=== PATIENT | male | born 1960 | race African-American/Black ===

== ENCOUNTER 2020-07-18 11:11 | Outpatient (CLI) | payer MEDICARE, MEDICAID, SELFPAY ==
--- NOTE | ~2020-07-18 | US_ITS ---
US abdomen limited INDICATION: Cirrhosis PROCEDURE: Realtime right upper abdominal ultrasound. COMPARISON: CT dated 04/03/2019 FINDINGS: The pancreas is normal without focal mass or pancreatic ductal dilation. Liver echotexture is somewhat heterogeneous. There is nodular surface to the liver, compatible with cirrhosis. No disc rete mass identified. There is normal directional flow in the portal vein. Spleen is enlarged measur ing 13.5 cm. There are gallstones. Common bile duct measures 3 mm. No sonographic Katz's sign. IMPRESSION: 1: Cirrhosis of the liver. 2: Splenomegaly. 3: Cholelithiasis. Reviewed, dictated and finalized at location A. OR PILOT
== END 2020-07-18 11:12 | disposition home or self-care (01) ==
LOC: ANHIMG 11:19
PROVIDERS: PCP Family Medicine Adolescent Medicine; Visit Provider Internal Medicine Gastroenterology
DX: K70.30 Alcoholic cirrhosis of liver without ascites (principal); R16.1 Splenomegaly, not elsewhere classified; K80.20 Calculus of gallbladder without cholecystitis without obstruction
CPT/HCPCS: 76705

== ENCOUNTER 2021-03-24 11:54 | Outpatient (CLI) | payer MEDICARE, MEDICAID, SELFPAY ==
--- NOTE | ~2021-03-24 | US_ITS ---
EXAMINATION: US right upper quadrant EXAM DATE: 03/24/2021 12:41 INDICATION: Cirrhosis of liver with ascites. TECHNIQUE: Multiple grayscale and Doppler images of the abdomen right upper quadrant were obtained (b y a technologist who performed the scan) and subsequently reviewed. Comparison is made to prior exami nation from 07/18/2020 FINDINGS: The pancreatic head and body are normal in appearance. The pancreatic tail is not visualized. Some liver surface undulations without discrete nodularity. There are no focal liver lesions identified. There is no evidence of intrahepatic biliary duct dilation. Portal venous flow was seen in the hep atopedal, normal direction and has normal Doppler waveform. No right-sided hydronephrosis. Common bile duct measures 2-3 mm, which is normal. The gallbladder wall is normal in thickness, with expected amount of distention. No sonographic evidence of pericholecystic fluid. Small poorly calci fied gallstones suspected. Technologist performing exam reports patient did not demonstrate sonograp hic Katz's sign. Please note that this sign is less reliable in patients who have received pain me dication. IMPRESSION: Cholelithiasis. Reviewed, dictated and finalized at location A. IMPRESSION: Cholelithiasis.
== END 2021-03-24 11:55 | disposition home or self-care (01) ==
PROVIDERS: PCP Family Medicine Adolescent Medicine; Visit Provider Internal Medicine Gastroenterology
DX: K74.60 Unspecified cirrhosis of liver (principal); R18.8 Other ascites; K80.20 Calculus of gallbladder without cholecystitis without obstruction
CPT/HCPCS: 76705

== ENCOUNTER 2021-07-29 19:33 | Inpatient (IN) | payer MEDICARE, MEDICAID, SELFPAY ==
--- NOTE | ~2021-07-29 | XR_ITS ---
EXAMINATION: XR chest 1V EXAM DATE: 07/30/2021 02:10 INDICATION: cough,left sided cp,head cold,nasal congestion,hx cirrhosis. TECHNIQUE: Portable AP frontal chest x-ray was obtained. Comparison is made to prior examination from 04/03/2019. FINDINGS: There is no focal air space disease. There are no pleural effusions. The cardiothymic bran houette is normal. There is no pneumothorax. There are no osseous or soft tissue abnormalities in t his skeletally immature patient. Lungs have normal volume. IMPRESSION: No acute cardiopulmonary findings. Reviewed, dictated and finalized at location A. HEAD ROLLER
--- NOTE | ~2021-07-29 | CT_ITS ---
EXAMINATION: CT abdomen pelvis wo con DATE: 07/30/2021 02:57 INDICATION: Decreased appetite. Cirrhosis. TECHNIQUE: Computed tomography (CT) of the abdomen and pelvis was performed without intravenous contr ast. Automated exposure control and iterative reconstruction technique were employed. The dose-length product was 326.36 mGy-cm. COMPARISON: CT abdomen and pelvis 04/03/2019 FINDINGS: The visualized portions of the lung bases are clear without pneumonia or pleural effusion. The heart size is normal. No pericardial effusion. The liver demonstrates a nodular surface contour, consistent with cirrhosis. The spleen is normal. There are gallstones in the gallbladder, which is no rmal in size. The pancreas and adrenal glands are normal. There is a 3 mm stone in right kidney. Ther e is a 1 mm stone in left kidney. There is a 2 mm stone in distal left ureter. There is a supraumbili mitchel hernia containing fat. There is a left inguinal hernia containing fat. There is an anastomosis in the rectosigmoid. The appendix is normal. There are no dilated loops of bowel. There are no patholog ically enlarged lymph nodes. There is no free intraperitoneal fluid. There is advanced right hip oste oarthritis. There is severe left hip osteoarthritis. There is mild lumbar spondylosis. IMPRESSION: 1. 2 mm stone in distal left ureter. No hydronephrosis. 2. Small bilateral nonobstructing kidney stones. 3. Supraumbilical ventral hernia containing fat. Left inguinal hernia containing fat. 4. Cirrhosis of the liver. 5. Cholelithiasis. Reviewed, dictated and finalized at location B. OGRAPHY/MAPPING TECHNICIAN IMPRESSION: 1. 2 mm stone in distal left ureter. No hydronephrosis. 2. Small bilateral nonobstructing kidney stones. 3. Supraumbilical ventral hernia containing fat. Left inguinal hernia containin g fat. 4. Cirrhosis of the liver. 5. Cholelithiasis.
--- NOTE | ~2021-07-29 | US_ITS ---
EXAMINATION: US scrotum doppler DATE: 08/04/2021 15:37 INDICATION: Scrotal swelling TECHNIQUE: Testicular sonogram utilizing grayscale and Doppler COMPARISON: CT dated 07/30/2021 FINDINGS: The right testis measures 2.3 x 3.3 x 2.4 cm. The left testis measures 3.7 x 2.9 x 2.1 cm. Symmetric normal grayscale appearance to both testes. There is normal vascular flow to both testes. The right e pididymis is normal with normal vascular flow. 7 mm left epididymal head cyst. The left epididymis is otherwise normal with normal vascular flow. There is no varicocele. Large right hydrocele. IMPRESSION: 1. Large right hydrocele which appears new since CT dated 07/30/2021. Otherwise unremarkable scrotal ultrasound. Reviewed, dictated and finalized at location B. LANE CAPTAIN IMPRESSION: 1. Large right hydrocele which appears new since CT dated 07/30/2021. Otherwis e unremarkable scrotal ultrasound.
--- NOTE | ~2021-07-29 | XR_ITS ---
EXAMINATION: XR abdomen/kub 1V EXAM DATE: 07/30/2021 06:15 INDICATION: Kidney stone. Left distal ureteral 1 mm stone. TECHNIQUE: Frontal projection(s) of the abdomen for interpretation. FINDINGS: Difficult to confidently identify the punctate left distal ureteral calcification seen on CT. There is rectosigmoid anastomosis material. Nonobstructive bowel gas pattern. 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 IMPRESSION: Can't confidently identify nephrolithiasis or left ureteral stone. Reviewed, dictated and finalized at location A. ESMITH HELPER
[2021-07-29 19:36] VITALS: BP 94/54; PULSE 57; RESP 18; TEMP 36.6; O2SAT 95
[2021-07-29 22:58] VITALS: BP 110/60; PULSE 75; RESP 18; O2SAT 100
[2021-07-30] VITALS (13 sets, daily range): BP systolic 119–157; BP diastolic 48–79; PULSE 55–75; RESP 14–18; TEMP 36.3–36.9; O2SAT 99–100; BMI 23.2
--- NOTE | 2021-07-30 01:45 | ED.GENADULT ---
HPI - General Adult General Chief complaint: Upper Respiratory Infection Stated complaint: weight loss, not taking care of himself Time Seen by Provider: 07/30/21 01:39 Source: RN notes reviewed History of Present Illness HPI narrative: Patient presents emergency department from home for upper respiratory infection. Patient states over the past 5 days he has had rhinorrhea with a cough this been nonproductive he also states that he has been having frequent sneezing. Family present with his sister she states the patient has been having increasing weakness and has had a weight loss of approximately 40 pounds over the past month patient states he has been feeling more weak in general he denies any fevers or chills chest pain shortness of breath abdominal pain nausea vomiting or any other symptoms Related Data Home Medications Medication Instructions Recorded Confirmed famotidine 07/30/21 fluticasone propionate INTRANASAL 07/30/21 furosemide 07/30/21 07/30/21 pantoprazole PO 07/30/21 spironolactone 07/30/21 trazodone 07/30/21 07/30/21 Allergies Allergy/AdvReac Type Severity Reaction Status Date / Time iodine Allergy Unknown Unknown Verified 07/30/21 03:24 Contrast Media Allergy Mild Hives / Uncoded 07/30/21 03:24 Red Face Review of Systems Review of Systems: Gen.: Denies fevers or chills Eyes: Denies eye pain or visual change ENT: Reports rhinorrhea Respiratory: Denies shortness of breath ports cough CV: Denies chest pain or palpitations GI: Denies abdominal pain nausea, emesis or diarrhea Musculoskeletal: Denies back pain or muscle pain Neuro: Reports weakness Skin: Denies rash Except as documented, all other systems reviewed and negative [facility] Past Medical History Medical History (Updated 07/30/21 @ 06:19 by Rony Geiger DO) Schizophrenia Family History Family History (Updated 11/11/18 @ 09:45 by DOCTOR UNKNOWN) Sibling Family history of malignant neoplasm Father Family history of lung cancer Mother Family history of congestive heart failure Other Hypertension Social History Social History Smoking status: Current every day smoker Exam Narrative: APPEARANCE: No acute distress, nontoxic, resting in bed EYES: EOMI HEENT: Normocephalic, atraumatic, OMM RESPIRATORY: No respiratory distress Clear to auscultation bilaterally with no rhonchi wheezing or rales. CARDIOVASCULAR: Regular rate and rhythm without murmurs rubs or gallops. ABDOMINAL: Soft, nontender, nondistended, no rebound or guarding MUSCULOSKELETAl: Moves all extremities. No clubbing, cyanosis or edema. NEURO: Awake and alert. Following commands, speech normal, no focal deficits SKIN:: Warm, dry. No rashes lesions or abrasions PSYCHIATRIC: Normal affect/mood, Course Course Emergency Course: Patient was initially seen in triage room secondary to [facility] being at peak census. Called and discussed with Dr. Guerra for urology presentation work-up agrees with consult to Dr. Akhtar with current antibiotics Discussed with Dr. Jalloh presentation work-up agrees with consult at this time Discussed with Dr. Wiseman presentation work-up agrees with admission Called and updated updated sister Discussed with patient and family results of workup and diagnosis. Discussed need for admission. Patient and family understand and agree to current treatment plan Vital Signs Vital signs: Vital Signs Temperature 97.8 F 07/29/21 19:36 Pulse Rate 57 L 07/29/21 19:36 Respiratory Rate 18 07/29/21 19:36 Blood Pressure 94/54 L 07/29/21 19:36 Pulse Oximetry 95 07/29/21 19:36 Temperature 97.8 F 07/29/21 19:36 Pulse Rate 63 07/30/21 06:00 Respiratory Rate 17 07/30/21 06:00 Blood Pressure 130/57 L 07/30/21 06:00 Pulse Oximetry 99 07/30/21 06:00 Medical Decision Making Vital Signs Vital Signs: Vital Signs Temperature 97.
[2021-07-30 02:02] LABS: Basophils Absolute Auto 0.1 K/mm3 (0.0-0.1); Eosinophils Absolute Auto 0.1 K/mm3 (0-0.3); Eosinophils Percent Auto 1.1 % (0-4.4); Hematocrit 34.4 % (42.0-52.0); Hemoglobin 10.4 g/dL (14.0-18.0); Immature Granulocyte Absolute 0.03 K/mm3 (0.00-0.031); Immature Granulocyte Percent A 0.4 % (0-0.5); Immature Platelet Fraction Pct 6.1 % (0.9-11.2); Lymphocytes Absolute Auto 2.09 K/mm3 (0.9-3.2); Lymphocytes Percent Auto 26.1 % (18.3-44.2); Mean Corpuscular HGB Conc 30.2 g/dl (32-36); Mean Corpuscular Hemoglobin 21.2 pg (26-34); Mean Corpuscular Volume 70.1 fl (80-100); Monocytes Absolute Auto 0.8 K/mm3 (0.1-0.6); Monocytes Percent Auto 9.6 % (2.6-8.5); Neutrophils Absolute Auto 4.9 K/mm3 (1.3-6.7); Neutrophils Percent Auto 61.8 % (45.5-73.1); Platelet Count Result 290 k/mm3 (150-375); Red Blood Count 4.91 M/mm3 (4.6-6.20); Red Cell Distribution Width 21.9 % (11.5-14.5)
[2021-07-30 02:11] LABS: INR 1.1; Prothrombin Time 14.5 Seconds (11.1-14.7)
[2021-07-30 02:12] LABS: Partial Thromboplastin Time 23.2 SECONDS (22.3-36.8)
[2021-07-30 02:13] LABS: Alanine Aminotransferase 12 U/L (4-50); Albumin Level 4.9 g/dL (3.5-5.1); Alkaline Phosphatase 99 U/L (38-126); Anion Gap 17 mmol/L (8-16); Aspartate Amino Transferase 29 U/L (17-59); Bilirubin,Total 1.1 mg/dL (0.2-1.3); Blood Urea Nitrogen 106 mg/dL (9-20); Carbon Dioxide 15 mmol/L (22-30); Chloride 102 mmol/L (98-107); Creatine Kinase 33 U/L (55-170); Estimated CRCL calculation 13 ml/min; Estimated Glomerular Filt Rate 12; Glucose 123 mg/dL (65-110); Lipase 694 U/L (23-300); Potassium 3.9 mmol/L (3.4-5.0); Sodium 134 mmol/L (137-145)
[2021-07-30 03:44] LABS: Add Urine Microscopic? YES; Appearance Urine Cloudy (Clear); Bacteria Urine 2+ /hpf; Bilirubin Urine Negative (Negative); Blood Urine 3+ (Negative); Color Urine Yellow (Yellow); Glucose Urine UA Negative (Negative); Ketones Urine Negative (Negative); Leukocyte Esterase Ur 3+ LEU/UL (Negative); Mucus Urine Rare /lpf; Nitrate Urine Negative (Negative); Protein Urine 2+ mg/dL (Negative); RBC Urine >75 /hpf (0-2); Specific Grav Ur 1.015 (1.001-1.035); Squamous Epithelial Cell Urine Rare /hpf (Few); Urobilinogen Urine Negative mg/dL (<2.0); WBC Clumps Urine Present /HPF; WBC Urine >75 /hpf
[2021-07-30] MEDS: SODIUM CHLORIDE 0.9% IV 1,000 ML 999 ML IV CONT ×2 (04:02→05:52)
--- NOTE | 2021-07-30 04:42 | PC.NURSE ---
spoke to Soledad in lab @[id number]. Adding on Ethanol blood test to blood in the lab.
[2021-07-30 04:58] LABS: Ethanol < 10 mg/dL (<10)
[2021-07-30 05:06] LABS: EDCOVIDSCREEN Negative (Negative)
[2021-07-30 05:40] LABS: Lactic Acid Reflex 0.9 mmol/L (0.7-2.1)
--- NOTE | 2021-07-30 07:06 | WPDURCON ---
Assessment and Plan Assessment and plan (1) Acute renal failure: Code(s): N17.9 - Acute kidney failure, unspecified Status: Acute (2) Acute UTI: Code(s): N39.0 - Urinary tract infection, site not specified Status: Acute (3) Left ureteral stone: Code(s): N20.1 - Calculus of ureter Status: Acute Assessment and Plan: Nonobstructing 1 mm left distal ureteral calculus is probably incidental -I doubt it is contributing to his acute kidney injury or overall clinical condition. I will not plan ureteroscopy with stone extraction in less his renal function fails to improve with supportive care. Urology Consult Note HPI Date Seen: 07/30/21 Requesting Physician: Miroslava Wiseman DO Primary Care Provider: Paolo Sargent MD Consult Narrative Narrative: Loy Cartwright is a 60 year old male, known to me from several years ago when he had a colovesical fistula. He now presents to the ER with generalized weakness and respiratory symptoms. During the course of evaluation was also found to have acute renal failure with a serum creatinine of 5.8. CT scan of the abdomen and pelvis revealed an incidental, nonobstructing 1 mm left distal ureteral calculus. Patient denies abdominal or flank pain, irritable voiding or hematuria. Review of Systems Cardiovascular: Cardiovascular: Denies chest pain, Denies lightheadedness, Denies palpitations and Denies dyspnea Respiratory: Respiratory: Denies dyspnea Gastrointestinal: Gastrointestinal: Denies diarrhea, Denies nausea and Denies vomiting Genitourinary: Genitourinary: Denies hematuria and Denies dysuria Endocrine: Endocrine: Denies palpitations [facility] Past Medical History Medical History Schizophrenia Family History Family History Sibling Family history of malignant neoplasm Father Family history of lung cancer Mother Family history of congestive heart failure Other Hypertension Social History Social History Smoking status: Current every day smoker Meds Home Medications and Allergies Home Medications Medication Instructions Recorded Confirmed Type famotidine 07/30/21 History fluticasone propionate INTRANASAL 07/30/21 History furosemide 07/30/21 07/30/21 History pantoprazole PO 07/30/21 History spironolactone 07/30/21 History trazodone 07/30/21 07/30/21 History Allergies Allergy/AdvReac Type Severity Reaction Status Date / Time iodine Allergy Unknown Unknown Verified 07/30/21 03:24 Contrast Media Allergy Mild Hives / Uncoded 07/30/21 03:24 Red Face Vital Signs Vital Signs - 24 hr 07/29/21 19:36 07/29/21 22:58 07/30/21 01:36 Temperature 97.8 F Pulse Rate 57 L 75 62 Respiratory Rate 18 18 18 Blood Pressure 94/54 L 110/60 119/70 Pulse Oximetry 95 100 100 07/30/21 03:16 07/30/21 03:31 07/30/21 03:46 Temperature Pulse Rate 62 55 L 64 Respiratory Rate 14 18 15 Blood Pressure 134/70 157/79 H 128/68 Pulse Oximetry 100 100 100 07/30/21 04:02 07/30/21 04:31 07/30/21 05:01 Temperature Pulse Rate 64 61 68 Respiratory Rate 17 17 16 Blood Pressure 129/64 128/66 130/63 Pulse Oximetry 100 99 100 07/30/21 05:30 07/30/21 06:00 07/30/21 06:31 Temperature Pulse Rate 70 63 69 Respiratory Rate 14 17 16 Blood Pressure 129/69 130/57 L 122/61 Pulse Oximetry 100 99 99 Exam Const: General: no acute distress Resp: Effort & Inspection: normal respiratory effort GI: Inspection: non-distended GI Palp: No abdominal tenderness and No Guarding due to palpation present (GI) Auscultation: normal bowel sounds Results Labs CBC & Chem 7: 07/30/21 01:56 07/30/21 01:56 Labs: Short CBC 07/30/21 Range/Units 01:56 WBC 8.0 (4.5-10.0) K/mm3 Hgb 10.4 L (14.0-18.0) g/dL
--- NOTE | 2021-07-30 07:10 | ADMGEN ---
This patient, Loy Cartwright, was admitted to [facility] Surg Room 317-02. Patient/family oriented to hospital policies and general routines including ID bracelet, bed and alarms, visiting hours, pain management, procedures, bathroom and other care routines, personal items, smoking policy, room service/diet, and visiting hours. Information on how to activate the Rapid Response Team has been discussed. Patient/Family are encouraged to report perceived risks to care and to ask questions if they do not understand what they are told or what they should do.
--- NOTE | 2021-07-30 10:22 | PM.CNNEP ---
Assessment and Plan Assessment and plan (1) Acute renal failure: Code(s): N17.9 - Acute kidney failure, unspecified Status: Acute Assessment and Plan: Patient has a baseline creatinine of less than 1.0. He has acute kidney injury. He has diarrhea plus poor intake for 2 weeks. I suspect to has dehydration and renal failure on that basis. He has a UTI which could contribute as well. He does have cirrhosis but I do not think he has hepatorenal syndrome in the setting. Rhabdomyolysis was ruled out by a normal CPK in the ER. The patient had a CT scan which will doubt obstruction. Interstitial nephritis and glomerulonephritis are unlikely in this clinical situation. Will check urine electrolytes. Will give IV fluids. (2) Acute UTI: Code(s): N39.0 - Urinary tract infection, site not specified Status: Acute Assessment and Plan: The patient has pyuria. He has had this before. Cultures are pending. He is on antibiotics. (3) Metabolic acidosis: Code(s): E87.2 - Acidosis Status: Acute Assessment and Plan: The patient has metabolic acidosis. His bicarbonate level is 15. His baseline is around 23. His anion gap is 17 and his baseline anion gap is 10. So he has a difference between his delta bicarbonate and his delta anion gap. Therefore this is metabolic acidosis partially anion gap and partially non anion gap. The former is most likely due to the renal failure and uremic toxins. His lactic acid level was okay. The latter is probably due to the diarrhea. Will give IV fluids with bicarbonate. I normally would not plan with bicarbonate alone however since he is dehydrated, if he is given IV fluids without bicarb his serum bicarbonate level will drop. (4) Diarrhea: Code(s): R19.7 - Diarrhea, unspecified Status: Acute Assessment and Plan: Check stool cultures (5) Kidney stone on left side: Code(s): N20.0 - Calculus of kidney Status: Acute Assessment and Plan: Patient has multiple kidney stones on CT scan. They are not seen on KUB. He probably needs further workup for these but we can do this as an outpatient if he follows up. (6) Cirrhosis of liver: Code(s): K74.60 - Unspecified cirrhosis of liver Status: Acute Assessment and Plan: This may be due to drinking. He sees a liver doctor at [place]. History of Present Illness Reason for Consult Consult date: 07/30/21 Chief Complaint Chief complaint: Acute Renal Failure,UTIl,Left Kidney Stone History of Present Illness Narrative: Loy is a very pleasant 60-year-old gentleman who has diverticulosis, history of diverticulitis, colovesical fistula in the past, bladder tumor status post her a few years ago, tobacco use abuse, arthritis, alcoholism, elevated liver enzymes. The patient came in the hospital because he has been sick for 2 weeks. He says he has diarrhea. No blood. He says every time he eats or drinks anything he has an episode of diarrhea. He has some nausea occasionally. He does have an alcohol history and takes a few sips severe and ?even that causes his diarrhea. He has some indigestion as well which was treated with famotidine as an outpatient and seems to be little bit better but still is present. He has a cough over the last 5 days. He came to the ER complaining of the above. He is currently very thirsty. He continues to have diarrhea. No vomiting. No swelling shortness of breath fevers or chills. Review of Systems Constitutional: Constitutional: Reports no additional constitutional complaints Eyes: Eyes: Reports no additional eye complaints ENT: Reports system reviewed and no additional complaints, except as documented Cardiovascular: Cardiovascular: Reports no additional cardiovascular complaints Respiratory: Respiratory: Reports no additional respiratory complaints Gastrointestinal: Gastrointestinal: Reports no additi
[2021-07-30] MEDS: SODIUM CHLORIDE 0.9% IV 1,000 ML 125 ML IV CONT (11:18)
--- NOTE | 2021-07-30 13:35 | PM.IMHP ---
H&P: HPI History of Present Illness Date/Time: 07/30/21 13:35 Chief Complaint: Generalized weakness Narrative: Is a 60-year-old male presents to the hospital with feeling weak is been progressively getting worse over the past month. He has been having diarrhea whenever he eats and hence has not been eating as much. Nausea vomiting reported denies any abdominal pain feeling generally weak denies any fever or chills. He was noted to have acute renal failure and getting admitted for further evaluation and treatment. He has been NPO diet as well Review of Systems Review of Systems: - CONSTITUTIONAL: Denies weight loss, fever and chills. - HEENT: Denies changes in vision and hearing - RESPIRATORY: Denies SOB and cough. - CV: Denies palpitations and CP. - GI: Denies abdominal pain, nausea, vomiting and reports diarrhea. - : Denies dysuria and urinary frequency. - MSK: Denies myalgia and joint pain. - SKIN: Denies rash and pruritus. - NEUROLOGICAL: Denies headache and syncope. Reports generalized weakness - PSYCHIATRIC: Denies recent changes in mood. Denies anxiety and depression. All systems reviewed & are unremarkable except as noted in HPI and below Constitutional: Constitutional: Reports fatigue and Reports weakness Neurologic: Reports weakness Endocrine: Endocrine: Reports fatigue PMFSH Past Medical History Medical History (Updated 07/30/21 @ 10:31 by Erik Jalloh MD) Cirrhosis of liver Diarrhea Metabolic acidosis Schizophrenia Family History Family History Sibling Family history of malignant neoplasm Father Family history of lung cancer Mother Family history of congestive heart failure Other Hypertension Social History Social History Smoking packs per day: 0.5 Smoking cigarettes per day: 10.0 Years smoked: 41 Smoking pack-years: 20.50 Smoking status: Current every day smoker Tobacco type: cigarettes Alcohol intake: current Drinks per week: 7 Substance use: current Substance use type: marijuana Last use: 07/28/21 Spiritual care concerns: No Meds Home Medications and Allergies Home Medications Medication Instructions Recorded Confirmed Type famotidine 40 mg PO DAILY 07/30/21 07/30/21 History fluticasone propionate 50 mcg INTRANASAL DAILY 07/30/21 07/30/21 History furosemide 20 mg PO DAILY 07/30/21 07/30/21 History nadolol 20 mg PO DAILY 07/30/21 07/30/21 History pantoprazole 40 mg PO BID 07/30/21 07/30/21 History spironolactone 50 mg PO DAILY 07/30/21 07/30/21 History trazodone 100 mg PO HS 07/30/21 07/30/21 History Allergies Allergy/AdvReac Type Severity Reaction Status Date / Time iodine Allergy Unknown Unknown Verified 07/30/21 03:24 Contrast Media Allergy Mild Hives / Uncoded 07/30/21 03:24 Red Face Vital Signs Vital Signs - 24 hr 07/29/21 19:36 07/29/21 22:58 07/30/21 01:36 Temperature 97.8 F Pulse Rate 57 L 75 62 Respiratory Rate 18 18 18 Blood Pressure 94/54 L 110/60 119/70 Pulse Oximetry 95 100 100 07/30/21 03:16 07/30/21 03:31 07/30/21 03:46 Temperature Pulse Rate 62 55 L 64 Respiratory Rate 14 18 15 Blood Pressure 134/70 157/79 H 128/68 Pulse Oximetry 100 100 100 07/30/21 04:02 07/30/21 04:31 07/30/21 05:01 Temperature Pulse Rate 64 61 68 Respiratory Rate 17 17 16 Blood Pressure 129/64 128/66 130/63 Pulse Oximetry 100 99 100 07/30/21 05:30 07/30/21 06:00 07/30/21 06:31 Temperature Pulse Rate 70 63 69 Respiratory Rate 14 17 16 Blood Pressure 129/69 130/57 L 122/61 Pulse Oximetry 100 99 99 07/30/21 07:43 Temperature 97.4 F L Pulse Rate 60 Respiratory Rate 18 Blood Pressure 122/51 L Pulse Oximetry 100 Exam Narrative: GENERAL: The patient is well developed, not in acute distress HEENT: Nonicteric sclerae, PERRLA, EOMI. Oropharynx clear. Moist mucous membranes. C
[2021-07-30 13:44] LABS: Creatinine Urine 78.7 mg/dL; Total Protein Urine Random 58 mg/dL; Ur Ttl Prot Creatinine Ratio 0.74 mg/mg (0-0.20)
[2021-07-30 13:54] LABS: Sodium Urine Random 40 meq/L
[2021-07-30 16:04] LABS: Iron 50 ug/dL (49-181)
[2021-07-30 16:13] LABS: Percent Iron Saturation 15 % (20-50)
[2021-07-30 16:37] LABS: Folic Acid 8.1 ng/mL (2.76->20)
[2021-07-30] MEDS: PANTOPRAZOLE 40 MG TABLET PO (17:23)
[2021-07-30] MEDS: SODIUM BICARBONATE 8.4% 100 MEQ in WATER, STERILE FOR INJECTION 1,000 ML IV CONT (17:29)
[2021-07-30] MEDS: traZODone HCL 50 MG TABLET 100 MG PO (20:43)
[2021-07-31] MEDS: SODIUM BICARBONATE 8.4% 100 MEQ in WATER, STERILE FOR INJECTION 1,000 ML IV CONT (04:35)
[2021-07-31 05:26] VITALS: BP 117/49; PULSE 56; RESP 18; TEMP 37.1; O2SAT 100
--- NOTE | 2021-07-31 07:28 | WPDUROPN2 ---
Progress Note: A&P Assessment and Plan (1) Left ureteral stone: Code(s): N20.1 - Calculus of ureter Status: Acute Assessment and Plan: Tiny, non-obstructing 1-2mm left UVJ stone likely not clinically significant and not contributing KEYONNA. Await morning labs - no plans for intervention if improving with hydration/supportive care. Subjective Subjective Date/Time Seen: 07/31/21 07:28 Comfortable, no abdominal/flank pain Review of Systems Cardiovascular: Cardiovascular: Denies chest pain, Denies lightheadedness, Denies palpitations and Denies dyspnea Respiratory: Respiratory: Denies dyspnea Gastrointestinal: Gastrointestinal: Denies diarrhea, Denies nausea and Denies vomiting Genitourinary: Genitourinary: Denies hematuria and Denies dysuria Endocrine: Endocrine: Denies palpitations Exam Const: General: no acute distress Resp: Effort & Inspection: normal respiratory effort GI: Inspection: non-distended GI Palp: No abdominal tenderness and No Guarding due to palpation present (GI) Auscultation: normal bowel sounds Objective Data Vital Signs Vital Signs: Vital Signs - 24 hr 07/30/21 07:43 07/30/21 14:00 07/30/21 22:00 Temperature 97.4 F L 97.7 F 98.5 F Pulse Rate 60 57 L 75 Respiratory Rate 18 16 16 Blood Pressure 122/51 L 119/54 L 119/48 L Pulse Oximetry 100 100 100 07/31/21 05:26 Temperature 98.7 F Pulse Rate 56 L Respiratory Rate 18 Blood Pressure 117/49 L Pulse Oximetry 100 Intake/Output Intake/Output: Intake & Output 07/28/21 07/29/21 07/30/21 07/31/21 23:59 23:59 23:59 23:59 Intake Total 3040 1900 Output Total 2700 1200 Balance 340 700 Meds/Results Medications: Active Medications Generic Name Dose Route Start Last Admin Trade Name Freq PRN Reason Stop Dose Admin Famotidine 40 mg 07/31/21 09:00 Famotidine 20 Mg Tablet PO DAILY JANIE Fluticasone Propionate 2 spray 07/31/21 09:00 Fluticasone Propionate 0.05% Na Spr 16 Gm Btl (*Bkc) NASAL DAILY JANIE Ceftriaxone Sodium/Dextrose 1 gm in 50 mls @ 100 mls/hr 07/31/21 04:00 07/31/21 05:09 Rocephin 1 Gm/D5w 50 Ml IVPB Infused Q24H JANIE Infusion Sodium Bicarbonate 100 meq/ 1,100 mls @ 100 mls/hr 07/30/21 11:00 07/31/21 04:35 Sterile Water IV CONT 100 mls/hr .Q11H JANIE Administration Nadolol 20 mg 07/31/21 09:00 Nadolol 20 Mg Tablet PO DAILY JANIE Pantoprazole Sodium 40 mg 07/30/21 17:00 07/30/21 17:23 Pantoprazole 40 Mg Tablet PO 40 mg BID JANIE Administration Trazodone HCl 100 mg 07/30/21 21:00 07/30/21 20:43 Trazodone Hcl 50 Mg Tablet PO 100 mg HS JANIE Administration Radiology Results: ITS Impressions Abdomen X-Ray 07/30/21 06:49 IMPRESSION: Can't confidently identify nephrolithiasis or left ureteral stone. Chest X-Ray 07/30/21 08:01 IMPRESSION: No acute cardiopulmonary findings. Abdomen/Pelvis CT 07/30/21 08:14 IMPRESSION: 1. 2 mm stone in distal left ureter. No hydronephrosis. 2. Small bilateral nonobstructing kidney stones. 3. Supraumbilical ventral hernia containing fat. Left inguinal hernia containing fat. 4. Cirrhosis of the liver. 5. Cholelithiasis. Labs Labs: Laboratory Results - last 24 hr 07/30/21 07/30/21 07/30/21 12:36 15:11 15:11 Iron 50 TIBC 344 % Saturation 15 L Vitamin B12 899.0 Folate 8.1 U Random Total Protein 58 Ur Random Sodium 40 Urine Creatinine 78.7 Protein/Creat Ratio 2 0.74 H
[2021-07-31 08:00] VITALS: PULSE 60; RESP 18; O2SAT 100
[2021-07-31 08:05] LABS: Basophils Percent Auto 0.5 % (0.2-1.2); Eosinophils Percent Auto 0.7 % (0-4.4); Hematocrit 25.2 % (42.0-52.0); Hemoglobin 7.8 g/dL (14.0-18.0); Immature Granulocyte Absolute 0.03 K/mm3 (0.00-0.031); Immature Granulocyte Percent A 0.5 % (0-0.5); Immature Platelet Fraction Pct 5.7 % (0.9-11.2); Lymphocytes Absolute Auto 1.48 K/mm3 (0.9-3.2); Lymphocytes Percent Auto 26.3 % (18.3-44.2); Mean Corpuscular Hemoglobin 21.5 pg (26-34); Mean Corpuscular Volume 69.6 fl (80-100); Mean Platelet Volume 11.1 fl (7.4-10.4); Monocytes Absolute Auto 0.7 K/mm3 (0.1-0.6); Neutrophils Absolute Auto 3.3 K/mm3 (1.3-6.7); Platelet Count Result 187 k/mm3 (150-375); Red Blood Count 3.62 M/mm3 (4.6-6.20); Red Cell Distribution Width 21.1 % (11.5-14.5); White Blood Count 5.6 K/mm3 (4.5-10.0)
[2021-07-31 08:08] LABS: Albumin Level 3.3 g/dL (3.5-5.1); Anion Gap 6 mmol/L (8-16); Blood Urea Nitrogen 50 mg/dL (9-20); CRP 1.6 mg/dL (<1.0); Calcium 8.8 mg/dL (8.4-10.2); Carbon Dioxide 21 mmol/L (22-30); Chloride 108 mmol/L (98-107); Estimated CRCL calculation 53 ml/min; Estimated Glomerular Filt Rate > 60; Glucose 100 mg/dL (65-110); Lipase 1084 U/L (23-300); Magnesium 2.2 mg/dL (1.6-2.3); Phosphorus 2.4 mg/dL (2.5-4.5); Potassium 2.8 mmol/L (3.4-5.0); Sodium 135 mmol/L (137-145)
[2021-07-31] MEDS: POTASSIUM CHLORIDE 20 MEQ TABLET 40 MEQ PO (08:39)
[2021-07-31 08:42] VITALS: PULSE 60
[2021-07-31] MEDS: nadoloL 20 MG TABLET PO (08:42)
[2021-07-31] MEDS: FLUTICASONE PROPIONATE 0.05% NA SPR 16 GM BTL (*BKC) 2 SPRAY NASAL (08:43)
[2021-07-31] MEDS: FAMOTIDINE 20 MG TABLET 40 MG PO (08:43)
[2021-07-31] MEDS: PANTOPRAZOLE 40 MG TABLET PO ×2 (08:43→16:52)
[2021-07-31] MEDS: POTASSIUM CHLORIDE INJ 40 MEQ in SODIUM CHLORIDE 0.9% IV 500 ML 130 MEQ IVPB (09:19)
--- NOTE | 2021-07-31 10:00 | PM.PNNEP ---
Progress Note: A&P Assessment and Plan (1) Acute renal failure: Code(s): N17.9 - Acute kidney failure, unspecified Status: Acute Assessment and Plan: Patient has a baseline creatinine of less than 1.0. He has acute kidney injury. CT scan ruled out obstruction. Urine electrolytes were non pre renal but he was on diuretics on admission. CPK normal Creatinine has improved dramatically with hydration. He is eating again. We can cut back on the IV fluids a little bit. (2) Acute UTI: Code(s): N39.0 - Urinary tract infection, site not specified Status: Acute Assessment and Plan: The patient has pyuria. Culture shows Serratia marcescens On antibiotics (3) Metabolic acidosis: Code(s): E87.2 - Acidosis Status: Acute Assessment and Plan: The patient has metabolic acidosis. Bicarbonate level is much better. Will continue IV fluids for now. But lower the rate (4) Diarrhea: Code(s): R19.7 - Diarrhea, unspecified Status: Acute Assessment and Plan: Two stools yesterday. (5) Kidney stone on left side: Code(s): N20.0 - Calculus of kidney Status: Acute Assessment and Plan: Patient has multiple kidney stones on CT scan. They are not seen on KUB. He probably needs further workup for these but we can do this as an outpatient if he follows up. (6) Cirrhosis of liver: Code(s): K74.60 - Unspecified cirrhosis of liver Status: Acute Assessment and Plan: This may be due to drinking. He sees a liver doctor at [place]. Subjective Date/time seen: 07/31/21 10:00 Interval history: Patient feels a little bit better. No chest pain or shortness of breath Review of Systems Cardiovascular: Cardiovascular: Reports no additional cardiovascular complaints Respiratory: Respiratory: Reports no additional respiratory complaints Gastrointestinal: Gastrointestinal: Reports no additional gastrointestinal complaints Genitourinary: Genitourinary: Reports no additional male genitourinary complaints Exam Narrative: WDWN in NAD skin no rash head ncat lungs clear cor reg no rub abd BS+ nontender and soft ext no edema. Objective Data Vital Signs Vital Signs: Vital Signs - 24 hr 07/30/21 14:00 07/30/21 22:00 07/31/21 05:26 Temperature 36.5 C 36.9 C 37.1 C Pulse Rate 57 L 75 56 L Respiratory Rate 16 16 18 Blood Pressure 119/54 L 119/48 L 117/49 L Pulse Oximetry 100 100 100 07/31/21 08:42 Temperature Pulse Rate 60 Respiratory Rate Blood Pressure Pulse Oximetry Intake/Output Intake/Output: Intake & Output 07/28/21 07/29/21 07/30/21 07/31/21 23:59 23:59 23:59 23:59 Intake Total 3040 2140 Output Total 2700 1200 Balance 340 940 Meds/Results Medications: Active Medications Generic Name Dose Route Start Last Admin Trade Name Freq PRN Reason Stop Dose Admin Famotidine 40 mg 07/31/21 09:00 07/31/21 08:43 Famotidine 20 Mg Tablet PO 40 mg DAILY JANIE Administration Fluticasone Propionate 2 spray 07/31/21 09:00 07/31/21 08:43 Fluticasone Propionate 0.05% Na Spr 16 Gm Btl (*Bkc) NASAL 2 spray DAILY JANIE Administration Ceftriaxone Sodium/Dextrose 1 gm in 50 mls @ 100 mls/hr 07/31/21 04:00 07/31/21 05:09 Rocephin 1 Gm/D5w 50 Ml IVPB Infused Q24H JANIE Infusion Sodium Bicarbonate 100 meq/ 1,100 mls @ 100 mls/hr 07/30/21 11:00 07/31/21 04:35 Sterile Water IV CONT 100 mls/hr .Q11H JANIE Administration Potassium Chloride 40 meq/ 520 mls @ 130 mls/hr 07/31/21 08:10 07/31/21 09:19 Sodium Chloride IVPB 07/31/21 12:09 130 mls/hr ONCE ONE Administration Nadolol 20 mg 07/31/21 09:00 07/31/21 08:42 Nadolol 20 Mg Tablet PO 20 mg DAILY JANIE Administration Pantoprazole Sodium 40 mg 07/30/21 17:00 07/31/21 08:43 Pantoprazole 40 Mg Tablet PO 40 mg BID JANIE Administration Trazodone HCl 100 mg 07/30/21 21:00 07/30/21 20
--- NOTE | 2021-07-31 12:26 | PM.IMPN ---
Progress Note: A&P Assessment and Plan (1) Metabolic acidosis: Code(s): E87.2 - Acidosis Status: Acute (2) Cirrhosis of liver: Code(s): K74.60 - Unspecified cirrhosis of liver Status: Acute (3) Diarrhea: Code(s): R19.7 - Diarrhea, unspecified Status: Acute (4) Left ureteral stone: Code(s): N20.1 - Calculus of ureter Status: Acute (5) Acute renal failure: Code(s): N17.9 - Acute kidney failure, unspecified Status: Acute (6) Acute UTI: Code(s): N39.0 - Urinary tract infection, site not specified Status: Acute (7) Kidney stone on left side: Code(s): N20.0 - Calculus of kidney Status: Acute (8) Schizophrenia: Code(s): F20.9 - Schizophrenia, unspecified Status: Acute (9) Hypokalemia: Code(s): E87.6 - Hypokalemia Status: Acute Additional Plan # Acute renal failure baseline creatinine 1 no history of chronic a kidney disease in the past. Likely prerenal/ATN underlying UTI as well. On IV fluid resuscitation. Renal following. CK is normal lipase is elevated at 694. Admission creatinine of 5.8 with IV hydration down to 1.6 today dramatic improvement. Likely due to dehydration with ongoing diarrhea # UTI on ceftriaxone follow urine culture urine culture with Serratia marcescens. Await identification # metabolic acidosis due to renal failure on bicarb drip improving on bicarb drip continue same # diarrhea since a month will order stool studies await stool studies. # Mild anemia active signs of bleeding continue to monitor H&H is dropped quite a bit today no obvious signs of bleeding. He is on PPI. Maybe hemodilution. 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 He is eating okay but still having diarrhea. No fever chills. No nausea vomiting. Reports abdomen is sore Review of Systems Review of Systems: All systems reviewed & are unremarkable except as noted in HPI and below Exam Narrative: GENERAL: The patient is well developed, not in acute distress HEENT: Nonicteric sclerae, PERRLA, EOMI. Oropharynx clear. Moist mucous membranes. Conjunctivae appear well perfused. CHEST: Chest wall is nontender. HEART: Regular rate and rhythm without murmur, rubs, or gallops LUNGS: Clear to auscultation bilaterally. no respiratory distress ABDOMEN: Soft, positive bowel sounds, non-tender, no organomegaly. SKIN: No rash, no excessive bruising, petechiae, or purpura. NEUROLOGIC: Cranial nerves II-XII intact, alert and oriented x 3, no gross motor deficits EXTREMITIES: no edema, cyanosis or clubbing Objective Data Vital Signs Vital Signs: Vital Signs - 24 hr 07/30/21 14:00 07/30/21 22:00 07/31/21 05:26 Temperature 97.7 F 98.5 F 98.7 F Pulse Rate 57 L 75 56 L Respiratory Rate 16 16 18 Blood Pressure 119/54 L 119/48 L 117/49 L Pulse Oximetry 100 100 100 07/31/21 08:00 07/31/21 08:42 Temperature Pulse Rate 60 60 Respiratory Rate 18 Blood Pressure Pulse Oximetry 100 Intake/Output Intake/Output: Intake & Output 07/28/21 07/29/21 07/30/21 07/31/21 23:59 23:59 23:59 23:59 Intake Total 3040 2140 Output Total 2700 1200 Balance 340 940 Meds/Results Medications: Active Medications Generic Name Dose Route Start Last Admin Trade Name Tayeq PRN Reason Stop Dose Admin Famotidine 40 mg 07/31/21 09:00 07/31/21 08:43 Famotidine 20 Mg Tablet PO 40 mg DAILY JANIE Administration Fluticasone Propionate 2 spray 07/31/21 09:00 07/31/21 08:43 Fluticasone Propionate 0.05% Na Spr
[2021-07-31 14:00] VITALS: BP 119/62; PULSE 70; RESP 14; TEMP 36.9; O2SAT 100
[2021-07-31] MEDS: POTASSIUM PHOS/SODIUM PHOS 250 MG TABLET PO (16:51)
[2021-07-31] MEDS: SODIUM BICARBONATE 8.4% 75 MEQ in WATER, STERILE FOR INJECTION 1,000 ML 100 MEQ IV CONT ×2 (16:52→22:06)
[2021-07-31 17:41] LABS: IFOB Positive Control Positive; Immunochemical Fecal Occult Bl Positive (N)
--- NOTE | 2021-07-31 18:04 | PC.NURSE ---
MD Grimaldo called to report positive occult stool result, awaiting call back.
--- NOTE | 2021-07-31 18:55 | PC.NURSE ---
Spoke with Zaina pt sister, stated MD Zepeda is pt liver doctor [facility], MD Mando Siegel is the doctor that did pt fistula repair, and pt urologist is Hermilo at [facility]. Sister would like to speak with MD Akhtar. Zaina's phone number is [phone].
[2021-07-31 18:57] LABS: Anion Gap 10 mmol/L (8-16); Blood Urea Nitrogen 33 mg/dL (9-20); Calcium 8.7 mg/dL (8.4-10.2); Carbon Dioxide 20 mmol/L (22-30); Chloride 107 mmol/L (98-107); Estimated CRCL calculation 73 ml/min; Estimated Glomerular Filt Rate > 60; Glucose 140 mg/dL (65-110); Potassium 3.5 mmol/L (3.4-5.0); Sodium 137 mmol/L (137-145)
[2021-07-31 21:19] VITALS: BP 129/55; PULSE 63; RESP 14; TEMP 37.1; O2SAT 100
[2021-07-31] MEDS: traZODone HCL 50 MG TABLET 100 MG PO (22:07)
[2021-08-01 06:00] VITALS: BP 114/52; PULSE 62; RESP 14; TEMP 36.3; O2SAT 100
[2021-08-01 06:38] LABS: Basophils Percent Auto 0.8 % (0.2-1.2); Eosinophils Absolute Auto 0.1 K/mm3 (0-0.3); Eosinophils Percent Auto 1.2 % (0-4.4); Hematocrit 25.1 % (42.0-52.0); Hemoglobin 7.4 g/dL (14.0-18.0); Immature Granulocyte Absolute 0.03 K/mm3 (0.00-0.031); Immature Granulocyte Percent A 0.6 % (0-0.5); Immature Platelet Fraction Pct 5.9 % (0.9-11.2); Lymphocytes Absolute Auto 1.54 K/mm3 (0.9-3.2); Lymphocytes Percent Auto 30.2 % (18.3-44.2); Mean Corpuscular HGB Conc 29.5 g/dl (32-36); Mean Corpuscular Hemoglobin 20.8 pg (26-34); Mean Corpuscular Volume 70.5 fl (80-100); Monocytes Absolute Auto 0.6 K/mm3 (0.1-0.6); Monocytes Percent Auto 12.4 % (2.6-8.5); Neutrophils Absolute Auto 2.8 K/mm3 (1.3-6.7); Neutrophils Percent Auto 54.8 % (45.5-73.1); Platelet Count Result 159 k/mm3 (150-375); Red Blood Count 3.56 M/mm3 (4.6-6.20); Red Cell Distribution Width 21.2 % (11.5-14.5); White Blood Count 5.1 K/mm3 (4.5-10.0)
[2021-08-01 07:00] LABS: Alanine Aminotransferase 22 U/L (4-50); Alkaline Phosphatase 72 U/L (38-126); Anion Gap 4 mmol/L (8-16); Aspartate Amino Transferase 43 U/L (17-59); Bilirubin,Total 0.5 mg/dL (0.2-1.3); Blood Urea Nitrogen 18 mg/dL (9-20); Calcium 8.4 mg/dL (8.4-10.2); Carbon Dioxide 25 mmol/L (22-30); Chloride 106 mmol/L (98-107); Estimated CRCL calculation 80 ml/min; Estimated Glomerular Filt Rate > 60; Glucose 108 mg/dL (65-110); Lipase 763 U/L (23-300); Magnesium 1.7 mg/dL (1.6-2.3); Phosphorus 1.4 mg/dL (2.5-4.5); Potassium 2.9 mmol/L (3.4-5.0); Sodium 135 mmol/L (137-145)
[2021-08-01 07:33] LABS: Platelet Estimate Adequate (Adequate)
[2021-08-01 07:34] LABS: Anisocytosis 1+ (NORMAL); Hypochromasia 1+ (NORMAL)
[2021-08-01 08:00] VITALS: PULSE 66; RESP 14; O2SAT 100
[2021-08-01] MEDS: PANTOPRAZOLE 40 MG TABLET PO ×2 (09:22→17:12)
[2021-08-01] MEDS: FAMOTIDINE 20 MG TABLET 40 MG PO (09:22)
[2021-08-01 09:23] VITALS: PULSE 66
[2021-08-01] MEDS: FLUTICASONE PROPIONATE 0.05% NA SPR 16 GM BTL (*BKC) 2 SPRAY NASAL (09:23)
[2021-08-01] MEDS: KCL 20 MEQ/SW 100 ML 100 ML 50 MEQ IVPB (09:23)
[2021-08-01] MEDS: nadoloL 20 MG TABLET PO (09:23)
[2021-08-01] MEDS: POTASSIUM/PHOSPHORUS/SODIUM 1.5 GM PACKET 1 PACKET PO ×2 (09:25→17:12)
[2021-08-01] MEDS: MAGNESIUM SULF 2 GM/WATER 50ML 2 GM/50 ML BAG IVPB (09:25)
[2021-08-01] MEDS: POTASSIUM CHLORIDE 20 MEQ TABLET 40 MEQ PO (09:27)
--- NOTE | 2021-08-01 09:46 | PC.NURSE ---
called pharmacy to get new flonas for pt, pt requesting new cap r/t cap being thrown away.
--- NOTE | 2021-08-01 10:02 | PM.PNNEP ---
Progress Note: A&P Assessment and Plan (1) Acute renal failure: Code(s): N17.9 - Acute kidney failure, unspecified Status: Acute Assessment and Plan: Patient has a baseline creatinine of less than 1.0. He has acute kidney injury. CT scan ruled out obstruction. Urine electrolytes were non pre renal but he was on diuretics on admission. CPK normal Creatinine has improved and is now normal. We discussed that he needs to come to to get medical attention way sooner than 2 weeks into the course of his illness. Nephrology will sign off. (2) Acute UTI: Code(s): N39.0 - Urinary tract infection, site not specified Status: Acute Assessment and Plan: Serratia marcescens On ceftriaxone. The organism is sensitive to this. (3) Metabolic acidosis: Code(s): E87.2 - Acidosis Status: Acute Assessment and Plan: The patient has metabolic acidosis. Bicarbonate level is now normal. He is eating. Will stop IV fluids. (4) Diarrhea: Code(s): R19.7 - Diarrhea, unspecified Status: Acute Assessment and Plan: Two stools yesterday. (5) Kidney stone on left side: Code(s): N20.0 - Calculus of kidney Status: Acute Assessment and Plan: Patient has multiple kidney stones on CT scan. They are not seen on KUB. He probably needs further workup for these but we can do this as an outpatient if he follows up. (6) Cirrhosis of liver: Code(s): K74.60 - Unspecified cirrhosis of liver Status: Acute Assessment and Plan: This may be due to drinking. He sees a liver doctor at [place]. Subjective Date/time seen: 08/01/21 10:02 Interval history: Patient feels better. Eating okay and. No more nausea or vomiting. Exam Narrative: WDWN in NAD skin no rash or subQ nodules head ncat lungs clear bilaterally cor reg no rub or gallop abd BS+ nontender and soft ext no edema. Objective Data Vital Signs Vital Signs: Vital Signs - 24 hr 07/31/21 14:00 07/31/21 21:19 08/01/21 06:00 Temperature 36.9 C 37.1 C 36.3 C L Pulse Rate 70 63 62 Respiratory Rate 14 14 14 Blood Pressure 119/62 129/55 L 114/52 L Pulse Oximetry 100 100 100 08/01/21 09:23 Temperature Pulse Rate 66 Respiratory Rate Blood Pressure Pulse Oximetry Intake/Output Intake/Output: Intake & Output 07/29/21 07/30/21 07/31/21 08/01/21 23:59 23:59 23:59 23:59 Intake Total 3040 4925 50 Output Total 2700 2625 Balance 340 2300 50 Meds/Results Medications: Active Medications Generic Name Dose Route Start Last Admin Trade Name Stefanie PRN Reason Stop Dose Admin Famotidine 40 mg 07/31/21 09:00 08/01/21 09:22 Famotidine 20 Mg Tablet PO 40 mg DAILY JANIE Administration Fluticasone Propionate 2 spray 07/31/21 09:00 08/01/21 09:23 Fluticasone Propionate 0.05% Na Spr 16 Gm Btl (*Bkc) NASAL 2 spray DAILY JANIE Administration Ceftriaxone Sodium/Dextrose 1 gm in 50 mls @ 100 mls/hr 07/31/21 04:00 08/01/21 05:30 Rocephin 1 Gm/D5w 50 Ml IVPB Infused Q24H JANIE Infusion Nadolol 20 mg 07/31/21 09:00 08/01/21 09:23 Nadolol 20 Mg Tablet PO 20 mg DAILY JANIE Administration Pantoprazole Sodium 40 mg 07/30/21 17:00 08/01/21 09:22 Pantoprazole 40 Mg Tablet PO 40 mg BID JANIE Administration Potassium Phos/Sodium Phos 1 packet 08/01/21 09:00 08/01/21 09:25 Potassium/Phosphorus/Sodium 1.5 Gm Packet PO 08/02/21 17:01 1 packet BID JANIE Administration Trazodone HCl 100 mg 07/30/21 21:00 07/31/21 22:07 Trazodone Hcl 50 Mg Tablet PO 100 mg HS JANIE Administration Radiology Results: ITS Impressions Abdomen X-Ray 07/30/21 06:49 IMPRESSION: Can't confidently identify nephrolithiasis or left ureteral stone. Chest X-Ray 07/30/21 08:01 IMPRESSION: No acute cardiopulmonary findings. Abdomen/Pelvis CT 07/30/21 08:14 IMPRESSION: 1. 2 mm stone in distal left ureter. No
--- NOTE | 2021-08-01 13:02 | PC.NURSE ---
Informed Md Alvarado pt roommate tested + for covid on rapid test. Awaiting orders.
[2021-08-01 14:00] VITALS: BP 127/57; PULSE 72; RESP 18; TEMP 36.8; O2SAT 99
[2021-08-01 16:17] LABS: Hematocrit 26.2 % (42.0-52.0); Hemoglobin 7.6 g/dL (14.0-18.0)
--- NOTE | 2021-08-01 16:30 | PM.IMPN ---
Progress Note: A&P Assessment and Plan (1) GI bleed: Code(s): K92.2 - Gastrointestinal hemorrhage, unspecified Status: Acute (2) Anemia: Code(s): D64.9 - Anemia, unspecified Status: Acute (3) Metabolic acidosis: Code(s): E87.2 - Acidosis Status: Acute (4) Hypokalemia: Code(s): E87.6 - Hypokalemia Status: Acute (5) Cirrhosis of liver: Code(s): K74.60 - Unspecified cirrhosis of liver Status: Acute (6) Diarrhea: Code(s): R19.7 - Diarrhea, unspecified Status: Acute (7) Left ureteral stone: Code(s): N20.1 - Calculus of ureter Status: Acute (8) Acute renal failure: Code(s): N17.9 - Acute kidney failure, unspecified Status: Acute (9) Acute UTI: Code(s): N39.0 - Urinary tract infection, site not specified Status: Acute (10) Kidney stone on left side: Code(s): N20.0 - Calculus of kidney Status: Acute (11) Schizophrenia: Code(s): F20.9 - Schizophrenia, unspecified Status: Acute Additional Plan Stool guaiac positive. He has microcytic anemia with probably iron deficiency. Metablic acidosis resolved. Potassium low but beter after replacement. Gave Mag as well. Replace phos today. Still having diarrhea yesterday but could be related to refeeding syndrome. Stool cultures returning negative. Left ureteral stone is very small. Discussed with urology who felt Braga could be removed. Currently on Rocephin for the Serratia UTI. GI consult for the guaic positive stolls and dropping HH. Will check serial HH. Continue Pepcid and Protonix. Stop IVF with bicarb. Follow lipase Subjective Date/time seen: 08/01/21 16:30 Interval history: 60yo male with schizophrenia, cirrhosis here for for weakness. Assuming care. Chart reviewed. Feels tired. Eating okay. No abd pain. No CP or SOB. No cough He is up walking in the room. Exam Narrative: AF 98.2 127/57 72 18 99% ra Gen - NARD Chest - few bibasilar rhonchi, nml RR CV - RRR S1/S2, occas extra beats Abd - Soft, NT/ND, Positive BS -Braga secured and draining clear yellow urine Ext - No pedal edema Psych - Nml mood and affect Skin - Warm and dry Objective Data Vital Signs Vital Signs: Vital Signs - 24 hr 07/31/21 21:19 08/01/21 06:00 08/01/21 08:00 Temperature 98.7 F 97.4 F L Pulse Rate 63 62 66 Respiratory Rate 14 14 14 Blood Pressure 129/55 L 114/52 L Pulse Oximetry 100 100 100 08/01/21 09:23 08/01/21 14:00 Temperature 98.2 F Pulse Rate 66 72 Respiratory Rate 18 Blood Pressure 127/57 L Pulse Oximetry 99 Intake/Output Intake/Output: Intake & Output 07/29/21 07/30/21 07/31/21 08/01/21 23:59 23:59 23:59 23:59 Intake Total 3040 4925 530 Output Total 2700 2625 Balance 340 2300 530 Meds/Results Medications: Active Medications Generic Name Dose Route Start Last Admin Trade Name Stefanie PRN Reason Stop Dose Admin Famotidine 40 mg 07/31/21 09:00 08/01/21 09:22 Famotidine 20 Mg Tablet PO 40 mg DAILY JANIE Administration Fluticasone Propionate 2 spray 07/31/21 09:00 08/01/21 09:23 Fluticasone Propionate 0.05% Na Spr 16 Gm Btl (*Bkc) NASAL 2 spray DAILY JANIE Administration Ceftriaxone Sodium/Dextrose 1 gm in 50 mls @ 100 mls/hr 07/31/21 04:00 08/01/21 05:30 Rocephin 1 Gm/D5w 50 Ml IVPB Infused Q24H JANIE Infusion Nadolol 20 mg 07/31/21 09:00 08/01/21 09:23 Nadolol 20 Mg Tablet PO 20 mg DAILY JANIE Administration Pantoprazole Sodium 40 mg 07/30/21 17:00 08/01/21 09:22 Pantoprazole 40 Mg Tablet PO 40 mg BID JANIE Administration Potassium Phos/Sodium Phos 1 packet 08/01/21 09:00 08/01/21 09:25 Potassium/Phosphorus/Sodium 1.5 Gm Packet PO 08/02/21 17:01 1 packet BID JANIE Administration Trazodone HCl 100 mg 07/30/21 21:00 07/31/21 22:07 Trazodone Hcl 50 Mg Tablet PO 100 mg HS JANIE Administration Radiology Results: ITS Impressions
[2021-08-01 16:43] LABS: Albumin Level 2.9 g/dL (3.5-5.1); Anion Gap 7 mmol/L (8-16); Blood Urea Nitrogen 14 mg/dL (9-20); Calcium 8.4 mg/dL (8.4-10.2); Carbon Dioxide 22 mmol/L (22-30); Chloride 105 mmol/L (98-107); Estimated CRCL calculation 73 ml/min; Estimated Glomerular Filt Rate > 60; Glucose 137 mg/dL (65-110); Potassium 3.9 mmol/L (3.4-5.0); Sodium 134 mmol/L (137-145)
[2021-08-01 19:47] LABS: Hematocrit 29.8 % (42.0-52.0); Hemoglobin 8.6 g/dL (14.0-18.0)
[2021-08-01 22:00] VITALS: BP 134/58; PULSE 65; RESP 16; TEMP 36.6; O2SAT 100
[2021-08-01] MEDS: traZODone HCL 50 MG TABLET 100 MG PO (22:00)
[2021-08-02 06:00] VITALS: BP 134/54; PULSE 62; RESP 20; TEMP 36.5; O2SAT 100
[2021-08-02 07:34] LABS: Basophils Percent Auto 0.6 % (0.2-1.2); Eosinophils Absolute Auto 0.1 K/mm3 (0-0.3); Eosinophils Percent Auto 1.5 % (0-4.4); Hematocrit 26.4 % (42.0-52.0); Hemoglobin 7.7 g/dL (14.0-18.0); Immature Granulocyte Absolute 0.02 K/mm3 (0.00-0.031); Immature Granulocyte Percent A 0.4 % (0-0.5); Immature Platelet Fraction Pct 7.4 % (0.9-11.2); Lymphocytes Absolute Auto 1.46 K/mm3 (0.9-3.2); Lymphocytes Percent Auto 26.9 % (18.3-44.2); Mean Corpuscular HGB Conc 29.2 g/dl (32-36); Mean Corpuscular Hemoglobin 20.8 pg (26-34); Mean Corpuscular Volume 71.4 fl (80-100); Mean Platelet Volume 10.7 fl (7.4-10.4); Monocytes Absolute Auto 0.6 K/mm3 (0.1-0.6); Monocytes Percent Auto 10.3 % (2.6-8.5); Neutrophils Absolute Auto 3.3 K/mm3 (1.3-6.7); Neutrophils Percent Auto 60.3 % (45.5-73.1); Platelet Count Result 162 k/mm3 (150-375); Red Cell Distribution Width 21.6 % (11.5-14.5); White Blood Count 5.4 K/mm3 (4.5-10.0)
[2021-08-02 07:52] LABS: Alanine Aminotransferase 42 U/L (4-50); Albumin Level 3.1 g/dL (3.5-5.1); Alkaline Phosphatase 91 U/L (38-126); Anion Gap 5 mmol/L (8-16); Aspartate Amino Transferase 73 U/L (17-59); Bilirubin,Total 0.4 mg/dL (0.2-1.3); Blood Urea Nitrogen 8 mg/dL (9-20); Calcium 8.7 mg/dL (8.4-10.2); Carbon Dioxide 23 mmol/L (22-30); Chloride 106 mmol/L (98-107); Estimated CRCL calculation 101 ml/min; Estimated Glomerular Filt Rate > 60; Glucose 139 mg/dL (65-110); Lipase 631 U/L (23-300); Magnesium 1.8 mg/dL (1.6-2.3); Phosphorus 1.1 mg/dL (2.5-4.5); Potassium 3.4 mmol/L (3.4-5.0); Sodium 134 mmol/L (137-145)
[2021-08-02 08:10] LABS: Hypochromasia 2+ (NORMAL); Macrocytosis 1+ (NORMAL); Ovalocytes 1+ (NORMAL); Platelet Estimate Adequate (Adequate)
[2021-08-02] MEDS: FAMOTIDINE 20 MG TABLET 40 MG PO (08:11)
[2021-08-02] MEDS: PANTOPRAZOLE 40 MG TABLET PO ×2 (08:11→17:02)
[2021-08-02] MEDS: POTASSIUM/PHOSPHORUS/SODIUM 1.5 GM PACKET 1 PACKET PO ×2 (08:11→17:02)
[2021-08-02 08:12] VITALS: PULSE 66
[2021-08-02] MEDS: nadoloL 20 MG TABLET PO (08:12)
[2021-08-02] MEDS: FLUTICASONE PROPIONATE 0.05% NA SPR 16 GM BTL (*BKC) 2 SPRAY NASAL (08:12)
--- NOTE | 2021-08-02 10:39 | WPDGICN ---
Assessment and Plan Assessment and plan (1) Anemia: Code(s): D64.9 - Anemia, unspecified Status: Acute Assessment and Plan: Patient with microcytic anemia and apparent iron deficiency anemia. Etiology unclear no active bleeding described but stool hemoccults reported be positive. Patient denies having any testing on his stools. Would recommend colonoscopy an EGD be performed next week to assess for etiology of anemia. Continue monitor hemoglobin in the antrum. (2) Occult blood in stools: Code(s): R19.5 - Other fecal abnormalities Status: Acute Assessment and Plan: Occult blood in the stools identified. Will plan to evaluate which GI endoscopy early next week. (3) Acute UTI: Code(s): N39.0 - Urinary tract infection, site not specified Status: Acute (4) Schizophrenia: Code(s): F20.9 - Schizophrenia, unspecified Status: Acute (5) Cirrhosis of liver: Code(s): K74.60 - Unspecified cirrhosis of liver Status: Acute Assessment and Plan: Cirrhosis of the liver described on imaging. Patient is unaware of this diagnosis. Will obtain some lab studies to search for potential etiologies. GI Consult Note Consult date/time: 08/02/21 10:39 HPI: Loy Cartwright is a 60 year old male I am asked to see because of anemia and occult blood in stool. Patient has a history of schizophrenia. Presented to the emergency room because of weakness. Patient was found to have a urinary tract infection and microcytic anemia. Patient denies any obvious blood in his stools. Denies any hematemesis, nor abdominal pain. Imaging suggests that he may have underlying cirrhosis of the liver. He has been worked up in the past for ureteral calculus. He has a history of surgical therapy for diverticulitis complicated by colovesical fistula. Review of Systems Review of Systems: All systems reviewed & are unremarkable except as noted in HPI and below PMFSH Past Medical History Medical History (Updated 08/02/21 @ 10:41 by Chuy Blancas MD) Cirrhosis of liver Diarrhea Metabolic acidosis Schizophrenia Family History Family History Sibling Family history of malignant neoplasm Father Family history of lung cancer Mother Family history of congestive heart failure Other Hypertension Social History Social History Smoking packs per day: 0.5 Smoking cigarettes per day: 10.0 Years smoked: 41 Smoking pack-years: 20.50 Smoking status: Current every day smoker Tobacco type: cigarettes Alcohol intake: current Drinks per week: 7 Substance use: current Substance use type: marijuana Last use: 07/28/21 Spiritual care concerns: No Meds Home Medications and Allergies Home Medications Medication Instructions Recorded Confirmed Type famotidine 40 mg PO DAILY 07/30/21 07/30/21 History fluticasone propionate 50 mcg INTRANASAL DAILY 07/30/21 07/30/21 History furosemide 20 mg PO DAILY 07/30/21 07/30/21 History nadolol 20 mg PO DAILY 07/30/21 07/30/21 History pantoprazole 40 mg PO BID 07/30/21 07/30/21 History spironolactone 50 mg PO DAILY 07/30/21 07/30/21 History trazodone 100 mg PO HS 07/30/21 07/30/21 History Allergies Allergy/AdvReac Type Severity Reaction Status Date / Time iodine Allergy Unknown Unknown Verified 07/30/21 03:24 Contrast Media Allergy Mild Hives / Uncoded 07/30/21 03:24 Red Face Vital Signs Vital Signs - 24 hr 08/01/21 14:00 08/01/21 22:00 08/02/21 06:00 Temperature 98.2 F 97.9 F 97.7 F Pulse Rate 72 65 62 Respiratory Rate 18 16 20 Blood Pressure 127/57 L 134/58 L 134/54 L Pulse Oximetry 99 100 100 08/02/21 08:12 Temperature Pulse Rate 66 Respiratory Rate Blood Pressure Pulse Oximetry Exam Narrative: Physical exam reveals patient be alert. Vital signs are stab
[2021-08-02 14:00] VITALS: BP 133/51; PULSE 78; RESP 16; TEMP 36.8; O2SAT 100
--- NOTE | 2021-08-02 15:27 | PM.IMPN ---
Progress Note: A&P Assessment and Plan (1) Metabolic acidosis: Code(s): E87.2 - Acidosis Status: Acute (2) Cirrhosis of liver: Code(s): K74.60 - Unspecified cirrhosis of liver Status: Acute (3) Diarrhea: Code(s): R19.7 - Diarrhea, unspecified Status: Acute (4) Left ureteral stone: Code(s): N20.1 - Calculus of ureter Status: Acute (5) Acute renal failure: Code(s): N17.9 - Acute kidney failure, unspecified Status: Acute (6) Acute UTI: Code(s): N39.0 - Urinary tract infection, site not specified Status: Acute (7) Kidney stone on left side: Code(s): N20.0 - Calculus of kidney Status: Acute (8) Schizophrenia: Code(s): F20.9 - Schizophrenia, unspecified Status: Acute (9) Hypokalemia: Code(s): E87.6 - Hypokalemia Status: Acute Additional Plan # Acute renal failure baseline creatinine 1 no history of chronic a kidney disease in the past. Likely prerenal/ATN underlying UTI as well. On IV fluid resuscitation. Renal following. CK is normal lipase is elevated at 694. Admission creatinine of 5.8 with IV hydration down to 1.6 dramatic improvement. Likely due to dehydration with ongoing diarrhea. Renal function is back to normal # UTI on ceftriaxone follow urine culture urine culture with Serratia marcescens. continue ceftriaxone # metabolic acidosis due to renal failure on bicarb drip improving on bicarb drip IV fluid has been stopped now metabolic acidosis is resolved # diarrhea since a month will order stool studies await stool studies. stool study has been negative. GI has been on board and may benefit from colonoscopy evaluation # Mild anemia active signs of bleeding continue to monitor H&H is dropped quite a bit today no obvious signs of bleeding. He is on PPI. Maybe hemodilution. FOBT did come back positive GI has been consulted PPI has been placed is planned for EGD and colonoscopy next week. 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 Assuming care. Chart reviewed. Feels tired. Eating okay. No abd pain. No CP or SOB. No cough He is up walking in the room. 08/02/2021 H&H dropped with FOBT positive GI saw plan for EGD colonoscopy next week.Reports his right scrotum is swollen but not painful since the catheter has been removed. Review of Systems Review of Systems: All systems reviewed & are unremarkable except as noted in HPI and below Exam Narrative: Gen - NARD Chest - few bibasilar rhonchi, nml RR CV - RRR S1/S2, occas extra beats Abd - Soft, NT/ND, Positive BS -Braga secured and draining clear yellow urine Ext - No pedal edema Psych - Nml mood and affect Skin - Warm and dry Genital right scrotum swollen edematous nontender Objective Data Vital Signs Vital Signs: Vital Signs - 24 hr 08/01/21 22:00 08/02/21 06:00 08/02/21 08:12 Temperature 97.9 F 97.7 F Pulse Rate 65 62 66 Respiratory Rate 16 20 Blood Pressure 134/58 L 134/54 L Pulse Oximetry 100 100 08/02/21 14:00 Temperature 98.3 F Pulse Rate 78 Respiratory Rate 16 Blood Pressure 133/51 L Pulse Oximetry 100 Intake/Output Intake/Output: Intake & Output 07/30/21 07/31/21 08/01/21 08/02/21 23:59 23:59 23:59 23:59 Intake Total 3040 4925 1640 1370 Output Total 2700 2625 2000 300 Balance 340 2300 -360 1070 Meds/Results
[2021-08-02 20:00] VITALS: PULSE 68; RESP 16; O2SAT 100
[2021-08-02] MEDS: traZODone HCL 50 MG TABLET 100 MG PO (20:17)
[2021-08-02 21:48] VITALS: BP 122/54; PULSE 68; RESP 16; TEMP 36.6; O2SAT 100
[2021-08-03 05:39] VITALS: BP 150/65; PULSE 88; RESP 16; TEMP 36.3; O2SAT 94
[2021-08-03 08:00] VITALS: PULSE 88; RESP 16; O2SAT 94
[2021-08-03 08:02] LABS: Basophils Percent Auto 0.4 % (0.2-1.2); Eosinophils Absolute Auto 0.1 K/mm3 (0-0.3); Eosinophils Percent Auto 1.7 % (0-4.4); Hematocrit 25.9 % (42.0-52.0); Hemoglobin 7.6 g/dL (14.0-18.0); Immature Granulocyte Absolute 0.02 K/mm3 (0.00-0.031); Immature Granulocyte Percent A 0.4 % (0-0.5); Immature Platelet Fraction Pct 7.1 % (0.9-11.2); Lymphocytes Absolute Auto 1.34 K/mm3 (0.9-3.2); Lymphocytes Percent Auto 25.3 % (18.3-44.2); Mean Corpuscular HGB Conc 29.3 g/dl (32-36); Mean Corpuscular Hemoglobin 21.2 pg (26-34); Mean Corpuscular Volume 72.1 fl (80-100); Mean Platelet Volume 11.9 fl (7.4-10.4); Monocytes Absolute Auto 0.6 K/mm3 (0.1-0.6); Monocytes Percent Auto 12.1 % (2.6-8.5); Neutrophils Absolute Auto 3.2 K/mm3 (1.3-6.7); Neutrophils Percent Auto 60.1 % (45.5-73.1); Platelet Count Result 158 k/mm3 (150-375); Red Blood Count 3.59 M/mm3 (4.6-6.20); Red Cell Distribution Width 21.8 % (11.5-14.5); White Blood Count 5.3 K/mm3 (4.5-10.0)
[2021-08-03 08:03] LABS: Alanine Aminotransferase 41 U/L (4-50); Albumin Level 3.1 g/dL (3.5-5.1); Alkaline Phosphatase 96 U/L (38-126); Anion Gap 6 mmol/L (8-16); Aspartate Amino Transferase 52 U/L (17-59); Bilirubin,Total 0.4 mg/dL (0.2-1.3); Blood Urea Nitrogen 5 mg/dL (9-20); Calcium 8.2 mg/dL (8.4-10.2); Carbon Dioxide 22 mmol/L (22-30); Chloride 106 mmol/L (98-107); Estimated CRCL calculation 116 ml/min; Estimated Glomerular Filt Rate > 60; Glucose 99 mg/dL (65-110); Potassium 3.3 mmol/L (3.4-5.0); Sodium 134 mmol/L (137-145)
[2021-08-03 08:28] VITALS: PULSE 88
[2021-08-03] MEDS: nadoloL 20 MG TABLET PO (08:28)
[2021-08-03] MEDS: FAMOTIDINE 20 MG TABLET 40 MG PO (08:28)
[2021-08-03] MEDS: PANTOPRAZOLE 40 MG TABLET PO ×2 (08:28→16:40)
[2021-08-03] MEDS: FLUTICASONE PROPIONATE 0.05% NA SPR 16 GM BTL (*BKC) 2 SPRAY NASAL (08:28)
--- NOTE | 2021-08-03 09:38 | WPDGIPROGNO ---
Progress Note: A&P Assessment and Plan (1) Occult blood in stools: Code(s): R19.5 - Other fecal abnormalities Status: Acute (2) Anemia: Code(s): D64.9 - Anemia, unspecified Status: Acute Assessment and Plan: Patient with microcytic anemia. Occult blood in stool identified. Suspicious for chronic GI blood loss. Significant change in hemoglobin compared to recent hospital stays. Plan to proceed with colonoscopy an EGD Wednesday morning after preparation today. (3) Cirrhosis of liver: Code(s): K74.60 - Unspecified cirrhosis of liver Status: Acute Assessment and Plan: Cirrhosis of the liver suggested by imaging. Patient does have a have Street of a alcohol intake this likely etiology for this. (4) Schizophrenia: Code(s): F20.9 - Schizophrenia, unspecified Status: Acute Subjective Date/time seen: 08/03/21 09:38 patient alert and ambulating in the room today. Admitted with weakness appears stronger. Found to have profound microcytic anemia. No signs of bleeding described. Review of Systems Review of Systems: All systems reviewed & are unremarkable except as noted in HPI and below Exam Narrative: On exam put vital signs are stable. HEENT exam reveals no icterus. Lungs are clear. Heart without murmur. Abdomen soft nontender with no organomegaly. Objective Data Vital Signs Vital Signs: Vital Signs - 24 hr 08/02/21 14:00 08/02/21 20:00 08/02/21 21:48 Temperature 98.3 F 97.8 F Pulse Rate 78 68 68 Respiratory Rate 16 16 16 Blood Pressure 133/51 L 122/54 L Pulse Oximetry 100 100 100 08/03/21 05:39 08/03/21 08:28 Temperature 97.4 F L Pulse Rate 88 88 Respiratory Rate 16 Blood Pressure 150/65 H Pulse Oximetry 94 Intake/Output Intake/Output: Intake & Output 07/31/21 08/01/21 08/02/21 08/03/21 23:59 23:59 23:59 23:59 Intake Total 4925 1640 2610 1500 Output Total 2625 2000 300 Balance 2300 -360 2310 1500 Meds/Results Medications: Active Medications Generic Name Dose Route Start Last Admin Trade Name Freq PRN Reason Stop Dose Admin Famotidine 40 mg 07/31/21 09:00 08/03/21 08:28 Famotidine 20 Mg Tablet PO 40 mg DAILY JANIE Administration Fluticasone Propionate 2 spray 07/31/21 09:00 08/03/21 08:28 Fluticasone Propionate 0.05% Na Spr 16 Gm Btl (*Bkc) NASAL 2 spray DAILY JANIE Administration Ceftriaxone Sodium/Dextrose 1 gm in 50 mls @ 100 mls/hr 07/31/21 04:00 08/03/21 05:14 Rocephin 1 Gm/D5w 50 Ml IVPB 100 mls/hr Q24H JANIE Administration Nadolol 20 mg 07/31/21 09:00 08/03/21 08:28 Nadolol 20 Mg Tablet PO 20 mg DAILY JANIE Administration Pantoprazole Sodium 40 mg 07/30/21 17:00 08/03/21 08:28 Pantoprazole 40 Mg Tablet PO 40 mg BID JANIE Administration Trazodone HCl 100 mg 07/30/21 21:00 08/02/21 20:17 Trazodone Hcl 50 Mg Tablet PO 100 mg HS JANIE Administration Radiology Results: ITS Impressions Abdomen X-Ray 07/30/21 06:49 IMPRESSION: Can't confidently identify nephrolithiasis or left ureteral stone. Chest X-Ray 07/30/21 08:01 IMPRESSION: No acute cardiopulmonary findings. Abdomen/Pelvis CT 07/30/21 08:14 IMPRESSION: 1. 2 mm stone in distal left ureter. No hydronephrosis. 2. Small bilateral nonobstructing kidney stones. 3. Supraumbilical ventral hernia containing fat. Left inguinal hernia containing fat. 4. Cirrhosis of the liver. 5. Cholelithiasis. Labs Labs: Laboratory Results - last 24 hr 08/03/21 07:18 Sodium 134 L Potassium 3.3 L Chloride 106 Carbon Dioxide 22 Anion Gap 6 L BUN 5 L Creatinine 0.60 L Estim Creat Clear Calc 116 Estimated GFR > 60 Glucose 99 Calcium 8.2 L Total Bilirubin 0.4 AST 52 ALT 41 Alkaline Phosphatase 96 Total Protein 6.0 L Albumin 3.1 L Amg Follow-up Billing Inpatient Follow-up [id number] [facility]
--- NOTE | 2021-08-03 10:04 | PC.NURSE ---
Called Md Momin reported Na 134 and K 3.3, pt planning to be prepped for colonscopy Wednesday08/04/21. Inquiring about electrolyte replacement seen pt will be receiving bowel prep and electrolyte may continue to drop. Awaiting call back.
--- NOTE | 2021-08-03 10:09 | PC.NURSE ---
N.o 40 meq PO once ordered.
[2021-08-03] MEDS: PEG (High)/E-LYTE SOLN 4,000 ML BTL 4000 ML PO (11:00)
[2021-08-03] MEDS: POTASSIUM CHLORIDE 20 MEQ TABLET 40 MEQ PO (11:00)
[2021-08-03 11:21] LABS: Platelet Estimate Adequate (Adequate)
[2021-08-03 11:22] LABS: Anisocytosis 1+ (NORMAL); Hypochromasia 1+ (NORMAL); Microcytosis 1+ (NORMAL)
[2021-08-03 13:06] LABS: IFOB Positive Control Positive; Immunochemical Fecal Occult Bl Positive (N)
[2021-08-03 14:00] VITALS: BP 151/75; PULSE 70; RESP 20; TEMP 36.6; O2SAT 100
--- NOTE | 2021-08-03 14:18 | PC.NURSE ---
Zaina Alcala pt sister stated pt gets confused with narotic pain medication and to avoid using if necessary.
--- NOTE | 2021-08-03 15:06 | PC.NURSE ---
consent obtain for colonoscopy and EGD for today, via telephone x2 nurse witness from Zaina Alcala, pt sister.
--- NOTE | 2021-08-03 17:42 | PM.IMPN ---
Progress Note: A&P Assessment and Plan (1) Metabolic acidosis: Code(s): E87.2 - Acidosis Status: Acute (2) Cirrhosis of liver: Code(s): K74.60 - Unspecified cirrhosis of liver Status: Acute (3) Diarrhea: Code(s): R19.7 - Diarrhea, unspecified Status: Acute (4) Left ureteral stone: Code(s): N20.1 - Calculus of ureter Status: Acute (5) Acute renal failure: Code(s): N17.9 - Acute kidney failure, unspecified Status: Acute (6) Acute UTI: Code(s): N39.0 - Urinary tract infection, site not specified Status: Acute (7) Kidney stone on left side: Code(s): N20.0 - Calculus of kidney Status: Acute (8) Schizophrenia: Code(s): F20.9 - Schizophrenia, unspecified Status: Acute (9) Hypokalemia: Code(s): E87.6 - Hypokalemia Status: Acute Additional Plan # Acute renal failure baseline creatinine 1 no history of chronic a kidney disease in the past. Likely prerenal/ATN underlying UTI as well. On IV fluid resuscitation. Renal following. CK is normal lipase is elevated at 694. Admission creatinine of 5.8 with IV hydration down to 1.6 dramatic improvement. Likely due to dehydration with ongoing diarrhea. Renal function is back to normal # UTI on ceftriaxone follow urine culture urine culture with Serratia marcescens. continue ceftriaxone # metabolic acidosis due to renal failure on bicarb drip improving on bicarb drip IV fluid has been stopped now metabolic acidosis is resolved # diarrhea since a month will order stool studies await stool studies. stool study has been negative. GI has been on board and may benefit from colonoscopy evaluation EGD and colonoscopy tomorrow # Mild anemia active signs of bleeding continue to monitor H&H is dropped quite a bit today no obvious signs of bleeding. He is on PPI. Maybe hemodilution. FOBT did come back positive GI has been consulted PPI has been placed is planned for EGD and colonoscopy next week. H&H min stable does not require transfusion Plan for EGD colonoscopy tomorrow # left kidney stone/distal left ureter stone urology following # cirrhosis of liver alcohol-related follows liver specialist at [facility] # history of diverticulosis # history of diverticulitis with colovesical fistula in the past # bladder tumor status post resection # tobacco use # alcoholism # diffuse osteoarthritis # schizophrenia # DVT prophylaxis #Right scrotal swelling nontender will watch for now as he refuses any other testing at this time # code status: Full code Subjective Date/time seen: 08/03/21 17:42 Interval history: 60yo male with schizophrenia, cirrhosis here for for weakness. Assuming care. Chart reviewed. Feels tired. Eating okay. No abd pain. No CP or SOB. No cough He is up walking in the room. 08/02/2021 H&H dropped with FOBT positive GI saw plan for EGD colonoscopy next week.Reports his right scrotum is swollen but not painful since the catheter has been removed. 08/03/2021 H&H remains stable. He is going through a bowel prep for planned EGD and colonoscopy tomorrow. Right scrotum is still swollen. Denies any pain in the area. No fever chills vitals has been stable. Review of Systems Review of Systems: All systems reviewed & are unremarkable except as noted in HPI and below Exam Narrative: Gen - NARD Chest - few bibasilar rhonchi, nml RR CV - RRR S1/S2, occas extra beats Abd - Soft, NT/ND, Positive BS -Braga secured and draining clear yellow urine Ext - No pedal edema Psych - Nml mood and affect Skin - Warm and dry Genital right scrotum swollen edematous nontender Objective Data Vital Signs Vital Signs: Vital Signs - 24 hr 08/02/21 20:00 08/02/21 21:48 08/03/21 05:39 Temperature 97.8 F 97.4 F L Pulse Rate 68 68 88 Respiratory Rate 16 16 16 Blood Pressure 122/54 L 150/65 H Pulse Oximetry 100 100 94 08/03/21 08:00 08/03/21 08:28 08/03/21 14:00 Temperature
[2021-08-03 20:00] VITALS: RESP 20; O2SAT 100
[2021-08-03] MEDS: traZODone HCL 50 MG TABLET 100 MG PO (21:03)
[2021-08-03 22:00] VITALS: BP 144/67; PULSE 83; RESP 18; TEMP 37.9; O2SAT 100
[2021-08-04] VITALS (11 sets, daily range): BP systolic 86–149; BP diastolic 43–70; PULSE 67–93; RESP 14–34; TEMP 36.2–38.2; O2SAT 98–100
[2021-08-04 08:01] LABS: Basophils Percent Auto 0.4 % (0.2-1.2); Eosinophils Absolute Auto 0.1 K/mm3 (0-0.3); Eosinophils Percent Auto 1.4 % (0-4.4); Hematocrit 24.1 % (42.0-52.0); Hemoglobin 7.2 g/dL (14.0-18.0); Immature Granulocyte Absolute 0.02 K/mm3 (0.00-0.031); Immature Granulocyte Percent A 0.4 % (0-0.5); Immature Platelet Fraction Pct 7.8 % (0.9-11.2); Lymphocytes Absolute Auto 1.37 K/mm3 (0.9-3.2); Lymphocytes Percent Auto 26.9 % (18.3-44.2); Mean Corpuscular HGB Conc 29.9 g/dl (32-36); Mean Corpuscular Hemoglobin 21.9 pg (26-34); Mean Corpuscular Volume 73.3 fl (80-100); Mean Platelet Volume 11.5 fl (7.4-10.4); Monocytes Absolute Auto 0.6 K/mm3 (0.1-0.6); Monocytes Percent Auto 11.6 % (2.6-8.5); Neutrophils Percent Auto 59.3 % (45.5-73.1); Platelet Count Result 177 k/mm3 (150-375); Red Blood Count 3.29 M/mm3 (4.6-6.20); Red Cell Distribution Width 22.4 % (11.5-14.5); White Blood Count 5.1 K/mm3 (4.5-10.0)
[2021-08-04 08:11] LABS: Anion Gap 5 mmol/L (8-16); Blood Urea Nitrogen 4 mg/dL (9-20); Calcium 8.6 mg/dL (8.4-10.2); Carbon Dioxide 21 mmol/L (22-30); Chloride 107 mmol/L (98-107); Estimated CRCL calculation 101 ml/min; Estimated Glomerular Filt Rate > 60; Glucose 98 mg/dL (65-110); Potassium 3.7 mmol/L (3.4-5.0); Sodium 133 mmol/L (137-145)
[2021-08-04 08:34] LABS: Ovalocytes 1+ (NORMAL); Platelet Estimate Adequate (Adequate)
[2021-08-04 08:35] LABS: Anisocytosis 2+ (NORMAL); Target Cells 1+ (NORMAL)
--- NOTE | 2021-08-04 09:24 | PC.NURSE ---
Report given to gi lab, procedure scheduled for 11am.
--- NOTE | 2021-08-04 10:15 | PCPTNOTE ---
The patient treatment was not able to be completed this A.M. due to patient going to GI Lab. Will plan to continue treatment per plan of care.
--- NOTE | 2021-08-04 10:44 | WPDANESEPPF ---
Anes - Initial Pre Proc Eval Procedure: Operation Date: 08/04/21 12:30 Proposed Procedures p Esophagogastroduodenoscopy & Colonoscopy - Chuy Blancas MD Date/Time: 08/04/21 10:44 Surgeon: Miroslava Wiseman DO Pre Op Diagnosis: Acute Renal Failure,UTIl,Left Kidney Stone Patient Data Age: 60 Gender: M Height: 1.78 m Weight: 73.5 kg Last Vital Signs Temp 38.2 C H 08/04/21 05:37 Pulse 93 08/04/21 07:17 Resp 16 08/04/21 07:17 BP 127/60 08/04/21 05:37 Pulse Ox 98 08/04/21 07:17 Allergies Allergy/AdvReac Type Severity Reaction Status Date / Time iodine Allergy Unknown Unknown Verified 08/04/21 10:46 Contrast Media Allergy Mild Hives / Uncoded 07/30/21 03:24 Red Face Home Medications Medication Instructions Recorded Confirmed Type famotidine 40 mg PO DAILY 07/30/21 07/30/21 History fluticasone propionate 50 mcg INTRANASAL DAILY 07/30/21 07/30/21 History furosemide 20 mg PO DAILY 07/30/21 07/30/21 History nadolol 20 mg PO DAILY 07/30/21 07/30/21 History pantoprazole 40 mg PO BID 07/30/21 07/30/21 History spironolactone 50 mg PO DAILY 07/30/21 07/30/21 History trazodone 100 mg PO HS 07/30/21 07/30/21 History Laboratory Tests 08/03/21 08/03/21 08/04/21 07:07 07:18 07:47 WBC 5.3 K/mm3 K/mm3 5.1 K/mm3 K/mm3 (4.5-10.0) (4.5-10.0) RBC 3.59 M/mm3 L M/mm3 3.29 M/mm3 L M/mm3 (4.6-6.20) (4.6-6.20) Hgb 7.6 g/dL L g/dL 7.2 g/dL L g/dL (14.0-18.0) (14.0-18.0) Hct 25.9 % L % 24.1 % L % (42.0-52.0) (42.0-52.0) MCV 72.1 fl L fl 73.3 fl L fl (80-100) (80-100) MCH 21.2 pg L pg 21.9 pg L pg (26-34) (26-34) MCHC 29.3 g/dl L g/dl 29.9 g/dl L g/dl (32-36) (32-36) RDW 21.8 % H % 22.4 % H % (11.5-14.5) (11.5-14.5) Plt Count 158 k/mm3 k/mm3 177 k/mm3 k/mm3 (150-375) (150-375) MPV 11.9 fl H fl 11.5 fl H fl (7.4-10.4) (7.4-10.4) Immature Gran % (Auto) 0.4 % % 0.4 % % (0-0.5) (0-0.5) Neut % (Auto) 60.1 % % 59.3 % % (45.5-73.1) (45.5-73.1) Lymph % (Auto) 25.3 % % 26.9 % % (18.3-44.2) (18.3-44.2) [place] % (Auto) 12.1 % H % 11.6 % H % (2.6-8.5) (2.6-8.5) Eos % (Auto) 1.7 % % 1.4 % % (0-4.4) (0-4.4) Baso % (Auto) 0.4 % % 0.4 % % (0.2-1.2) (0.2-1.2) Lymph # (Auto) 1.34 K/mm3 K/mm3 1.37 K/mm3 K/mm3 (0.9-3.2) (0.9-3.2) Sp[place] # (Auto) 0.6 K/mm3 K/mm3 0.6 K/mm3 K/mm3 (0.1-0.6) (0.1-0.6) Eos # (Auto) 0.1 K/mm3 K/mm3 0.1 K/mm3 K/mm3 (0-0.3) (0-0.3) Baso # (Auto) 0.0 K/mm3 K/mm3 0.0 K/mm3 K/mm3 (0.0-0.1) (0.0-0.1) Abs Immat Gran (auto) 0.02 K/mm3 K/mm3 0.02 K/mm3 K/mm3 (0.00-0.031) (0.00-0.031) Absolute Neuts (auto) 3.2 K/mm3 K/mm3 3.0 K/mm3 K/mm3 (1.3-6.7) (1.3-6.7) Absolute Nucleated RBC 0.0 K/mm3 K/mm3 0.0 K/mm3 K/mm3 (0.0-0.012) (0.0-0.012) Nucleated RBC % 0.0 % % 0.0 % % (0.0-0.2) (0.0-0.2) Platelet Estimate Adequate Adequate (Adequate) (Adequate) % Immature Plt Fraction 7.1 % % 7.8 % % (0.9-11.2) (0.9-11.2) Hypochromasia 1+ (NORMAL) Anisocytosis 1+ 2+ (NORMAL) (NORMAL) Microcytosis 1+ (NORMAL) Target Cells 1+ (NORMAL) Ovalocytes 1+ (NORMAL) Sodium Potassium Chloride Carbon Dioxide Anion Gap BUN Creatinine Estim Creat Clear Calc Estimated GFR Glucose Calcium Stl Occult Blood (IFOB) Positive H (N) 08/04/21 07:47 WBC RBC Hgb Hct MCV MCH MCHC RDW Plt Count MPV Immature Gran % (Auto) Neut % (Auto) Lymph % (Auto) [place] % (Auto) Eos % (Auto) Baso % (Auto) Lymph # (Auto) [place]ding # (Auto) Eos # (
[2021-08-04] MEDS: LACTATED RINGERS 1,000 ML 150 ML IV CONT ×2 (10:53→17:06)
--- NOTE | 2021-08-04 11:36 | SUR.OPER ---
EGD ENDED 1126, COLONOSCOPY STARTED 1135
--- NOTE | 2021-08-04 11:47 | SUR.PHASEII ---
Bren CLEARY RN called report to ten Gary RN
--- NOTE | 2021-08-04 11:48 | PC.NURSE ---
Endoscopy called pt has pyloric ulcer and unable to perform colonoscopy due to poor prep. Colonoscopy rescheduled for tomorrow.
--- NOTE | 2021-08-04 12:18 | PC.NURSE ---
Pharmacy requesting clarification for magnesium citrate scheduled time. Time clarified with MD Blancas, scheduled for 5am 08/05/21.
[2021-08-04] MEDS: PANTOPRAZOLE 40 MG TABLET PO ×2 (12:47→17:06)
[2021-08-04] MEDS: FLUTICASONE PROPIONATE 0.05% NA SPR 16 GM BTL (*BKC) 2 SPRAY NASAL (12:47)
[2021-08-04] MEDS: FAMOTIDINE 20 MG TABLET 40 MG PO (12:47)
--- NOTE | 2021-08-04 13:21 | PCNFU ---
Nutrition Follow-Up Complete: Inadequate oral intake related to acute renal failure as evidenced by NPO diet order and decreased appetite for 2 weeks. Goal: Patient to meet estimated nutritional needs Patient is progressing towards goal. No new goal at this time. Pt current nutrition is clear liquid diet order. Last recorded weight is 73.5 kg. Recommend re-weighing pt. prior to discharge. Bowel Motility: + BM 08/04/2021 Labs Reviewed: Hgb 7.2, Hct 24.1, Na 133, BUN 4 Meds Noted: Pepcid, Protonix, Desyrel, Corgard Skin: No skin breakdown at this time. WNL. Additional Notes: Diet advanced from NPO to clear liquids due to colonoscopy this morning 08/04/2021. Prior to procedure pt. was eating 100% of meals ordered. Monitor pt. labs, medications, weight and oral intake every 5 days.
[2021-08-04] MEDS: PEG (High)/E-LYTE SOLN 4,000 ML BTL 4000 ML PO (14:07)
--- NOTE | 2021-08-04 14:07 | PC.NURSE ---
Bowel prep started this shift, pt refusing to drink. MD Ziegler informed. MD Blancas informed.
--- NOTE | 2021-08-04 14:19 | PCPTNOTE ---
Patient refused PT this afternoon. Patient states he just returned from testing and will have mores testing tomorrow. Patient states I just want to relax. Educated patient in the importance of participating in therapy to improve strength, endurance, and mobility. Patient continued to decline. PT will continue to follow per plan of care.
--- NOTE | 2021-08-04 15:25 | PM.IMPN ---
Progress Note: A&P Assessment and Plan (1) Metabolic acidosis: Code(s): E87.2 - Acidosis Status: Acute (2) Cirrhosis of liver: Code(s): K74.60 - Unspecified cirrhosis of liver Status: Acute (3) Diarrhea: Code(s): R19.7 - Diarrhea, unspecified Status: Acute (4) Left ureteral stone: Code(s): N20.1 - Calculus of ureter Status: Acute (5) Acute renal failure: Code(s): N17.9 - Acute kidney failure, unspecified Status: Acute (6) Acute UTI: Code(s): N39.0 - Urinary tract infection, site not specified Status: Acute (7) Kidney stone on left side: Code(s): N20.0 - Calculus of kidney Status: Acute (8) Schizophrenia: Code(s): F20.9 - Schizophrenia, unspecified Status: Acute (9) Hypokalemia: Code(s): E87.6 - Hypokalemia Status: Acute Additional Plan # Acute renal failure baseline creatinine 1 no history of chronic a kidney disease in the past. Likely prerenal/ATN underlying UTI as well. On IV fluid resuscitation. Renal following. CK is normal lipase is elevated at 694. Admission creatinine of 5.8 with IV hydration down to 1.6 dramatic improvement. Likely due to dehydration with ongoing diarrhea. Renal function is back to normal # UTI on ceftriaxone follow urine culture urine culture with Serratia marcescens. continue ceftriaxone # metabolic acidosis due to renal failure on bicarb drip improving on bicarb drip IV fluid has been stopped now metabolic acidosis is resolved # diarrhea since a month will order stool studies await stool studies. stool study has been negative. GI has been on board and may benefit from colonoscopy evaluation # Mild anemia active signs of bleeding continue to monitor H&H is dropped quite a bit today no obvious signs of bleeding. He is on PPI. Maybe hemodilution. FOBT did come back positive GI has been consulted PPI has been placed is planned for EGD and colonoscopy next week. H&H min stable does not require transfusion EGD and colonoscopy report as noted below EGD with pyloric ulcer Colonoscopy poor prep Colonoscopy planned again tomorrow # left kidney stone/distal left ureter stone urology following # cirrhosis of liver alcohol-related follows liver specialist at [place] # history of diverticulosis # history of diverticulitis with colovesical fistula in the past # bladder tumor status post resection # tobacco use # alcoholism # diffuse osteoarthritis # schizophrenia # DVT prophylaxis #Right scrotal swelling nontender since Braga removal likely trauma Will check ultrasound scrotum # code status: Full code Subjective Date/time seen: 08/04/21 15:25 Interval history: 60yo male with schizophrenia, cirrhosis here for for weakness. Assuming care. Chart reviewed. Feels tired. Eating okay. No abd pain. No CP or SOB. No cough He is up walking in the room. 08/02/2021 H&H dropped with FOBT positive GI saw plan for EGD colonoscopy next week.Reports his right scrotum is swollen but not painful since the catheter has been removed. 08/03/2021 H&H remains stable. He is going through a bowel prep for planned EGD and colonoscopy tomorrow. Right scrotum is still swollen. Denies any pain in the area. No fever chills vitals has been stable. 08/04/2019 to went for an EGD and a colonoscopy today EGD could not be done due to poor prep. He is going for colonoscopy again tomorrow. H&H remains fairly stable active signs of bleeding. Review of Systems Review of Systems: All systems reviewed & are unremarkable except as noted in HPI and below Exam Narrative: Gen - NARD Chest - few bibasilar rhonchi, nml RR CV - RRR S1/S2, occas extra beats Abd - Soft, NT/ND, Positive BS -Braga secured and draining clear yellow urine Ext - No pedal edema Psych - Nml mood and affect Skin - Warm and dry Genital right scrotum swollen edematous nontender Objective Data Vital Signs Vi
[2021-08-04] MEDS: traZODone HCL 50 MG TABLET 100 MG PO (21:47)
[2021-08-05] VITALS (8 sets, daily range): BP systolic 102–158; BP diastolic 47–64; PULSE 64–87; RESP 18–20; TEMP 36.4–37.4; O2SAT 90–100
[2021-08-05] MEDS: LACTATED RINGERS 1,000 ML 150 ML IV CONT (00:56)
--- NOTE | 2021-08-05 01:10 | PC.NURSE ---
Patient awake and alert requesting ice chips. Colonoscopy procedure and NPO diet order explained. Patient request ice chips and popsicle. Teaching provided again. No known time of procedure also explain to patient. No complaints at this time and states that stools are clear. Patient independent to commode. Will continue to monitor.
[2021-08-05 07:03] LABS: Anion Gap 5 mmol/L (8-16); Blood Urea Nitrogen 3 mg/dL (9-20); Calcium 8.4 mg/dL (8.4-10.2); Carbon Dioxide 22 mmol/L (22-30); Chloride 108 mmol/L (98-107); Estimated CRCL calculation 89 ml/min; Estimated Glomerular Filt Rate > 60; Glucose 86 mg/dL (65-110); Sodium 135 mmol/L (137-145)
[2021-08-05 07:31] LABS: Basophils Percent Auto 0.4 % (0.2-1.2); Eosinophils Absolute Auto 0.1 K/mm3 (0-0.3); Eosinophils Percent Auto 1.5 % (0-4.4); Hematocrit 22.9 % (42.0-52.0); Immature Granulocyte Absolute 0.01 K/mm3 (0.00-0.031); Immature Granulocyte Percent A 0.2 % (0-0.5); Immature Platelet Fraction Pct 6.6 % (0.9-11.2); Lymphocytes Absolute Auto 1.37 K/mm3 (0.9-3.2); Mean Corpuscular HGB Conc 29.3 g/dl (32-36); Mean Corpuscular Hemoglobin 21.3 pg (26-34); Mean Corpuscular Volume 72.9 fl (80-100); Mean Platelet Volume 11.2 fl (7.4-10.4); Monocytes Absolute Auto 0.7 K/mm3 (0.1-0.6); Monocytes Percent Auto 14.4 % (2.6-8.5); Neutrophils Absolute Auto 2.6 K/mm3 (1.3-6.7); Neutrophils Percent Auto 54.5 % (45.5-73.1); Platelet Count Result 164 k/mm3 (150-375); Red Blood Count 3.14 M/mm3 (4.6-6.20); Red Cell Distribution Width 22.9 % (11.5-14.5); White Blood Count 4.7 K/mm3 (4.5-10.0)
[2021-08-05 07:58] LABS: Hemoglobin 6.7 g/dL (14.0-18.0)
[2021-08-05] MEDS: PANTOPRAZOLE 40 MG TABLET PO ×2 (09:17→17:32)
[2021-08-05] MEDS: FLUTICASONE PROPIONATE 0.05% NA SPR 16 GM BTL (*BKC) 2 SPRAY NASAL (09:17)
[2021-08-05] MEDS: nadoloL 20 MG TABLET PO (09:17)
[2021-08-05] MEDS: FAMOTIDINE 20 MG TABLET 40 MG PO (09:17)
[2021-08-05] MEDS: SODIUM CHLORIDE 0.9% IV 250 ML 30 ML IV CONT (12:07)
--- NOTE | 2021-08-05 12:51 | WPDGIPROGNO ---
Progress Note: A&P Assessment and Plan (1) Anemia: Code(s): D64.9 - Anemia, unspecified Status: Acute Assessment and Plan: Patient with microcytic anemia. Appears to have iron deficiency. No active bleeding identified but occult blood evident in stools. EGD was unremarkable. Colonoscopy not able to be performed as patient refuses preparation would recommend iron replacement. Patient does have a prior colonoscopy that was unremarkable. Continue to monitor hemoglobin as an outpatient. Consider hematology evaluation if anemia persists. (2) Occult blood in stools: Code(s): R19.5 - Other fecal abnormalities Status: Acute (3) Cirrhosis of liver: Code(s): K74.60 - Unspecified cirrhosis of liver Status: Acute Assessment and Plan: Cirrhosis of the liver suggested on CT scanning. No obvious clinical manifestations at this point. Supportive care advised. (4) Schizophrenia: Code(s): F20.9 - Schizophrenia, unspecified Status: Acute Subjective Date/time seen: 08/05/21 12:51 Patient denies any obvious blood in his stools. Refuses to take additional prep for colonoscopy. No active bleeding identified. Review of Systems Review of Systems: All systems reviewed & are unremarkable except as noted in HPI and below Exam Narrative: On physical exam patient is alert. Vital signs are stable. Abdomen is soft bowel sounds are present nontender with no organomegaly. Extremities are without clubbing cyanosis or edema. Objective Data Vital Signs Vital Signs: Vital Signs - 24 hr 08/04/21 14:00 08/04/21 19:46 08/04/21 22:00 Temperature 98.0 F 98.1 F Pulse Rate 92 92 70 Respiratory Rate 14 14 16 Blood Pressure 138/70 149/61 H Pulse Oximetry 100 100 100 08/05/21 06:00 08/05/21 09:17 08/05/21 12:26 Temperature 99.3 F 98.7 F Pulse Rate 87 87 64 Respiratory Rate 18 20 Blood Pressure 102/64 121/51 L Pulse Oximetry 100 100 08/05/21 12:42 Temperature 98.7 F Pulse Rate 66 Respiratory Rate 18 Blood Pressure 141/59 H Pulse Oximetry 100 Intake/Output Intake/Output: Intake & Output 08/02/21 08/03/21 08/04/21 08/05/21 23:59 23:59 23:59 23:59 Intake Total 2610 3370 2120 1050 Output Total 829 233 6297 Balance 2310 3370 1520 -1550 Meds/Results Medications: Active Medications Generic Name Dose Route Start Last Admin Trade Name Stefanie PRN Reason Stop Dose Admin Famotidine 40 mg 07/31/21 09:00 08/05/21 09:17 Famotidine 20 Mg Tablet PO 40 mg DAILY JANIE Administration Fluticasone Propionate 2 spray 07/31/21 09:00 08/05/21 09:17 Fluticasone Propionate 0.05% Na Spr 16 Gm Btl (*Bkc) NASAL 2 spray DAILY JANIE Administration Ceftriaxone Sodium/Dextrose 1 gm in 50 mls @ 100 mls/hr 07/31/21 04:00 08/05/21 04:30 Rocephin 1 Gm/D5w 50 Ml IVPB Infused Q24H JANIE Infusion Sodium Chloride 250 mls @ 30 mls/hr 08/05/21 08:57 08/05/21 12:07 Normal Saline Iv IV CONT 08/05/21 17:16 30 mls/hr .Q8H20M STA Administration Nadolol 20 mg 07/31/21 09:00 08/05/21 09:17 Nadolol 20 Mg Tablet PO 20 mg DAILY JANIE Administration Pantoprazole Sodium 40 mg 07/30/21 17:00 08/05/21 09:17 Pantoprazole 40 Mg Tablet PO 40 mg BID JNAIE Administration Trazodone HCl 100 mg 07/30/21 21:00 08/04/21 21:47 Trazodone Hcl 50 Mg Tablet PO 100 mg HS JANIE Administration Radiology Results: ITS Impressions Abdomen X-Ray 07/30/21 06:49 IMPRESSION: Can't confidently identify nephrolithiasis or left ureteral stone. Chest X-Ray 07/30/21 08:01 IMPRESSION: No acute cardiopulmonary findings. Abdomen/Pelvis CT 07/30/21 08:14 IMPRESSION: 1. 2 mm stone in distal left ureter. No hydronephrosis. 2. Small bilateral nonobstructing kidney stones. 3. Supraumbilical ventral hernia containing fat. Left inguinal hernia containing fat. 4. Cirrhosis of the liver. 5. Cholelithiasis. Scrotum Ultrasound
--- NOTE | 2021-08-05 16:20 | P.PNIM_ITS ---
Progress Note: A&P Assessment and Plan (1) Occult blood in stools: Code(s): R19.5 - Other fecal abnormalities Status: Acute Assessment and Plan: Stool occult blood test is positive. No obvious signs of bleeding * EGD performed on 08/04/21 with pyloric ulcer without evidence of bleeding or stigmata of bleeding. Continue Protonix 40 mg daily. Avoid aspirin and NSAIDs. This was not felt to be the source of GI bleeding * Colonoscopy not able to performed due to poor prep. Rescheduled for today, however patient did not tolerate prep last night. * Continue to trend H&H * Appreciate gastroenterology consultation (2) Anemia: Code(s): D64.9 - Anemia, unspecified Status: Acute Assessment and Plan: Hemoglobin declined to 6.7 today. * Transfuse 1 unit pRBC * Repeat H&H 1 hour following completion of transfusion * Source of anemia felt to be related to iron deficiency. Iron panel reviewed * Will need to initiate iron supplementation following transfusion * Monitor H&H closely and transfuse as needed to maintain stable hemoglobin (3) Cirrhosis of liver: Code(s): K74.60 - Unspecified cirrhosis of liver Status: Acute Assessment and Plan: Chronic issue. * He has appointment to establish with reeler operator 08/11/2021 * Possibly related to history of heavy alcohol use. Patient has decreased alcohol intake (4) Acute renal failure: Code(s): N17.9 - Acute kidney failure, unspecified Status: Acute Assessment and Plan: Resolved. * GFR >60 today (5) Diarrhea: Code(s): R19.7 - Diarrhea, unspecified Status: Acute Assessment and Plan: Patient with complaints of ongoing diarrhea x1 month * No further episodes of diarrhea since colonoscopy prep overnight on 08/03 * Stool cultures negative (6) Acute UTI: Code(s): N39.0 - Urinary tract infection, site not specified Status: Acute Assessment and Plan: Urine culture with >100k serratia organism * Continue Ceftriaxone #6 based on susceptibilities (7) Left ureteral stone: Code(s): N20.1 - Calculus of ureter Status: Acute Assessment and Plan: 1-2 mm left UVJ stone evident on imaging * Seen in consultation by Urology * Not felt to be contributing to KEYONNA, not clinically significant * No plans for further intervention (8) Schizophrenia: Code(s): F20.9 - Schizophrenia, unspecified Status: Acute Assessment and Plan: No acute issues * Does not appear to be in any antipsychotic agents. He should follow-up with Psychiatry as an outpatient (9) Hydrocele: Code(s): N43.3 - Hydrocele, unspecified Status: Acute Assessment and Plan: Complained of scrotal edema. * Ultrasound of scrotum shows large right hydrocele, not evident on prior CT from 07/30/2021. * Urology following, appreciate recommendations (10) Cholelithiasis: Code(s): K80.20 - Calculus of gallbladder without cholecystitis without obstruction Status: Acute Assessment and Plan: CT abdomen/pelvis with incidental finding of cholelithiasis. * No signs/symptoms of acute cholecystitis * Lipase is slightly elevated, however pancreas normal on CT * Consider outpatient follow-up with General surgery if he were to develop symptoms Subjective Date/time seen: 08/05/21 16:20 Interval history: Date of service: 08/05/2021 Loy Cartwright is a 60-year-old male with
--- NOTE | 2021-08-05 16:20 | PM.IMPN ---
Progress Note: A&P Assessment and Plan (1) Occult blood in stools: Code(s): R19.5 - Other fecal abnormalities Status: Acute Assessment and Plan: Stool occult blood test is positive. No obvious signs of bleeding EGD performed on 08/04/21 with pyloric ulcer without evidence of bleeding or stigmata of bleeding. Continue Protonix 40 mg daily. Avoid aspirin and NSAIDs. This was not felt to be the source of GI bleeding Colonoscopy not able to performed due to poor prep. Rescheduled for today, however patient did not tolerate prep last night. Continue to trend H&H Appreciate gastroenterology consultation (2) Anemia: Code(s): D64.9 - Anemia, unspecified Status: Acute Assessment and Plan: Hemoglobin declined to 6.7 today. Transfuse 1 unit pRBC Repeat H&H 1 hour following completion of transfusion Source of anemia felt to be related to iron deficiency. Iron panel reviewed Will need to initiate iron supplementation following transfusion Monitor H&H closely and transfuse as needed to maintain stable hemoglobin (3) Cirrhosis of liver: Code(s): K74.60 - Unspecified cirrhosis of liver Status: Acute Assessment and Plan: Chronic issue. He has appointment to establish with line builder 08/11/2021 Possibly related to history of heavy alcohol use. Patient has decreased alcohol intake (4) Acute renal failure: Code(s): N17.9 - Acute kidney failure, unspecified Status: Acute Assessment and Plan: Resolved. GFR >60 today (5) Diarrhea: Code(s): R19.7 - Diarrhea, unspecified Status: Acute Assessment and Plan: Patient with complaints of ongoing diarrhea x1 month No further episodes of diarrhea since colonoscopy prep overnight on 08/03 Stool cultures negative (6) Acute UTI: Code(s): N39.0 - Urinary tract infection, site not specified Status: Acute Assessment and Plan: Urine culture with >100k serratia organism Continue Ceftriaxone #6 based on susceptibilities (7) Left ureteral stone: Code(s): N20.1 - Calculus of ureter Status: Acute Assessment and Plan: 1-2 mm left UVJ stone evident on imaging Seen in consultation by Urology Not felt to be contributing to KEYONNA, not clinically significant No plans for further intervention (8) Schizophrenia: Code(s): F20.9 - Schizophrenia, unspecified Status: Acute Assessment and Plan: No acute issues Does not appear to be in any antipsychotic agents. He should follow-up with Psychiatry as an outpatient (9) Hydrocele: Code(s): N43.3 - Hydrocele, unspecified Status: Acute Assessment and Plan: Complained of scrotal edema. Ultrasound of scrotum shows large right hydrocele, not evident on prior CT from 07/30/2021. Urology following, appreciate recommendations (10) Cholelithiasis: Code(s): K80.20 - Calculus of gallbladder without cholecystitis without obstruction Status: Acute Assessment and Plan: CT abdomen/pelvis with incidental finding of cholelithiasis. No signs/symptoms of acute cholecystitis Lipase is slightly elevated, however pancreas normal on CT Consider outpatient follow-up with General surgery if he were to develop symptoms Subjective Date/time seen: 08/05/21 16:20 Interval history: Date of service: 08/05/2021 Loy Cartwright is a 60-year-old male with a history of CHF, cirrhosis of the liver, and schizophrenia who is seen in follow-up for suspected GI bleed. He is feeling a lot better today. He denies any episodes of bleeding. Denies melena, hematochezia, hematuria, hemoptysis, hematemesis. His last bowel movement was when he did his colonoscopy prep. He states his stools were light in color and to not have any bleeding. He was not able to tolerate the colonoscopy prep last night, stating it made him feel very nauseous. He has not had any furthe
[2021-08-05 20:03] LABS: Hematocrit 28.2 % (42.0-52.0); Hemoglobin 8.3 g/dL (14.0-18.0)
[2021-08-05] MEDS: traZODone HCL 50 MG TABLET 100 MG PO (20:46)
[2021-08-06 05:43] VITALS: BP 131/55; PULSE 73; RESP 18; TEMP 36.6; O2SAT 100
[2021-08-06 07:43] LABS: Basophils Percent Auto 0.4 % (0.2-1.2); Eosinophils Absolute Auto 0.1 K/mm3 (0-0.3); Eosinophils Percent Auto 1.4 % (0-4.4); Hematocrit 26.9 % (42.0-52.0); Immature Granulocyte Absolute 0.03 K/mm3 (0.00-0.031); Immature Granulocyte Percent A 0.5 % (0-0.5); Lymphocytes Absolute Auto 1.42 K/mm3 (0.9-3.2); Mean Corpuscular HGB Conc 29.7 g/dl (32-36); Mean Corpuscular Hemoglobin 22.1 pg (26-34); Mean Corpuscular Volume 74.3 fl (80-100); Mean Platelet Volume 10.9 fl (7.4-10.4); Monocytes Absolute Auto 0.7 K/mm3 (0.1-0.6); Monocytes Percent Auto 12.3 % (2.6-8.5); Neutrophils Absolute Auto 3.4 K/mm3 (1.3-6.7); Neutrophils Percent Auto 60.4 % (45.5-73.1); Platelet Count Result 190 k/mm3 (150-375); Red Blood Count 3.62 M/mm3 (4.6-6.20); Red Cell Distribution Width 22.8 % (11.5-14.5); White Blood Count 5.7 K/mm3 (4.5-10.0)
[2021-08-06 07:58] LABS: Anion Gap 7 mmol/L (8-16); Blood Urea Nitrogen 3 mg/dL (9-20); Calcium 8.3 mg/dL (8.4-10.2); Carbon Dioxide 20 mmol/L (22-30); Chloride 108 mmol/L (98-107); Estimated CRCL calculation 89 ml/min; Estimated Glomerular Filt Rate > 60; Glucose 101 mg/dL (65-110); Potassium 3.6 mmol/L (3.4-5.0); Sodium 135 mmol/L (137-145)
[2021-08-06 08:31] LABS: Hypochromasia 2+ (NORMAL); Platelet Estimate Adequate (Adequate)
[2021-08-06 08:32] LABS: Anisocytosis 3+ (NORMAL)
[2021-08-06 08:33] LABS: Microcytosis 1+ (NORMAL)
[2021-08-06 08:34] LABS: Atypical Lymphocytes Present
[2021-08-06] MEDS: PANTOPRAZOLE 40 MG TABLET PO ×2 (10:00→16:28)
[2021-08-06] MEDS: FAMOTIDINE 20 MG TABLET 40 MG PO (10:00)
[2021-08-06] MEDS: FLUTICASONE PROPIONATE 0.05% NA SPR 16 GM BTL (*BKC) 2 SPRAY NASAL (10:00)
[2021-08-06 10:01] VITALS: PULSE 76
[2021-08-06] MEDS: nadoloL 20 MG TABLET PO (10:01)
[2021-08-06 12:03] LABS: Hematocrit 30.5 % (42.0-52.0); Hemoglobin 9.2 g/dL (14.0-18.0)
[2021-08-06 14:00] VITALS: BP 146/64; PULSE 70; RESP 18; TEMP 36.8; O2SAT 100
--- NOTE | 2021-08-06 15:04 | P.DS_ITS ---
DS: Admitting Diagnosis Discharge Date 08/06/2021 Admitting Diagnosis Anemia DS: Discharge Diagnosis Discharge Diagnosis (1) Occult blood in stools: Code(s): R19.5 - Other fecal abnormalities Status: Acute Assessment and Plan: Stool occult blood test positive. No obvious bleeding * EGD performed on 08/04/21 with pyloric ulcer without evidence of bleeding or stigmata of bleeding. Continue Protonix 40 mg daily. Avoid aspirin and NSAIDs. This was not felt to be the source of GI bleeding * Colonoscopy not able to performed due to poor prep. He had a prior unremarkable colonoscopy. * Started on iron supplementation * Seen in consultation by Gastroenterology (2) Anemia: Code(s): D64.9 - Anemia, unspecified Status: Acute Assessment and Plan: [place] to be secondary to iron deficiency. * Was transfused 1 unit PRBC * Hemoglobin and hematocrit stabilized following transfusion * Source of anemia felt to be related to iron deficiency. Iron panel reviewed * Started on oral iron supplementation b.i.d. * Repeat H&H in 1 week to ensure remaining stable (3) Cirrhosis of liver: Code(s): K74.60 - Unspecified cirrhosis of liver Status: Acute Assessment and Plan: Chronic issue. * He has appointment to establish with chiller hand 08/11/2021 * Possibly related to history of heavy alcohol use. Patient has decreased alcohol intake. Discussed avoidance of alcohol. Thiamine and folic acid daily (4) Acute renal failure: Code(s): N17.9 - Acute kidney failure, unspecified Status: Acute Assessment and Plan: Resolved. (5) Diarrhea: Code(s): R19.7 - Diarrhea, unspecified Status: Acute Assessment and Plan: Resolved. Patient with complaints of ongoing diarrhea x1 month * No further episodes of diarrhea since colonoscopy prep overnight on 08/03 * Stool cultures negative (6) Acute UTI: Code(s): N39.0 - Urinary tract infection, site not specified Status: Acute Assessment and Plan: Urine culture with >100k serratia organism * Completed 7 days of IV ceftriaxone (7) Left ureteral stone: Code(s): N20.1 - Calculus of ureter Status: Acute Assessment and Plan: 1-2 mm left UVJ stone evident on imaging * Seen in consultation by Urology * Not felt to be contributing to KEYNONA, not clinically significant * No plans for further intervention at this time * Follow-up with urology as an outpatient as needed (8) Schizophrenia: Code(s): F20.9 - Schizophrenia, unspecified Status: Acute Assessment and Plan: No acute issues * Does not appear to be on any antipsychotic agents. * He should follow-up with Psychiatry as an outpatient (9) Hydrocele: Code(s): N43.3 - Hydrocele, unspecified Status: Acute Assessment and Plan: Complained of scrotal edema. * Ultrasound of scrotum shows large right hydrocele, not evident on prior CT from 07/30/2021. * Discussed case with urology. Recommended outpatient follow-up (10) Cholelithiasis: Code(s): K80.20 - Calculus of gallbladder without cholecystitis without obstruction Status: Acute Assessment and Plan: CT abdomen/pelvis with incidental finding of cholelithiasis. * No signs/symptoms of acute cholecystitis * Lipase is slightly elevated, however pancreas normal on CT. Discussed with GI , not felt to be clinically significant * Consider outpatient fo
--- NOTE | 2021-08-06 15:04 | PM.DS ---
DS: Admitting Diagnosis Discharge Date 08/06/2021 Admitting Diagnosis Anemia DS: Discharge Diagnosis Discharge Diagnosis (1) Occult blood in stools: Code(s): R19.5 - Other fecal abnormalities Status: Acute Assessment and Plan: Stool occult blood test positive. No obvious bleeding EGD performed on 08/04/21 with pyloric ulcer without evidence of bleeding or stigmata of bleeding. Continue Protonix 40 mg daily. Avoid aspirin and NSAIDs. This was not felt to be the source of GI bleeding Colonoscopy not able to performed due to poor prep. He had a prior unremarkable colonoscopy. Started on iron supplementation Seen in consultation by Gastroenterology (2) Anemia: Code(s): D64.9 - Anemia, unspecified Status: Acute Assessment and Plan: [place] to be secondary to iron deficiency. Was transfused 1 unit PRBC Hemoglobin and hematocrit stabilized following transfusion Source of anemia felt to be related to iron deficiency. Iron panel reviewed Started on oral iron supplementation b.i.d. Repeat H&H in 1 week to ensure remaining stable (3) Cirrhosis of liver: Code(s): K74.60 - Unspecified cirrhosis of liver Status: Acute Assessment and Plan: Chronic issue. He has appointment to establish with referral coordinator 08/11/2021 Possibly related to history of heavy alcohol use. Patient has decreased alcohol intake. Discussed avoidance of alcohol. Thiamine and folic acid daily (4) Acute renal failure: Code(s): N17.9 - Acute kidney failure, unspecified Status: Acute Assessment and Plan: Resolved. (5) Diarrhea: Code(s): R19.7 - Diarrhea, unspecified Status: Acute Assessment and Plan: Resolved. Patient with complaints of ongoing diarrhea x1 month No further episodes of diarrhea since colonoscopy prep overnight on 08/03 Stool cultures negative (6) Acute UTI: Code(s): N39.0 - Urinary tract infection, site not specified Status: Acute Assessment and Plan: Urine culture with >100k serratia organism Completed 7 days of IV ceftriaxone (7) Left ureteral stone: Code(s): N20.1 - Calculus of ureter Status: Acute Assessment and Plan: 1-2 mm left UVJ stone evident on imaging Seen in consultation by Urology Not felt to be contributing to KEYONNA, not clinically significant No plans for further intervention at this time Follow-up with urology as an outpatient as needed (8) Schizophrenia: Code(s): F20.9 - Schizophrenia, unspecified Status: Acute Assessment and Plan: No acute issues Does not appear to be on any antipsychotic agents. He should follow-up with Psychiatry as an outpatient (9) Hydrocele: Code(s): N43.3 - Hydrocele, unspecified Status: Acute Assessment and Plan: Complained of scrotal edema. Ultrasound of scrotum shows large right hydrocele, not evident on prior CT from 07/30/2021. Discussed case with urology. Recommended outpatient follow-up (10) Cholelithiasis: Code(s): K80.20 - Calculus of gallbladder without cholecystitis without obstruction Status: Acute Assessment and Plan: CT abdomen/pelvis with incidental finding of cholelithiasis. No signs/symptoms of acute cholecystitis Lipase is slightly elevated, however pancreas normal on CT. Discussed with GI, not felt to be clinically significant Consider outpatient follow-up with General surgery if he were to develop symptoms DS: Summary Hospital Course Hospital Course: Date of admission: 07/30/2021 Date of discharge: 08/06/2021 Loy Cartwright is a 60-year-old male with a history of CHF, cirrhosis of the liver, and schizophrenia who presented to the emergency department on 07/30/2021 with complaints of weakness and cough. On presentation to the ED, his blood pressure was slightly decreased at 90 4/54 with additional vital signs stable, he was af
[2021-08-06] MEDS: FERROUS SULFATE 324 MG TABLET PO (16:28)
== END 2021-08-06 17:30 | disposition home health service (06) | DRG 378 ==
LOC: ANHED 07-30 06:19 → ANH3MEDSUR 07-30 06:24
PROVIDERS: Internal Medicine; Internal Medicine Gastroenterology; Internal Medicine Nephrology; Admitting Provider Internal Medicine; Emergency Provider Emergency Medicine; PCP Family Medicine Adolescent Medicine; Visit Provider Physician Assistant
PROC: 0DJ08ZZ Inspection of Upper Intestinal Tract, Via Natural or Artificial Opening Endoscopic (ICD-10-PCS; CPT 43235; principal; 2021-08-04 12:30)
DX: K92.1 Melena (principal); N17.9 Acute kidney failure, unspecified; N39.0 Urinary tract infection, site not specified; E87.2 Acidosis; N20.2 Calculus of kidney with calculus of ureter; D50.9 Iron deficiency anemia, unspecified; Z53.8 Procedure and treatment not carried out for other reasons; K25.9 Gastric ulcer, unspecified as acute or chronic, without hemorrhage or perforation; N43.3 Hydrocele, unspecified; K80.20 Calculus of gallbladder without cholecystitis without obstruction; F20.9 Schizophrenia, unspecified; I50.9 Heart failure, unspecified; K74.60 Unspecified cirrhosis of liver; R19.7 Diarrhea, unspecified; F10.20 Alcohol dependence, uncomplicated; F17.210 Nicotine dependence, cigarettes, uncomplicated; K57.90 Diverticulosis of intestine, part unspecified, without perforation or abscess without bleeding; M19.90 Unspecified osteoarthritis, unspecified site; R53.1 Weakness; Z20.822 Contact with and (suspected) exposure to COVID-19
CPT/HCPCS: 36415; 36430; 51702; 71045; 74018; 74176; 76870; 80048; 80053; 80069; 80307; 81001; 82274; 82550; 82570; 82607; 82728; 82746; 83540; 83550; 83605; 83690; 83735; 84100; 84156; 84300; 84443; 85014; 85018; 85025; 85055; 85610; 85730; 86140; 86850; 86900; 86901; 86920; 87015; 87040; 87045; 87077; 87081; 87086; 87088; 87177; 87186; 87209; 87269; 87272; 87324; 87426; 87427; 89055; 93976; 96361; 96365; 97110; 97116; 97161; 97165; 97530; 99291; A9270; C9803; J0131; J0696; J2704; J3475; J3480; J7030; J7040; J7050; J7120; P9016

== ENCOUNTER 2022-01-01 11:45 | Inpatient (IN) | payer MEDICARE, MEDICAID, SELFPAY ==
[2022-01-01] VITALS (15 sets, daily range): BP systolic 118–139; BP diastolic 53–71; PULSE 64–100; RESP 12–20; TEMP 36.6–36.7; O2SAT 93–100; BMI 18.7
--- NOTE | ~2022-01-01 | XR_ITS ---
XR chest 2V 01/01/2022 12:26 Indication: Shortness of breath. Weakness. Procedure: 2 view chest Comparison: 07/30/2021 Findings: There is lingular airspace disease which may represent atelectasis or pneumonia. Heart size normal. No pleural effusion, edema or pneumothorax. Impression: 1: Lingular infiltrates, atelectasis versus developing pneumonia. Reviewed, dictated and finalized at location A. Impression: 1: Lingular infiltrates, atelectasis versus developing pneumonia.
--- NOTE | ~2022-01-01 | XR_ITS ---
XR chest 1V portable 01/08/2022 14:09 Indication: Cough. Covid 19 positive. Procedure: AP portable chest Comparison: 01/01/2022 Findings: Interval progression of lingular airspace disease, compatible with pneumonia. Heart size no rmal. No edema, pleural effusion or pneumothorax. No acute osseous abnormality. Impression: 1: Interval progression of lingular airspace disease, compatible with pneumonia. Reviewed, dictated and finalized at location B. Impression: 1: Interval progression of lingular airspace disease, compatible with pneumonia .
--- NOTE | 2022-01-01 11:55 | ECG_ITS ---
Measurements Intervals [place] Rate: 67 P: 77 TX: 158 QRS: 62 QRSD: 81 T: 81 QT: 392 QTc: 415 Interpretive Statements SINUS RHYTHM POSSIBLE LEFT ATRIAL ENLARGEMENT [-0.1mV P WAVE IN V1/V2] BORDERLINE ECG COMPARED TO ECG 12/15/2018 17:07:58 NO SIGNIFICANT CHANGES Electronically Signed On 01-01-2022 17:52:55 CDT by Meño Ayala M.D.
[2022-01-01 12:16] LABS: Basophils Absolute Auto 0.1 K/mm3 (0.0-0.1); Basophils Percent Auto 0.8 % (0.2-1.2); Eosinophils Percent Auto 0.4 % (0-4.4); Hematocrit 40.4 % (42.0-52.0); Hemoglobin 13.3 g/dL (14.0-18.0); Immature Granulocyte Absolute 0.08 K/mm3 (0.00-0.031); Immature Granulocyte Percent A 0.7 % (0-0.5); Lymphocytes Absolute Auto 1.99 K/mm3 (0.9-3.2); Lymphocytes Percent Auto 18.6 % (18.3-44.2); Mean Corpuscular HGB Conc 32.9 g/dl (32-36); Mean Corpuscular Hemoglobin 32.2 pg (26-34); Mean Corpuscular Volume 97.8 fl (80-100); Mean Platelet Volume 10.4 fl (7.4-10.4); Monocytes Absolute Auto 0.6 K/mm3 (0.1-0.6); Monocytes Percent Auto 5.4 % (2.6-8.5); Neutrophils Absolute Auto 7.9 K/mm3 (1.3-6.7); Neutrophils Percent Auto 74.1 % (45.5-73.1); Platelet Count Result 341 k/mm3 (150-375); Red Blood Count 4.13 M/mm3 (4.6-6.20); Red Cell Distribution Width 15.7 % (11.5-14.5); White Blood Count 10.7 K/mm3 (4.5-10.0)
--- NOTE | 2022-01-01 12:24 | PC.NURSE ---
Pt to xray
[2022-01-01 12:26] LABS: Alanine Aminotransferase 11 U/L (6-50); Albumin Level 4.2 g/dL (3.5-5.1); Alkaline Phosphatase 147 U/L (38-126); Anion Gap 15 mmol/L (8-16); Aspartate Amino Transferase 32 U/L (17-59); Bilirubin,Total 1.5 mg/dL (0.2-1.3); Blood Urea Nitrogen 39 mg/dL (9-20); Carbon Dioxide 14 mmol/L (22-30); Chloride 105 mmol/L (98-107); Estimated CRCL calculation 20 ml/min; Estimated Glomerular Filt Rate 20; Glucose 97 mg/dL (65-110); Potassium 5.1 mmol/L (3.4-5.0); Sodium 134 mmol/L (137-145)
[2022-01-01 12:48] LABS: Appearance Urine Slightly Cloudy (Clear); Bilirubin Urine 1+ (Negative); Color Urine Yellow (Yellow); Glucose Urine UA Negative (Negative); Ketones Urine 1+ mg/dL (Negative); Leukocyte Esterase Ur 2+ LEU/UL (Negative); Nitrate Urine Positive (Negative); Protein Urine 1+ mg/dL (Negative); Urobilinogen Urine 0.2 mg/dL (<2.0); pH Urine 5.5 (5.0-9.0)
[2022-01-01] MEDS: SODIUM CHLORIDE 0.9% IV 1,000 ML 999 ML IV CONT (12:51)
[2022-01-01 12:57] LABS: Add Urine Microscopic? YES; Blood Urine Trace-Intact (Negative); Mucus Urine Rare /lpf; Squamous Epithelial Cell Urine Rare /hpf (Few); WBC Urine >75 /hpf
--- NOTE | 2022-01-01 13:21 | ED.WEAKNESS ---
HPI - Weakness General Chief complaint: Weakness Stated complaint: WEIGHT LOSS,DEHYDRATION Time Seen by Provider: 01/01/22 12:36 Source: patient History of Present Illness HPI Narrative: Patient presents with generalized weakness. Reports has been having progressive weakness over the past week or so today is having hard time walking to the car so came to the ER for further evaluation. Ports 1 episode of emesis couple days ago reports he has not been eating or drinking very well over this time. Also reports a mild sore throat. Also concerned about a cyst that ruptured on his bottom side. Denies any focal abdominal pain chest pain denies any active nausea or vomiting or diarrhea. Related Data Home Medications Medication Instructions Recorded Confirmed furosemide 20 mg tablet 20 mg PO QPM 07/30/21 01/01/22 nadolol 20 mg tablet 20 mg PO QPM 07/30/21 01/01/22 pantoprazole 40 mg tablet,delayed 40 mg PO BID 07/30/21 01/01/22 release spironolactone 50 mg tablet 50 mg PO QPM 07/30/21 01/01/22 trazodone 100 mg tablet 100 mg PO HS 07/30/21 01/01/22 ferrous sulfate 325 mg (65 mg 325 mg PO BIDWM 09/17/21 01/01/22 iron) tablet famotidine 40 mg tablet 40 mg PO QPM 01/01/22 01/01/22 fluticasone propionate 50 2 spray intranasal QPM 01/01/22 01/01/22 mcg/actuation nasal spray,suspension folic acid 1 mg tablet 1 mg PO QPM 01/01/22 01/01/22 thiamine HCl (vitamin B1) 100 mg 50 mg PO QPM 01/01/22 01/01/22 tablet Allergies Allergy/AdvReac Type Severity Reaction Status Date / Time iodine Allergy Unknown Unknown Verified 01/01/22 15:56 Contrast Media Allergy Mild Hives / Uncoded 01/01/22 15:56 [place] Review of Systems Review of Systems: CONSTITUTIONAL: Denies fever, chills, or sweats. EYES: Denies visual changes, redness, or discharge. ENT: Denies rhinorrhea, congestion, sore throat, or otalgia. CARDIOVASCULAR: Denies chest pain, palpitations, or edema. RESPIRATORY: Denies cough or dyspnea. GASTROINTESTINAL: Denies abdominal pain, nausea, vomiting, or diarrhea. GENITOURINARY: Denies dysuria or hematuria. SKIN: Denies rash or itching. MUSCULOSKELETAL: Denies back pain, joint pain, or myalgia. NEUROLOGIC: Denies headache, numbness, dizziness, or focal weakness. PSYCHIATRIC: Denies anxiety or depression. All systems reviewed & are unremarkable except as noted in HPI and below PMFSH Past Medical History Medical History Abnormal colonoscopy 01/18 CHF (congestive heart failure) Decubitus ulcer, buttock Depression Diarrhea Fatigue GI bleed Hypokalemia Metabolic acidosis Poor appetite Schizophrenia Traumatic arthropathy, right hip Weight loss Surgical History Surgical History History of left hemicolectomy 2019 History of rectal surgery 2019 Repair colorectal fistula Family History Family History Sibling Family history of malignant neoplasm Father Family history of lung cancer Diabetes mellitus Hypertension Mother Family history of congestive heart failure Diabetes mellitus Hypertension Other Hyperlipidemia Social History Social History Smoking packs per day: 0.1 Smoking cigarettes per day: 2.0 Years smoked: 41 Smoking pack-years: 4.10 Smoking status: Current every day smoker Tobacco type: cigarettes Alcohol intake: current Drinks per week: 7 Substance use: current Substance use type: marijuana Other substance usage details: 1/4 pint fireball per day Last use: 12/18/21 Additional occupation/education comments: disabled Sexual Orientation (if Verbalized by the Patient): Straight or Heterosexual Spiritual care concerns: No Agree to blood products: Yes Exam Narrative: GENERAL: Well-appearing, well-nourished, and in no ac
[2022-01-01] MEDS: ceFAZolin 500 MG in DEXTROSE 5% IN WATER 50 ML 100 MG IVPB (13:53)
[2022-01-01] MEDS: SODIUM CHLORIDE 0.9% IV 1,000 ML 125 ML IV CONT ×2 (13:53→22:19)
--- NOTE | 2022-01-01 14:57 | PM.IMHP ---
H&P: [facility] History of Present Illness Date/Time: 01/01/22 14:57 Chief Complaint: Generalized, nonfocal weakness Narrative: This pleasant 61-year-old male patient with significant past medical history of congestive heart failure, cirrhotic liver disease, depression, diarrhea, fatigue, GI bleed, hypokalemia, metabolic acidosis, poor appetite, schizophrenia, history of weight loss and a decubitus ulcer to his buttock presents to the emergency room with complaints of having generalized fatigue and weakness for the past week. He reports a greater than 2 weeks he had loss of appetite and transient dyspnea, however he is noted to have just eaten in the room. He states that he feels sluggish and has had difficulty in starting his urine stream. In addition he endorses that there is a cyst on his buttock that has ruptured within the past week and that it has continually been draining. Patient denies any fevers or chills but does endorse that he has had recent emesis. He denies any overt chest pain, dyspnea at rest, persistent vomiting or diarrhea and no headaches, lightheadedness or dizziness. In the ED his workup was started and labs were significant for a white blood cell count of 10.7, potassium of 5.1, creatinine of 3.70 (baseline is normal levels and was 1.19 exactly 1 month ago), BUN of 39 total bili of 1.5 urine showing positive nitrites, leukocyte esterase of 2+ and greater than 75 wbc's. Chest x-ray was significant for lingular infiltrates, atelectasis versus developing pneumonia. Patient was started on cefazolin based upon his draining cyst on his buttock. The pt. currently denies any CP, Dyspnea, has just eaten and is not nauseated, and he has no BROWN, dizziness. He just reports weakness and difficulty starting urine stream. Review of Systems Review of Systems: As noted in HPI [facility] Past Medical History Medical History Abnormal colonoscopy 01/18 CHF (congestive heart failure) Decubitus ulcer, buttock Depression Diarrhea Fatigue GI bleed Hypokalemia Metabolic acidosis Poor appetite Schizophrenia Traumatic arthropathy, right hip Weight loss Surgical History Surgical History History of left hemicolectomy 2019 History of rectal surgery 2019 Repair colorectal fistula Family History Family History Sibling Family history of malignant neoplasm Father Family history of lung cancer Diabetes mellitus Hypertension Mother Family history of congestive heart failure Diabetes mellitus Hypertension Other Hyperlipidemia Social History Social History Smoking packs per day: 0.1 Smoking cigarettes per day: 2.0 Years smoked: 41 Smoking pack-years: 4.10 Smoking status: Current every day smoker Tobacco type: cigarettes Alcohol intake: current Drinks per week: 7 Substance use: current Substance use type: marijuana Other substance usage details: 08/05 pint fireball per day Last use: 12/18/21 Additional occupation/education comments: disabled Sexual Orientation (if Verbalized by the Patient): Straight or Heterosexual Spiritual care concerns: No Agree to blood products: Yes Meds Home Medications and Allergies Home Medications Medication Instructions Recorded Confirmed Type furosemide 20 mg tablet 20 mg PO DAILY 07/30/21 12/31/21 History nadolol 20 mg tablet 20 mg PO DAILY 07/30/21 12/31/21 History pantoprazole 40 mg tablet,delayed 40 mg PO BID 07/30/21 12/31/21 History release spironolactone 50 mg tablet 50 mg PO DAILY 07/30/21 12/31/21 History trazodone 100 mg tablet 100 mg PO HS 07/30/21 12/31/21 History ferrous sulfate 325 mg (65 mg 325 mg PO DAILY 09/17/21 12/31/21 History iron) tablet folic acid 1 mg tablet 1 mg PO DAILY #90 tabs 10/20/2112/31
--- NOTE | 2022-01-01 14:58 | ADMGEN ---
This patient, Loy Cartwright, was admitted to 2 Medical Room 251-. Patient/family oriented to hospital policies and general routines including ID bracelet, bed and alarms, visiting hours, pain management, procedures, bathroom and other care routines, personal items, smoking policy, room service/diet, and visiting hours. Information on how to activate the Rapid Response Team has been discussed. Patient/Family are encouraged to report perceived risks to care and to ask questions if they do not understand what they are told or what they should do.
[2022-01-01] MEDS: FLUTICASONE PROPIONATE 0.05% NA SPR 16 GM BTL (*BKC) 2 SPRAY NASAL (22:24)
[2022-01-01] MEDS: FAMOTIDINE 20 MG TABLET 40 MG PO (22:24)
[2022-01-01] MEDS: MIRTAZAPINE 15 MG TABLET PO (22:24)
[2022-01-01] MEDS: nadoloL 20 MG TABLET PO (22:24)
[2022-01-01] MEDS: FOLIC ACID 1 MG TABLET PO (22:24)
[2022-01-01] MEDS: HEPARIN SODIUM 5,000 UNITS/ML VIAL 5000 UNITS SUB-Q (22:25)
[2022-01-01] MEDS: THIAMINE HCL 50 MG TABLET PO (22:25)
[2022-01-01] MEDS: traZODone HCL 50 MG TABLET 100 MG PO (22:25)
--- NOTE | 2022-01-02 | ECHO_ITS ---
Patient Info Name: Loy Cartwright Age: 61 years : 1960 Gender: Male Ht: 70 in Wt: 130 lbs BSA: 1.69 m2 HR: 64 bpm BP: 109 / 57 mmHg Technical Quality: Fair Exam Date: 01/02/2022 2:51 PM Exam Location: [facility] Patient Status: Inpatient Admit Date: 01/01/2022 Staff Ordering Physician: Dimple Barrios Precipitation Equipment Tender: Roselia Monge RDCS Attending Provider: Maryanne Espinal PA-C Referring Physician: Denis SALGADO; Exam Type: CA echo dop color flow w con Study Info Indications I50.9 - Heart failure, unspecified Complete two-dimensional, color flow and Doppler transthoracic echocardiogram is performed with contrast to opacify the left ventricle and to improve the deliniation of the left ventricle endocardial borders. Contrast/Agitated Saline Contrast/Ag. Saline: Definity Amount: 2.00 ml Administered By: Roselia Monge RDCS Existing IV Access: Yes IV Access Condition: patent with no signs of infiltration Summary 1. Left ventricular chamber dimension is normal. 2. Definity contrast administered improved wall motion interpretation. 3. Left ventricular systolic function is normal, estimated at 65-70%. 4. The left ventricular diastolic function is grade I diastolic dysfunction. 5. E/e' 5 is not elevated. 6. No pulmonary hypertension, estimated pulmonary arterial systolic pressure is 13 mmHg. 7. There is trivial pericardial effusion. Left Ventricle E/e' 5 is not elevated. Definity contrast administered improved wall motion interpretation. Left ventricular chamber dimension is normal. Left ventricular systolic function is normal, estimated at 65-70%. The left ventricular diastolic function is grade I diastolic dysfunction. Right Ventricle Right ventricular systolic function is normal and with normal TAPSE 2.0 cm. Right ventricular chamber dimension is normal. Left Atria Left atrial chamber dimension is normal. Right Atria Right atrial chamber dimension is normal. Aortic Valve The aortic valve is trileaflet. There is no aortic valve stenosis. There is no aortic valve regurgitation. Pulmonic Valve There is no pulmonic regurgitation. Mitral Valve There is no mitral valve stenosis. There is no mitral valve regurgitation. Tricuspid Valve There is no tricuspid valve regurgitation. No pulmonary hypertension, estimated pulmonary arterial systolic pressure is 13 mmHg. Pericardium/Pleural There is trivial pericardial effusion. Inferior Vena Cava Normal inferior vena cava with >50% collapse upon inspiration consistent with normal right atrial pressure, 5 mmHg. Aorta The aortic root size at the sinus of Valsalva is normal. Left Ventricular Outflow Tract Name Value Normal LVOT 2D LVOT Diameter 2.00 cm LVOT Doppler LVOT Peak Gradient 5 mmHg LVOT Mean Gradient 3 mmHg LVOT VTI 19.70 cm LVOT VTI/AV VTI Ratio 0.94 LVOT Stroke Volume 61.57 ml LVOT CO
[2022-01-02] MEDS: ceFAZolin 500 MG in DEXTROSE 5% IN WATER 50 ML 100 MG IVPB ×2 (01:50→13:33)
[2022-01-02 04:29] VITALS: BP 109/57; PULSE 61; RESP 18; TEMP 36.6; O2SAT 98
[2022-01-02] MEDS: HEPARIN SODIUM 5,000 UNITS/ML VIAL 5000 UNITS SUB-Q ×3 (06:02→21:06)
[2022-01-02] MEDS: SODIUM CHLORIDE 0.9% IV 1,000 ML 125 ML IV CONT ×2 (06:02→17:55)
[2022-01-02 06:06] LABS: INR 1.3; Prothrombin Time 15.8 Seconds (11.1-14.7)
[2022-01-02 06:07] LABS: Partial Thromboplastin Time 32.2 SECONDS (22.3-36.8)
[2022-01-02 06:11] LABS: Basophils Percent Auto 0.3 % (0.2-1.2); Eosinophils Percent Auto 0.8 % (0-4.4); Hematocrit 30.3 % (42.0-52.0); Immature Granulocyte Absolute 0.03 K/mm3 (0.00-0.031); Immature Granulocyte Percent A 0.8 % (0-0.5); Mean Corpuscular Hemoglobin 32.2 pg (26-34); Mean Corpuscular Volume 97.4 fl (80-100); Mean Platelet Volume 10.2 fl (7.4-10.4); Monocytes Absolute Auto 0.4 K/mm3 (0.1-0.6); Monocytes Percent Auto 9.8 % (2.6-8.5); Neutrophils Absolute Auto 2.7 K/mm3 (1.3-6.7); Neutrophils Percent Auto 74.3 % (45.5-73.1); Platelet Count Result 146 k/mm3 (150-375); Red Blood Count 3.11 M/mm3 (4.6-6.20); Red Cell Distribution Width 15.4 % (11.5-14.5); White Blood Count 3.6 K/mm3 (4.5-10.0)
[2022-01-02 06:15] LABS: Alanine Aminotransferase 10 U/L (6-50); Albumin Level 2.7 g/dL (3.5-5.1); Alkaline Phosphatase 103 U/L (38-126); Anion Gap 5 mmol/L (8-16); Aspartate Amino Transferase 25 U/L (17-59); Bilirubin,Total 0.4 mg/dL (0.2-1.3); Blood Urea Nitrogen 22 mg/dL (9-20); Calcium 7.7 mg/dL (8.4-10.2); Carbon Dioxide 14 mmol/L (22-30); Chloride 114 mmol/L (98-107); Estimated CRCL calculation 41 ml/min; Estimated Glomerular Filt Rate 58; Glucose 106 mg/dL (65-110); Magnesium 2.2 mg/dL (1.6-2.3); Potassium 3.8 mmol/L (3.4-5.0); Sodium 133 mmol/L (137-145)
[2022-01-02] MEDS: PANTOPRAZOLE 40 MG TABLET PO ×2 (08:21→17:57)
[2022-01-02] MEDS: FERROUS SULFATE 324 MG TABLET PO ×2 (08:21→17:57)
--- NOTE | 2022-01-02 12:05 | PM.CNGS ---
Assessment and Plan Assessment and plan (1) Abscess: Code(s): L02.91 - Cutaneous abscess, unspecified Status: Acute Assessment and Plan: This appears to be a toy-anal abscess that is draining already. For now I don't think we need to do a pelvic CT. I recommend that in view of his incontince, that we try to repack the opening of the now draining toy-anal abscess each time the nurses change his adult diaper. Rprat CBC in AM.and continue the current antibiiotics. (2) Weakness: Code(s): R53.1 - Weakness Status: Acute Assessment and Plan: Add appropriate nutition supplements. (3) Esophageal varices without bleeding: Code(s): I85.00 - Esophageal varices without bleeding Status: Acute Assessment and Plan: Watch of bleeding and if needed get GI to see pt. (4) Alcoholic cirrhosis of liver with ascites: Code(s): K70.31 - Alcoholic cirrhosis of liver with ascites Status: Acute Assessment and Plan: Resume Aldactone or sprironolactone when his kdijney function is better. (5) Schizophrenia: Qualifiers: Schizophrenia type: unspecified Qualified Code(s): F20.9 - Schizophrenia, unspecified Code(s): F20.9 - Schizophrenia, unspecified Status: Acute History of Present Illness Consult details Consult date: 01/02/22 Reason for consult: wound care ( patient recently had a abscess opened up and drain near the anal opening) Narrative: This pleasant 61-year-old Black male patient with significant past medical history of congestive heart failure, cirrhotic liver disease, depression, diarrhea, fatigue, GI bleed, hypokalemia, metabolic acidosis, poor appetite, schizophrenia, and a history of weight loss who presented to the emergency room here at [facility] with complaints of having generalized fatigue and weakness for the past week.? He reports that for greater than 2 weeks he has had loss of appetite and transient dyspnea.? He states that he feels sluggish and has had difficulty in starting his urine stream.? In addition he endorses that there is a cyst on his buttock very near the anal opening that has ruptured within the past week and that it has continually been draining. Just prior to that he had noticed a small bump that gradually enlarged and became quite painful. Patient denies any fevers or chills but does endorse that he has had recent emesis. IT was not bloody.? He denies any overt chest pain, dyspnea at rest, persistent vomiting or diarrhea and no headaches, lightheadedness or dizziness.? In the ED his workup was started and labs were significant for a white blood cell count of 10.7, potassium of 5.1, creatinine of 3.70 (baseline is normal levels and was 1.19 exactly 1 month ago), BUN of 39 total bili of 1.5 urine showing positive nitrites, leukocyte esterase of 2+ and greater than 75 wbc's.? Chest x-ray was significant for lingular infiltrates, atelectasis versus developing pneumonia.? Patient was started on cefazolin based upon his draining cyst on his buttock. The pt. currently denies any CP, He has no BROWN, dizziness. He just reports weakness and difficulty starting urine stream. Review of Systems Constitutional: Constitutional: Reports no additional constitutional complaints, Reports fatigue and Denies malaise Comments: Some malaise prior to admission. Eyes: Eyes: Denies change in vision and Denies loss of vision ENT: Reports Normal hearing present, Denies change in voice, Denies dizziness, Denies hoarseness and Denies sore throat Cardiovascular: Cardiovascular: Denies chest pain, Denies leg edema and Denies dyspnea Respiratory: Respiratory: Denies cough and Denies wheezing Gastrointestinal: Gastrointestinal: Denies hematochezia, Denies change in bowel habits and Denies heartburn Comments: history of cirrhosis of the liver on spironolactone unfortunately cording social history apparently patient is still drinking alcohol to some degree.
--- NOTE | 2022-01-02 13:15 | PM.IMPN ---
Progress Note: A&P Assessment and Plan (1) UTI (urinary tract infection): Qualifiers: Hematuria presence: with hematuria Urinary tract infection type: site unspecified Qualified Code(s): N39.0 - Urinary tract infection, site not specified; R31.9 - Hematuria, unspecified Code(s): N39.0 - Urinary tract infection, site not specified Status: Acute Assessment and Plan: -continue current antibiotics Ancef q.12 hours for coverage of both urine as well as skin abscess. -await urine culture report for sensitivity. -monitor daily labs and vital signs. (2) Weakness: Code(s): R53.1 - Weakness Status: Acute Assessment and Plan: -generalized weakness without focal deficit. -could be secondary to current UTI vs toy anal abscess -monitor daily labs and vital signs. -PT and OT evaluation. -initiate fall precautions. (3) Acute kidney failure: Qualifiers: Acute renal failure type: unspecified Qualified Code(s): N17.9 - Acute kidney failure, unspecified Code(s): N17.9 - Acute kidney failure, unspecified Status: Acute Assessment and Plan: -etiology infection versus dehydration versus kidney disease. Suspect prerenal -IV fluids of normal saline at 125 ml per hour. -patient's past history says there is a history of heart failure. I cannot, however find any Cardiology notes for comparison of current cardiac function nor can I find echocardiogram. Echocardiogram will be ordered during this admission as patient will require hydration and we will want to take care as to not fluid overload. - Avoid Nephrotoxic medications. (Recommending Holding Lasix and Spironolactone for now and restarting at later date.) - Monitor labs and VS. - Consider consult to Nephrology if declining renal function. - Daily weight and accurate I&O. -signicant improvement overnight with IVF (4) Abscess: Code(s): L02.91 - Cutaneous abscess, unspecified Status: Acute Assessment and Plan: -toy anal abscess spontaneously draining -wound culture ordered -continue IV antibiotics of Ancef q.12. -seen by wound care who recommended surgical consult -general surgery consulted for further recommendations. May need CT w/ contrast however due to current contrast shortage will defer to general surgery to order if necessary. (5) Hyperkalemia: Code(s): E87.5 - Hyperkalemia Status: Acute Assessment and Plan: - Marginal elevation at 5.1. - Likely secondary to pre-renal causation of dehydration. - Continue IVF and monitor daily labs and VS. -hold supplemental potassium. -improving Subjective Date/time seen: 01/02/22 13:15 Interval history: 61-year-old male patient with significant past medical history of congestive heart failure, cirrhotic liver disease, depression, diarrhea, fatigue, GI bleed, hypokalemia, metabolic acidosis, poor appetite, schizophrenia, history of weight loss and a decubitus ulcer to his buttock, who presented to the hospital for generalized weakness. Today patient states he is feeling a bit better. Still slightly weak. No N/V/abd pain/cp/sob. Has pain in his rectal area when he moves or has bowel movements. No fevers. Review of Systems Review of Systems: All systems reviewed & are unremarkable except as noted in HPI and below Exam Narrative: General: No acute distress, non toxic appearing Eyes: PERRL, no scleral icterus HEENT: NCAT, external ears normal, MMM Respiratory: No respiratory distress, Lungs CTA bilaterally, no wheezing Cardiovascular: RRR, no murmur Abdominal: Soft, nontender, non distended, no rebound or guarding Musculoskeletal: Moves all 4 extremities, no edema Neurological: A/Ox3, speech clear, no facial asymmetry Skin: Warm, dry, toy anal wound not examined as it was just evaluated by general surgery and packed by textile machinery sales representative: Normal affect, normal mood Objective Data V
[2022-01-02 13:55] VITALS: BP 140/67; PULSE 62; RESP 16; TEMP 36.9; O2SAT 99
[2022-01-02] MEDS: PERFLUTREN LIPID MICROSPHERES 1.5 ML VIAL DILUTED TO 10 ML TOTAL VOLUME IV PUSH (15:22)
--- NOTE | 2022-01-02 15:22 | IVDEFINITY ---
Prior to administration of IV Definity the patient was educated on the risks and benefits of the imaging enhancing agent including potential adverse side effects. The patient verbalized understanding. Allergies were verified. No exclusion criteria were identified and at least one of the following inclusion criteria were met: 1) physician request, 2) patient technically difficult to image (per the [place] [employer]ocardi[employer] guidelines of two or more segments not discernable within the apical view), or 3) questionable left ventricular function. ?
[2022-01-02 17:57] VITALS: PULSE 72
[2022-01-02] MEDS: FOLIC ACID 1 MG TABLET PO (17:57)
[2022-01-02] MEDS: THIAMINE HCL 50 MG TABLET PO (17:57)
[2022-01-02] MEDS: nadoloL 20 MG TABLET PO (17:57)
[2022-01-02] MEDS: FLUTICASONE PROPIONATE 0.05% NA SPR 16 GM BTL (*BKC) 2 SPRAY NASAL (17:57)
[2022-01-02] MEDS: FAMOTIDINE 20 MG TABLET 40 MG PO (17:58)
[2022-01-02 19:24] VITALS: BP 125/69; PULSE 66; RESP 16; TEMP 36.8; O2SAT 99
[2022-01-02] MEDS: MIRTAZAPINE 15 MG TABLET PO (21:06)
[2022-01-02] MEDS: traZODone HCL 50 MG TABLET 100 MG PO (21:06)
[2022-01-03] MEDS: ceFAZolin 500 MG in DEXTROSE 5% IN WATER 50 ML 100 MG IVPB ×2 (01:38→13:14)
[2022-01-03] MEDS: SODIUM CHLORIDE 0.9% IV 1,000 ML 125 ML IV CONT ×3 (01:42→22:05)
[2022-01-03 04:17] VITALS: BP 131/68; PULSE 69; RESP 16; TEMP 36.4; O2SAT 97
[2022-01-03 05:35] LABS: Basophils Percent Auto 0.6 % (0.2-1.2); Eosinophils Percent Auto 0.3 % (0-4.4); Hematocrit 31.3 % (42.0-52.0); Hemoglobin 10.3 g/dL (14.0-18.0); Immature Granulocyte Absolute 0.02 K/mm3 (0.00-0.031); Immature Granulocyte Percent A 0.6 % (0-0.5); Lymphocytes Absolute Auto 0.78 K/mm3 (0.9-3.2); Lymphocytes Percent Auto 22.7 % (18.3-44.2); Mean Corpuscular HGB Conc 32.9 g/dl (32-36); Mean Corpuscular Hemoglobin 32.4 pg (26-34); Mean Corpuscular Volume 98.4 fl (80-100); Mean Platelet Volume 10.6 fl (7.4-10.4); Monocytes Absolute Auto 0.5 K/mm3 (0.1-0.6); Monocytes Percent Auto 15.7 % (2.6-8.5); Neutrophils Absolute Auto 2.1 K/mm3 (1.3-6.7); Neutrophils Percent Auto 60.1 % (45.5-73.1); Platelet Count Result 120 k/mm3 (150-375); Red Blood Count 3.18 M/mm3 (4.6-6.20); Red Cell Distribution Width 15.3 % (11.5-14.5); White Blood Count 3.4 K/mm3 (4.5-10.0)
[2022-01-03] MEDS: HEPARIN SODIUM 5,000 UNITS/ML VIAL 5000 UNITS SUB-Q ×3 (05:46→21:54)
[2022-01-03 06:03] LABS: Alanine Aminotransferase 19 U/L (6-50); Albumin Level 2.5 g/dL (3.5-5.1); Alkaline Phosphatase 121 U/L (38-126); Anion Gap 3 mmol/L (8-16); Aspartate Amino Transferase 62 U/L (17-59); Bilirubin,Total 0.3 mg/dL (0.2-1.3); Blood Urea Nitrogen 9 mg/dL (9-20); Calcium 7.8 mg/dL (8.4-10.2); Carbon Dioxide 15 mmol/L (22-30); Chloride 116 mmol/L (98-107); Estimated CRCL calculation 69 ml/min; Estimated Glomerular Filt Rate > 60; Glucose 91 mg/dL (65-110); Potassium 3.5 mmol/L (3.4-5.0); Sodium 134 mmol/L (137-145)
[2022-01-03] MEDS: FERROUS SULFATE 324 MG TABLET PO ×2 (08:10→17:28)
[2022-01-03] MEDS: PANTOPRAZOLE 40 MG TABLET PO ×2 (08:10→17:28)
--- NOTE | 2022-01-03 08:52 | PM.IMPN ---
Progress Note: A&P Assessment and Plan (1) UTI (urinary tract infection): Qualifiers: Hematuria presence: with hematuria Urinary tract infection type: site unspecified Qualified Code(s): N39.0 - Urinary tract infection, site not specified; R31.9 - Hematuria, unspecified Code(s): N39.0 - Urinary tract infection, site not specified Status: Acute Assessment and Plan: -continue current antibiotics Ancef q.12 hours for coverage of both urine as well as skin abscess. -await urine culture report for sensitivity. -monitor daily labs and vital signs. (2) Weakness: Code(s): R53.1 - Weakness Status: Acute Assessment and Plan: -generalized weakness without focal deficit. -could be secondary to current UTI vs toy anal abscess -monitor daily labs and vital signs. -PT and OT evaluation. -initiate fall precautions. (3) Acute kidney failure: Qualifiers: Acute renal failure type: unspecified Qualified Code(s): N17.9 - Acute kidney failure, unspecified Code(s): N17.9 - Acute kidney failure, unspecified Status: Acute Assessment and Plan: -etiology infection versus dehydration versus kidney disease. Suspect prerenal -IV fluids of normal saline at 125 ml per hour. -patient's past history says there is a history of heart failure. Echo ordered and shows EF of 65-70% -Avoid Nephrotoxic medications. Held Lasix and Spironolactone but these were restarted now that renal function is WNL -Resolved (4) Abscess: Code(s): L02.91 - Cutaneous abscess, unspecified Status: Acute Assessment and Plan: -toy anal abscess spontaneously draining -wound culture ordered -continue IV antibiotics of Ancef q.12. -seen by wound care who recommended surgical consult -general surgery consulted for further recommendations. Spoke w/ Dr. Avalos today who states no CT necessary at this time. Pt need to have wound cleaned and packed after every bowel movement. (5) Hyperkalemia: Code(s): E87.5 - Hyperkalemia Status: Acute Assessment and Plan: - Marginal elevation at 5.1. - Continue IVF and monitor daily labs and VS. -held supplemental potassium. -resolved, resume KCL supplement and lasix Subjective Date/time seen: 01/03/22 08:52 Interval history: 61-year-old male patient with significant past medical history of congestive heart failure, cirrhotic liver disease, depression, diarrhea, fatigue, GI bleed, hypokalemia, metabolic acidosis, poor appetite, schizophrenia, history of weight loss and a decubitus ulcer to his buttock, who presented to the hospital for generalized weakness. Having more rectal pain today. No N/V/abd pain. No cp/sob. Still weak. Review of Systems Review of Systems: All systems reviewed & are unremarkable except as noted in HPI and below Exam Narrative: General: No acute distress, non toxic appearing Eyes: PERRL, no scleral icterus HEENT: NCAT, external ears normal, MMM Respiratory: No respiratory distress, Lungs CTA bilaterally, no wheezing Cardiovascular: RRR, no murmur Abdominal: Soft, nontender, non distended, no rebound or guarding Musculoskeletal: Moves all 4 extremities, no edema Neurological: A/Ox3, speech clear, no facial asymmetry Skin: Warm, dry, toy anal wound not examined as it was just evaluated by general surgery and packed by civil manager: Normal affect, normal mood Objective Data Vital Signs Vital Signs: Vital Signs - 24 hr 01/02/22 10:09 01/02/22 13:55 01/02/22 17:57 Temperature 98.4 F Pulse Rate 62 72 Respiratory Rate 16 Blood Pressure 140/67 Pulse Oximetry 99 Oxygen Delivery Room Air 01/02/22 19:24 01/02/22 19:47 01/03/22 04:17 Temperature 98.2 F 97.6 F Pulse Rate 66 69 Respiratory Rate 16 16 Blood Pressure 125/69 131/68 Pulse Oximetry 99 97 Oxygen Delivery Room Air 01/03/22 08:20 Temperature Pulse Rate Re
[2022-01-03] MEDS: HYDROcodone/acetaminophen (*CRX) 10-325 MG TABLET 1 TAB PO ×3 (10:53→21:52)
[2022-01-03 14:08] VITALS: BP 115/66; PULSE 60; RESP 16; TEMP 37.1; O2SAT 99
[2022-01-03] MEDS: FAMOTIDINE 20 MG TABLET 40 MG PO (17:28)
[2022-01-03] MEDS: POTASSIUM CHLORIDE 20 MEQ TABLET.ER 40 MEQ PO (17:28)
[2022-01-03] MEDS: FLUTICASONE PROPIONATE 0.05% NA SPR 16 GM BTL (*BKC) 2 SPRAY NASAL (17:28)
[2022-01-03 17:29] VITALS: PULSE 72
[2022-01-03] MEDS: FUROSEMIDE 20 MG TABLET PO (17:29)
[2022-01-03] MEDS: FOLIC ACID 1 MG TABLET PO (17:29)
[2022-01-03] MEDS: nadoloL 20 MG TABLET PO (17:29)
[2022-01-03] MEDS: SPIRONOLACTONE 50 MG TABLET PO (17:29)
--- NOTE | 2022-01-03 17:44 | PM.PNGS ---
Progress Note: A&P Assessment and Plan (1) Abscess: Code(s): L02.91 - Cutaneous abscess, unspecified Status: Acute Assessment and Plan: This appears to be a toy-anal abscess that is draining already. For now I don't think we need to do a pelvic CT. I recommend that in view of his incontinence, that we try to repack the opening of the now draining toy-anal abscess each time the nurses changes his adult diaper. Continue the current antibiotics. (2) Weakness: Code(s): R53.1 - Weakness Status: Acute Assessment and Plan: Add appropriate nutition supplements. (3) Esophageal varices without bleeding: Code(s): I85.00 - Esophageal varices without bleeding Status: Acute Assessment and Plan: Watch for bleeding and if needed get GI to see pt. (4) Alcoholic cirrhosis of liver with ascites: Code(s): K70.31 - Alcoholic cirrhosis of liver with ascites Status: Acute Assessment and Plan: Resume Aldactone or sprironolactone when his kidney function is better. (5) Schizophrenia: Qualifiers: Schizophrenia type: unspecified Qualified Code(s): F20.9 - Schizophrenia, unspecified Code(s): F20.9 - Schizophrenia, unspecified Status: Acute Assessment and Plan: Continue current meds Additional Plan Pt believes he is incontinent possibly due to a side effect on one of his meds. Let's hold his Vit B1 for a week and see what happens. Subjective Subjective Date/Time Seen: 01/03/22 17:44 Patient lying in bed when I entered the room. He had just received a pain pill according to his nurse. He felt like he was having a bowel movement. He states that he has been incontinent and blames one of his pills for that. However while we were in the room he states that he felt as if this stool was passing and he was correct. See exam below. He feels either spironolactone or his B1 vitamin may be causing his incontinence although I think this is far fetched. I do not think it will hurt to temporarily stop his B12 and see if he improves. Review of Systems Review of Systems: All systems reviewed & are unremarkable except as noted in HPI and below Constitutional: Constitutional: Reports as per HPI, Denies chills and Denies fever(s) Cardiovascular: Cardiovascular: Denies chest pain and Denies dyspnea Respiratory: Respiratory: Reports no additional respiratory complaints and Denies dyspnea Gastrointestinal: Gastrointestinal: Reports as per HPI and Denies bloating Neurologic: Denies memory loss Psychiatric: Psychiatric: Denies memory loss Exam Const: General: cooperative, comfortable, alert and awake Orientation/consciousness: patient oriented x3 HENMT: Head: normal to inspection Mouth: Yes moist mucous membranes Eyes: Sclera: sclerae normal Pupils: Equal, round and reactive pupils present Neck: Neck: normal visual inspection and no JVD Chest: Chest palpation & inspection: normal inspection of the chest Resp: Effort & Inspection: normal respiratory effort Auscultation: clear to auscultation bilaterally GI: Other: External anal exam reveals no obvious external hemorrhoids at this time but an opening to the suspected perianal abscess on the left toy-anal area. This was examined with his nurse and I repacked the 1.5 cm abscess cavity which tunnels toward his scrotum. Neuro: General: patient oriented x3 Cranial nerves: Yes Equal, round and reactive pupils present Objective Data Vital Signs Vital Signs: Vital Signs - 24 hr 01/02/22 17:57 01/02/22 19:24 01/02/22 19:47 Temperature 36.8 C Pulse Rate 72 66 Respiratory Rate 16 Blood Pressure 125/69 Pulse Oximetry 99 Oxygen Delivery Room Air 01/03/22 04:17 01/03/22 08:20 01/03/22 14:08 Temperature 36.4 C 37.1 C Pulse Rate 69 60 Respiratory Rate 16 16 Blood Pressure 131/68 115/66 Pulse Oximetry 97 99 Oxygen Delivery Room Air 01/03/22 17:29 Temperature
[2022-01-03 19:30] VITALS: BP 131/69; PULSE 68; RESP 18; TEMP 36.9; O2SAT 99
[2022-01-03] MEDS: traZODone HCL 50 MG TABLET 100 MG PO (21:54)
[2022-01-03] MEDS: MIRTAZAPINE 15 MG TABLET PO (21:54)
[2022-01-03 22:07] VITALS: O2SAT 96
[2022-01-04] MEDS: ceFAZolin 500 MG in DEXTROSE 5% IN WATER 50 ML 100 MG IVPB (02:52)
[2022-01-04 04:34] VITALS: BP 127/73; PULSE 62; RESP 18; TEMP 36.6; O2SAT 100
[2022-01-04 05:57] LABS: Basophils Percent Auto 0.3 % (0.2-1.2); Eosinophils Percent Auto 0.6 % (0-4.4); Hematocrit 30.6 % (42.0-52.0); Hemoglobin 10.3 g/dL (14.0-18.0); Immature Granulocyte Absolute 0.03 K/mm3 (0.00-0.031); Immature Granulocyte Percent A 0.9 % (0-0.5); Immature Platelet Fraction Pct 4.7 % (0.9-11.2); Lymphocytes Absolute Auto 1.05 K/mm3 (0.9-3.2); Lymphocytes Percent Auto 32.2 % (18.3-44.2); Mean Corpuscular HGB Conc 33.7 g/dl (32-36); Mean Corpuscular Hemoglobin 32.5 pg (26-34); Mean Corpuscular Volume 96.5 fl (80-100); Mean Platelet Volume 10.6 fl (7.4-10.4); Monocytes Absolute Auto 0.4 K/mm3 (0.1-0.6); Neutrophils Absolute Auto 1.8 K/mm3 (1.3-6.7); Platelet Count Result 102 k/mm3 (150-375); Red Blood Count 3.17 M/mm3 (4.6-6.20); Red Cell Distribution Width 15.5 % (11.5-14.5); White Blood Count 3.3 K/mm3 (4.5-10.0)
[2022-01-04 06:12] LABS: Anion Gap 4 mmol/L (8-16); Blood Urea Nitrogen 7 mg/dL (9-20); Calcium 7.4 mg/dL (8.4-10.2); Carbon Dioxide 15 mmol/L (22-30); Chloride 115 mmol/L (98-107); Estimated CRCL calculation 73 ml/min; Estimated Glomerular Filt Rate > 60; Glucose 96 mg/dL (65-110); Sodium 134 mmol/L (137-145)
[2022-01-04] MEDS: HEPARIN SODIUM 5,000 UNITS/ML VIAL 5000 UNITS SUB-Q (06:18)
[2022-01-04] MEDS: SODIUM CHLORIDE 0.9% IV 1,000 ML 125 ML IV CONT (06:18)
[2022-01-04] MEDS: HYDROcodone/acetaminophen (*CRX) 5-325 MG TABLET 1 TAB PO (07:00)
[2022-01-04] MEDS: POTASSIUM CHLORIDE 20 MEQ TABLET.ER 40 MEQ PO ×2 (08:41→17:18)
[2022-01-04] MEDS: FERROUS SULFATE 324 MG TABLET PO ×2 (08:41→17:18)
[2022-01-04] MEDS: PANTOPRAZOLE 40 MG TABLET PO ×2 (08:41→17:18)
--- NOTE | 2022-01-04 09:22 | PCPTNOTE ---
Pt declined treatment at this time; stating that he already did therapy yesterday and he just wants to take a nap. Will continue per plan of care.
--- NOTE | 2022-01-04 11:08 | PM.IMPN ---
Progress Note: A&P Assessment and Plan (1) UTI (urinary tract infection): Qualifiers: Hematuria presence: with hematuria Urinary tract infection type: site unspecified Qualified Code(s): N39.0 - Urinary tract infection, site not specified; R31.9 - Hematuria, unspecified Code(s): N39.0 - Urinary tract infection, site not specified Status: Acute Assessment and Plan: -started on Ancef q.12 hours for coverage of both urine as well as skin abscess. -urine culture grew serratia marcescens, resistant to Ancef, switched to Rocephin/Vanc to cover UTI and abscess (2) Weakness: Code(s): R53.1 - Weakness Status: Acute Assessment and Plan: -generalized weakness without focal deficit. -could be secondary to current UTI vs toy anal abscess -monitor daily labs and vital signs. -PT and OT evaluation. -initiate fall precautions. (3) Acute kidney failure: Qualifiers: Acute renal failure type: unspecified Qualified Code(s): N17.9 - Acute kidney failure, unspecified Code(s): N17.9 - Acute kidney failure, unspecified Status: Acute Assessment and Plan: -etiology infection versus dehydration versus kidney disease. Suspect prerenal -IVF hydration -patient's past history says there is a history of heart failure. Echo ordered and shows EF of 65-70% -Avoid Nephrotoxic medications. Held Lasix and Spironolactone but these were restarted now that renal function is WNL -Resolved (4) Abscess: Code(s): L02.91 - Cutaneous abscess, unspecified Status: Acute Assessment and Plan: -toy anal abscess spontaneously draining -wound culture ordered -continue IV antibiotics -seen by wound care who recommended surgical consult -general surgery consulted for further recommendations. Spoke w/ Dr. Avalos today who states no CT necessary at this time. Pt need to have wound cleaned and packed after every bowel movement. -Discussed case with care coordination regarding placement. Pt needs help packing abscess after each bowel movement. Unable to do it himself and does not have anyone who can help at home. (5) Hyperkalemia: Code(s): E87.5 - Hyperkalemia Status: Acute Assessment and Plan: -Marginal elevation at 5.1. - Continue IVF and monitor daily labs and VS. -held supplemental potassium initially -resolved, resume KCL supplement and lasix Subjective Date/time seen: 01/04/22 11:08 Interval history: 61-year-old male patient with significant past medical history of congestive heart failure, cirrhotic liver disease, depression, diarrhea, fatigue, GI bleed, hypokalemia, metabolic acidosis, poor appetite, schizophrenia, history of weight loss and a decubitus ulcer to his buttock, who presented to the hospital for generalized weakness. Still some rectal pain. No N/V/abd pain. No cp/sob. Still weak. Review of Systems Review of Systems: All systems reviewed & are unremarkable except as noted in HPI and below Exam Narrative: General: No acute distress, non toxic appearing Eyes: PERRL, no scleral icterus HEENT: NCAT, external ears normal, MMM Respiratory: No respiratory distress, Lungs CTA bilaterally, no wheezing Cardiovascular: RRR, no murmur Abdominal: Soft, nontender, non distended, no rebound or guarding Musculoskeletal: Moves all 4 extremities, no edema Neurological: A/Ox3, speech clear, no facial asymmetry Skin: Warm, dry, toy anal wound not examined as it was just evaluated by general surgery and packed by asphalt screed operator: Normal affect, normal mood Objective Data Vital Signs Vital Signs: Vital Signs - 24 hr 01/03/22 14:08 01/03/22 17:29 01/03/22 19:30 Temperature 98.7 F 98.4 F Pulse Rate 60 72 68 Respiratory Rate 16 18 Blood Pressure 115/66 131/69 Pulse Oximetry 99 99 Oxygen Delivery 01/03/22 20:00 01/03/22 22:07 01/04/22 04:34 Temperature 98 F Pulse Rate 62 R
--- NOTE | 2022-01-04 12:52 | PM.PNGS ---
Progress Note: A&P Assessment and Plan (1) Abscess: Code(s): L02.91 - Cutaneous abscess, unspecified Status: Acute Assessment and Plan: This appears to be a toy-anal abscess that is draining already. For now I don't think we need to do a pelvic CT. I recommend that in view of his incontinence, that we try to repack the opening of the now draining toy-anal abscess each time the nurses changes his adult diaper. Continue the current antibiotics. (2) Weakness: Code(s): R53.1 - Weakness Status: Acute Assessment and Plan: Add appropriate nutition supplements. (3) Esophageal varices without bleeding: Code(s): I85.00 - Esophageal varices without bleeding Status: Acute Assessment and Plan: Watch for bleeding and if needed get GI to see pt. (4) Alcoholic cirrhosis of liver with ascites: Code(s): K70.31 - Alcoholic cirrhosis of liver with ascites Status: Acute Assessment and Plan: Resume Aldactone or sprironolactone when his kidney function is better. (5) Schizophrenia: Qualifiers: Schizophrenia type: unspecified Qualified Code(s): F20.9 - Schizophrenia, unspecified Code(s): F20.9 - Schizophrenia, unspecified Status: Acute Assessment and Plan: Continue current meds Additional Plan Pt believes he is incontinent possibly due to a side effect on one of his meds. Let's hold his Vit B1 for a week and see what happens. I discussed with the patient his previous colon surgery and possible anal fistula. These were cared for at [place] by Dr. Mando Siegel. I would recommend outpatient referral for follow-up there to have anal rectal manometry and further testing to see if his incontinence is permanent or could be corrected with surgery. ( Outpatient Colorectal surgery referral is recommended closed). Subjective Subjective Date/Time Seen: 01/04/22 09:52 Patient laying in bed on I entered the room. He is not sure yet who would help him packed the open abscess near the anal opening. He is still incontinent and this will need to probably be done 4 times a day routinely. Of course if there is no bowel movement when checked packing could be skipped until the next time there is a bowel movement. Patient states he lives with his nephew was at home very much. It is unclear to me whether he is willing to change his home environment and move summer or not. He states he does feel better than when you got admitted. He feels stronger he feels like he has some appetite and he does not have as much pain. Review of Systems Constitutional: Constitutional: Reports as per HPI, Reports no additional constitutional complaints, Denies chills, Reports fatigue, Denies fever(s) and Denies malaise Gastrointestinal: Gastrointestinal: Reports as per HPI, Denies bloating, Denies hematochezia, Denies change in bowel habits and Denies heartburn Neurologic: Reports Normal hearing present, Denies dizziness and Denies seizure-like activity Exam Const: General: cooperative, comfortable, alert and awake HENMT: Head: normal to inspection Mouth: Yes moist mucous membranes GI: Other: External anal exam reveals no obvious external hemorrhoids at this time but an opening to the suspected perianal abscess on the left toy-anal area. This was examined with his nurse and I repacked the 1.5 cm abscess cavity which tunnels toward his scrotum. Objective Data Vital Signs Vital Signs: Vital Signs - 24 hr 01/03/22 14:08 01/03/22 17:29 01/03/22 19:30 Temperature 37.1 C 36.9 C Pulse Rate 60 72 68 Respiratory Rate 16 18 Blood Pressure 115/66 131/69 Pulse Oximetry 99 99 Oxygen Delivery 01/03/22 20:00 01/03/22 22:07 01/04/22 04:34 Temperature 36.6 C Pulse Rate 62 Respiratory Rate 18 Blood Pressure 127/73 Pulse Oximetry 96 100 Oxygen Delivery Room Air Room Air 01/04/22 08:45 Temperature Pulse Rate Respiratory Rate Blood Press
[2022-01-04] MEDS: HYDROcodone/acetaminophen (*CRX) 10-325 MG TABLET 1 TAB PO ×2 (13:16→21:06)
[2022-01-04 14:00] VITALS: BP 117/73; PULSE 69; RESP 16; TEMP 37.6; O2SAT 99
[2022-01-04] MEDS: FLUTICASONE PROPIONATE 0.05% NA SPR 16 GM BTL (*BKC) 2 SPRAY NASAL (17:18)
[2022-01-04] MEDS: FAMOTIDINE 20 MG TABLET 40 MG PO (17:18)
[2022-01-04] MEDS: FUROSEMIDE 20 MG TABLET PO (17:18)
[2022-01-04 17:19] VITALS: PULSE 86
[2022-01-04] MEDS: SPIRONOLACTONE 50 MG TABLET PO (17:19)
[2022-01-04] MEDS: nadoloL 20 MG TABLET PO (17:19)
[2022-01-04] MEDS: FOLIC ACID 1 MG TABLET PO (17:19)
[2022-01-04 20:04] VITALS: BP 121/61; PULSE 84; RESP 20; TEMP 36.6; O2SAT 99
[2022-01-04] MEDS: MIRTAZAPINE 15 MG TABLET PO (21:01)
[2022-01-04] MEDS: traZODone HCL 50 MG TABLET 100 MG PO (21:01)
[2022-01-05 05:31] VITALS: BP 111/72; PULSE 74; RESP 16; TEMP 36.7; O2SAT 100
[2022-01-05] MEDS: HYDROcodone/acetaminophen (*CRX) 10-325 MG TABLET 1 TAB PO ×3 (05:40→20:00)
[2022-01-05 05:51] LABS: Basophils Percent Auto 0.2 % (0.2-1.2); Eosinophils Percent Auto 0.9 % (0-4.4); Hematocrit 33.8 % (42.0-52.0); Hemoglobin 11.3 g/dL (14.0-18.0); Immature Granulocyte Absolute 0.03 K/mm3 (0.00-0.031); Immature Granulocyte Percent A 0.6 % (0-0.5); Immature Platelet Fraction Pct 6.8 % (0.9-11.2); Mean Corpuscular HGB Conc 33.4 g/dl (32-36); Mean Corpuscular Hemoglobin 32.5 pg (26-34); Mean Corpuscular Volume 97.1 fl (80-100); Mean Platelet Volume 11.4 fl (7.4-10.4); Monocytes Absolute Auto 0.4 K/mm3 (0.1-0.6); Monocytes Percent Auto 8.4 % (2.6-8.5); Neutrophils Absolute Auto 2.9 K/mm3 (1.3-6.7); Neutrophils Percent Auto 61.9 % (45.5-73.1); Platelet Count Result 100 k/mm3 (150-375); Red Blood Count 3.48 M/mm3 (4.6-6.20); Red Cell Distribution Width 15.4 % (11.5-14.5); White Blood Count 4.7 K/mm3 (4.5-10.0)
[2022-01-05 05:56] LABS: Anion Gap 5 mmol/L (8-16); Blood Urea Nitrogen 6 mg/dL (9-20); Calcium 7.8 mg/dL (8.4-10.2); Carbon Dioxide 19 mmol/L (22-30); Chloride 109 mmol/L (98-107); Estimated CRCL calculation 82 ml/min; Estimated Glomerular Filt Rate > 60; Glucose 90 mg/dL (65-110); Potassium 3.7 mmol/L (3.4-5.0); Sodium 133 mmol/L (137-145)
--- NOTE | 2022-01-05 08:12 | PM.IMPN ---
Progress Note: A&P Assessment and Plan (1) UTI (urinary tract infection): Qualifiers: Hematuria presence: with hematuria Urinary tract infection type: site unspecified Qualified Code(s): N39.0 - Urinary tract infection, site not specified; R31.9 - Hematuria, unspecified Code(s): N39.0 - Urinary tract infection, site not specified Status: Acute Assessment and Plan: -started on Ancef q.12 hours for coverage of both urine as well as skin abscess. -urine culture grew serratia marcescens, resistant to Ancef, switched to Rocephin/Vanc to cover UTI and abscess (2) Weakness: Code(s): R53.1 - Weakness Status: Acute Assessment and Plan: -generalized weakness without focal deficit. -could be secondary to current UTI vs toy anal abscess -monitor daily labs and vital signs. -PT and OT evaluation. -initiate fall precautions. (3) Acute kidney failure: Qualifiers: Acute renal failure type: unspecified Qualified Code(s): N17.9 - Acute kidney failure, unspecified Code(s): N17.9 - Acute kidney failure, unspecified Status: Acute Assessment and Plan: -etiology infection versus dehydration versus kidney disease. Suspect prerenal -IVF hydration -patient's past history says there is a history of heart failure. Echo ordered and shows EF of 65-70% -Avoid Nephrotoxic medications. Held Lasix and Spironolactone but these were restarted now that renal function is WNL -Resolved (4) Abscess: Code(s): L02.91 - Cutaneous abscess, unspecified Status: Acute Assessment and Plan: -toy anal abscess spontaneously draining -wound culture grew group F strep, had to call lab to ask for sensitivities -continue IV antibiotics -seen by wound care who recommended surgical consult -general surgery consulted for further recommendations. Spoke w/ Dr. Avalos today who states no CT necessary at this time. Pt need to have wound cleaned and packed after every bowel movement. -Discussed case with care coordination regarding placement. Pt needs help packing abscess after each bowel movement. Unable to do it himself and does not have anyone who can help at home. (5) Hyperkalemia: Code(s): E87.5 - Hyperkalemia Status: Acute Assessment and Plan: -Marginal elevation at 5.1. - Continue IVF and monitor daily labs and VS. -held supplemental potassium initially -resolved, resume KCL supplement and lasix Subjective Date/time seen: 01/05/22 08:12 Interval history: 61-year-old male patient with significant past medical history of congestive heart failure, cirrhotic liver disease, depression, diarrhea, fatigue, GI bleed, hypokalemia, metabolic acidosis, poor appetite, schizophrenia, history of weight loss and a decubitus ulcer to his buttock, who presented to the hospital for generalized weakness. Still some rectal pain. No N/V/abd pain. No cp/sob. Still weak. Refusing further heparin/lovenox shots. Will switch to SCDs. Review of Systems Review of Systems: All systems reviewed & are unremarkable except as noted in HPI and below Exam Narrative: General: No acute distress, non toxic appearing Eyes: PERRL, no scleral icterus HEENT: NCAT, external ears normal, MMM Respiratory: No respiratory distress, Lungs CTA bilaterally, no wheezing Cardiovascular: RRR, no murmur Abdominal: Soft, nontender, non distended, no rebound or guarding Musculoskeletal: Moves all 4 extremities, no edema Neurological: A/Ox3, speech clear, no facial asymmetry Skin: Warm, dry, toy anal wound not examined as it was just evaluated by general surgery and packed by manager money: odd affect, normal mood Objective Data Vital Signs Vital Signs: Vital Signs - 24 hr 01/04/22 08:45 01/04/22 14:00 01/04/22 17:19 Temperature 99.6 F Pulse Rate 69 86 Respiratory Rate 16 Blood Pressure 117/73 Pulse Oximetry 99 Oxygen Delivery
[2022-01-05] MEDS: FERROUS SULFATE 324 MG TABLET PO ×2 (08:51→17:13)
[2022-01-05] MEDS: PANTOPRAZOLE 40 MG TABLET PO ×2 (08:52→17:16)
[2022-01-05] MEDS: POTASSIUM CHLORIDE 20 MEQ TABLET.ER 40 MEQ PO ×2 (08:52→17:16)
--- NOTE | 2022-01-05 10:56 | PC.NURSE ---
An/Sqq 89(V)15 [employer] System Journeyman agrees with assessment of Nieves Kaur RN
--- NOTE | 2022-01-05 13:01 | PM.PNGS ---
Progress Note: A&P Assessment and Plan (1) Abscess: Code(s): L02.91 - Cutaneous abscess, unspecified Status: Acute Assessment and Plan: Perianal abscess that spontaneously drained with a small opening that allows for packing. Would continue packing with 1/4 iodoform daily and as needed if soiled. IV antibiotics switched due to urine culture results, now on Rocephin and Vancomycin, which would still cover for the abscess. Abscess culture results show Group F strep and sensitivities were requested by the Hospitalist today, pending. Patient unable to pack this area independently due to the location and does not have anyone to help this be done adequately at home. Therefore, CC is working on SNF placement for discharge for his wound care. Would still recommend outpatient follow-up with Colorectal Surgery at [place]. (2) Weakness: Code(s): R53.1 - Weakness Status: Acute Assessment and Plan: Improving. (3) Esophageal varices without bleeding: Code(s): I85.00 - Esophageal varices without bleeding Status: Acute Assessment and Plan: Watch for bleeding and if needed get GI to see pt. (4) Alcoholic cirrhosis of liver with ascites: Code(s): K70.31 - Alcoholic cirrhosis of liver with ascites Status: Acute (5) Schizophrenia: Qualifiers: Schizophrenia type: unspecified Qualified Code(s): F20.9 - Schizophrenia, unspecified Code(s): F20.9 - Schizophrenia, unspecified Status: Acute Additional Plan I have discussed the patient's case and plan of care with Dr. Avalos. Subjective Subjective Date/Time Seen: 01/05/22 13:01 Patient reports: flatus, no bowel movement (today) and afebrile Interval history: This is a 61 yo M who presented with complaints of weakness. He was found to have a UTI and perianal abscess that is already spontaneously draining. Chart reviewed. Patient seen and examined with the nurse. He denies any BM yet today, so his dressing has not been changed. He denies any perianal pain, only feels it is tender when packed. I noticed a small lump on his right lateral neck. He reports this has been there for a long time, but feels it has become more swollen recently. No other complaints at this time. Review of Systems Review of Systems: All systems reviewed & are unremarkable except as noted in HPI and below Exam Const: General: comfortable and awake Orientation/consciousness: patient oriented x3 HENMT: Head images: 1. 2 cm nodule on the right lateral neck with a punctate area in the center, this is fluctuant and has slight pink discoloration, mildly tender on palpation, no drainage GI: Other: Nurse at the bedside for exam. External anal exam reveals a small opening anterior and slightly left of midline to the anal opening with purulent drainage noted. Packing removed. The opening was probed with a long Q-tip and appears to be tracking towards the scrotum about 2-3 cm. Still a small area of induration around the opening. New packing and dressing applied. : Penis: Yes Localized penile swelling present Scrotum: scrotal swelling diffuse Objective Data Vital Signs Vital Signs: Vital Signs - 24 hr 01/04/22 14:00 01/04/22 17:19 01/04/22 20:04 Temperature 99.6 F 98 F Pulse Rate 69 86 84 Respiratory Rate 16 20 Blood Pressure 117/73 121/61 Pulse Oximetry 99 99 Oxygen Delivery 01/04/22 21:20 01/05/22 05:31 Temperature 98.1 F Pulse Rate 74 Respiratory Rate 16 Blood Pressure 111/72 Pulse Oximetry 100 Oxygen Delivery Room Air Intake/Output Intake/Output: Intake & Output 01/02/22 01/03/22 01/04/22 01/05/22 23:59 23:59 23:59 23:59 Intake Total 3540 4614 2360 885 Output Total 1250 1220 3400 200 Balance 2290 3394 -1040 685 Meds/Results Medications: Active Medications Generic Name Dose Route Start Last Admin Trade Name Freq PRN Reason Stop Dose Admin Acetaminophen 650 mg 01/03/22 08
[2022-01-05 13:56] VITALS: BP 99/55; PULSE 65; RESP 14; TEMP 37.1; O2SAT 98
[2022-01-05] MEDS: FAMOTIDINE 20 MG TABLET 40 MG PO (17:16)
[2022-01-05] MEDS: FLUTICASONE PROPIONATE 0.05% NA SPR 16 GM BTL (*BKC) 2 SPRAY NASAL (17:17)
[2022-01-05] MEDS: FOLIC ACID 1 MG TABLET PO (17:17)
[2022-01-05 17:18] VITALS: PULSE 68
[2022-01-05] MEDS: FUROSEMIDE 20 MG TABLET PO (17:18)
[2022-01-05] MEDS: SPIRONOLACTONE 50 MG TABLET PO (17:18)
[2022-01-05] MEDS: nadoloL 20 MG TABLET PO (17:18)
[2022-01-05] MEDS: traZODone HCL 50 MG TABLET 100 MG PO (20:00)
[2022-01-05] MEDS: MIRTAZAPINE 15 MG TABLET PO (20:01)
[2022-01-05 20:30] VITALS: BP 100/60; PULSE 72; RESP 16; TEMP 36.4; O2SAT 99
[2022-01-06 05:04] VITALS: BP 111/69; PULSE 69; RESP 16; TEMP 36.4; O2SAT 100
[2022-01-06 05:34] LABS: Basophils Percent Auto 0.4 % (0.2-1.2); Eosinophils Absolute Auto 0.1 K/mm3 (0-0.3); Eosinophils Percent Auto 1.7 % (0-4.4); Hematocrit 33.2 % (42.0-52.0); Hemoglobin 10.8 g/dL (14.0-18.0); Immature Granulocyte Absolute 0.02 K/mm3 (0.00-0.031); Immature Granulocyte Percent A 0.4 % (0-0.5); Immature Platelet Fraction Pct 7.3 % (0.9-11.2); Lymphocytes Absolute Auto 1.27 K/mm3 (0.9-3.2); Lymphocytes Percent Auto 26.8 % (18.3-44.2); Mean Corpuscular HGB Conc 32.5 g/dl (32-36); Mean Corpuscular Volume 98.2 fl (80-100); Mean Platelet Volume 11.1 fl (7.4-10.4); Monocytes Absolute Auto 0.4 K/mm3 (0.1-0.6); Monocytes Percent Auto 9.3 % (2.6-8.5); Neutrophils Absolute Auto 2.9 K/mm3 (1.3-6.7); Neutrophils Percent Auto 61.4 % (45.5-73.1); Platelet Count Result 107 k/mm3 (150-375); Red Blood Count 3.38 M/mm3 (4.6-6.20); Red Cell Distribution Width 15.7 % (11.5-14.5); White Blood Count 4.7 K/mm3 (4.5-10.0)
[2022-01-06 05:39] LABS: Anion Gap 4 mmol/L (8-16); Blood Urea Nitrogen 8 mg/dL (9-20); Calcium 8.1 mg/dL (8.4-10.2); Carbon Dioxide 25 mmol/L (22-30); Chloride 107 mmol/L (98-107); Estimated CRCL calculation 75 ml/min; Estimated Glomerular Filt Rate > 60; Glucose 86 mg/dL (65-110); Potassium 3.8 mmol/L (3.4-5.0); Sodium 136 mmol/L (137-145)
--- NOTE | 2022-01-06 08:15 | PM.IMPN ---
Progress Note: A&P Assessment and Plan (1) UTI (urinary tract infection): Qualifiers: Hematuria presence: with hematuria Urinary tract infection type: site unspecified Qualified Code(s): N39.0 - Urinary tract infection, site not specified; R31.9 - Hematuria, unspecified Code(s): N39.0 - Urinary tract infection, site not specified Status: Acute Assessment and Plan: -started on Ancef q.12 hours for coverage of both urine as well as skin abscess. -urine culture grew serratia marcescens, resistant to Ancef, switched to Rocephin/Vanc to cover UTI and abscess (2) Weakness: Code(s): R53.1 - Weakness Status: Acute Assessment and Plan: -generalized weakness without focal deficit. -could be secondary to current UTI vs toy anal abscess -monitor daily labs and vital signs. -PT and OT evaluation. -fall precautions. (3) Acute kidney failure: Qualifiers: Acute renal failure type: unspecified Qualified Code(s): N17.9 - Acute kidney failure, unspecified Code(s): N17.9 - Acute kidney failure, unspecified Status: Acute Assessment and Plan: -etiology infection versus dehydration versus kidney disease. Suspect prerenal -IVF hydration -patient's past history says there is a history of heart failure. Echo ordered and shows EF of 65-70% -Avoid Nephrotoxic medications. Held Lasix and Spironolactone but these were restarted now that renal function is WNL -Resolved (4) Abscess: Code(s): L02.91 - Cutaneous abscess, unspecified Status: Acute Assessment and Plan: -toy anal abscess spontaneously draining -wound culture grew group F strep, had to call lab to ask for sensitivities, should get them by tomorrow -continue IV antibiotics -seen by wound care who recommended surgical consult -general surgery consulted for further recommendations. Spoke w/ Dr. Avalos today who states no CT necessary at this time. Pt need to have wound cleaned and packed after every bowel movement. -Discussed case with care coordination regarding placement. Pt needs help packing abscess after each bowel movement. Unable to do it himself and does not have anyone who can help at home. (5) Hyperkalemia: Code(s): E87.5 - Hyperkalemia Status: Acute Assessment and Plan: -Marginal elevation at 5.1. - Continue IVF and monitor daily labs and VS. -held supplemental potassium initially -resolved, resume KCL supplement and lasix Subjective Date/time seen: 01/06/22 08:15 Interval history: 61-year-old male patient with significant past medical history of congestive heart failure, cirrhotic liver disease, depression, diarrhea, fatigue, GI bleed, hypokalemia, metabolic acidosis, poor appetite, schizophrenia, history of weight loss and a decubitus ulcer to his buttock, who presented to the hospital for generalized weakness. Feels fine. Wavers back and forth on being willing to go to SNF. Odd affect and does not seem to always comprehend the plan when we discuss in detail. No complaints currently. Only has rectal pain with packing changes. No N/V. Review of Systems Review of Systems: All systems reviewed & are unremarkable except as noted in HPI and below Exam Narrative: General: No acute distress, non toxic appearing Eyes: PERRL, no scleral icterus HEENT: NCAT, external ears normal, MMM Respiratory: No respiratory distress, Lungs CTA bilaterally, no wheezing Cardiovascular: RRR, no murmur Abdominal: Soft, nontender, non distended, no rebound or guarding Musculoskeletal: Moves all 4 extremities, no edema Neurological: A/Ox3, speech clear, no facial asymmetry Skin: Warm, dry, toy anal wound not examined as it was just evaluated by general surgery and packed by independent sales representative: odd affect, normal mood Objective Data Vital Signs Vital Signs: Vital Signs - 24 hr 01/05/22 13:56 01/05/22 17:18 01/05/22 20:30 Tem
[2022-01-06] MEDS: HYDROcodone/acetaminophen (*CRX) 5-325 MG TABLET 1 TAB PO (08:28)
[2022-01-06] MEDS: POTASSIUM CHLORIDE 20 MEQ TABLET.ER 40 MEQ PO ×2 (08:30→17:13)
[2022-01-06] MEDS: PANTOPRAZOLE 40 MG TABLET PO ×2 (08:30→17:14)
[2022-01-06] MEDS: FERROUS SULFATE 324 MG TABLET PO ×2 (08:30→17:13)
[2022-01-06 14:10] LABS: Vancomycin Trough 10.4 ug/mL (10.0-20.0)
[2022-01-06 14:25] VITALS: BP 106/71; PULSE 67; RESP 14; TEMP 36.9; O2SAT 99
[2022-01-06] MEDS: FLUTICASONE PROPIONATE 0.05% NA SPR 16 GM BTL (*BKC) 2 SPRAY NASAL (17:13)
[2022-01-06 17:14] VITALS: PULSE 65
[2022-01-06] MEDS: nadoloL 20 MG TABLET PO (17:14)
[2022-01-06] MEDS: FUROSEMIDE 20 MG TABLET PO (17:15)
[2022-01-06] MEDS: FAMOTIDINE 20 MG TABLET 40 MG PO (17:15)
[2022-01-06] MEDS: FOLIC ACID 1 MG TABLET PO (17:15)
[2022-01-06] MEDS: SPIRONOLACTONE 50 MG TABLET PO (17:15)
[2022-01-06 17:17] VITALS: BP 118/64
[2022-01-06 19:15] VITALS: BP 112/69; PULSE 72; RESP 16; TEMP 36.6; O2SAT 100
[2022-01-06] MEDS: MIRTAZAPINE 15 MG TABLET PO (20:35)
[2022-01-06] MEDS: traZODone HCL 50 MG TABLET 100 MG PO (20:35)
[2022-01-06] MEDS: HYDROcodone/acetaminophen (*CRX) 10-325 MG TABLET 1 TAB PO (20:38)
[2022-01-06 21:17] VITALS: O2SAT 99
[2022-01-07 04:13] VITALS: BP 130/67; PULSE 55; RESP 18; TEMP 36.6; O2SAT 100
[2022-01-07 05:41] LABS: Basophils Percent Auto 0.4 % (0.2-1.2); Eosinophils Absolute Auto 0.1 K/mm3 (0-0.3); Hematocrit 33.4 % (42.0-52.0); Hemoglobin 10.8 g/dL (14.0-18.0); Immature Granulocyte Absolute 0.03 K/mm3 (0.00-0.031); Immature Granulocyte Percent A 0.7 % (0-0.5); Immature Platelet Fraction Pct 7.5 % (0.9-11.2); Lymphocytes Absolute Auto 1.43 K/mm3 (0.9-3.2); Lymphocytes Percent Auto 31.6 % (18.3-44.2); Mean Corpuscular HGB Conc 32.3 g/dl (32-36); Mean Corpuscular Volume 98.8 fl (80-100); Mean Platelet Volume 11.7 fl (7.4-10.4); Monocytes Absolute Auto 0.5 K/mm3 (0.1-0.6); Monocytes Percent Auto 10.4 % (2.6-8.5); Neutrophils Absolute Auto 2.5 K/mm3 (1.3-6.7); Neutrophils Percent Auto 54.9 % (45.5-73.1); Platelet Count Result 124 k/mm3 (150-375); Red Blood Count 3.38 M/mm3 (4.6-6.20); Red Cell Distribution Width 15.3 % (11.5-14.5); White Blood Count 4.5 K/mm3 (4.5-10.0)
[2022-01-07 05:49] LABS: Anion Gap 4 mmol/L (8-16); Blood Urea Nitrogen 7 mg/dL (9-20); Calcium 8.1 mg/dL (8.4-10.2); Carbon Dioxide 26 mmol/L (22-30); Chloride 105 mmol/L (98-107); Estimated CRCL calculation 74 ml/min; Estimated Glomerular Filt Rate > 60; Glucose 91 mg/dL (65-110); Potassium 3.9 mmol/L (3.4-5.0); Sodium 135 mmol/L (137-145)
[2022-01-07] MEDS: FERROUS SULFATE 324 MG TABLET PO ×2 (08:21→16:04)
[2022-01-07] MEDS: PANTOPRAZOLE 40 MG TABLET PO ×3 (08:21→17:52)
[2022-01-07] MEDS: POTASSIUM CHLORIDE 20 MEQ TABLET.ER 40 MEQ PO ×2 (08:21→16:02)
--- NOTE | 2022-01-07 10:28 | PM.PNGS ---
Progress Note: A&P Assessment and Plan (1) Abscess: Code(s): L02.91 - Cutaneous abscess, unspecified Status: Acute Assessment and Plan: Okay from our standpoint to discharge the patient to SNF when okay with other services. Continue packing with 1/4 iodoform gauze daily and as needed if soiled. Would recommend f/u with Colorectal Surgery at [place] (he previously saw Dr. Mando Siegel) as an outpatient after discharge for his stool incontinence. They may be able to provide further testing and see if they can offer any additional surgical treatment for this. They would also be able to re-evaluate the perianal abscess given his history with the diverticulitis with colon surgery and possible fistula. (2) Weakness: Code(s): R53.1 - Weakness Status: Acute Assessment and Plan: Improved. (3) Esophageal varices without bleeding: Code(s): I85.00 - Esophageal varices without bleeding Status: Acute (4) Alcoholic cirrhosis of liver with ascites: Code(s): K70.31 - Alcoholic cirrhosis of liver with ascites Status: Acute (5) Schizophrenia: Qualifiers: Schizophrenia type: unspecified Qualified Code(s): F20.9 - Schizophrenia, unspecified Code(s): F20.9 - Schizophrenia, unspecified Status: Acute Additional Plan I have discussed the patient's case and plan of care with Dr. Avalos. Subjective Subjective Date/Time Seen: 01/07/22 10:28 Patient reports: no new complaints, feels better, bowel movement and afebrile Interval history: Patient seen and examined. He reports having a BM earlier this morning and his packing was changed at this time. He states there is no longer pain with packing and he tolerated this well. No other complaints. He has placement for [address] per the manager critical care. Review of Systems Review of Systems: All systems reviewed & are unremarkable except as noted in HPI and below Exam Const: General: comfortable and no acute distress Orientation/consciousness: patient oriented x3 GI: GI Palp: Yes Soft to palpation and No Tenderness to palpation present (GI) Other: External anal exam reveals a small opening anterior and slightly left of midline to the anal opening with scant yellow drainage noted, packing in place and patient requested not to repack area due to recent packing. Induration improved : Scrotum: scrotal swelling diffuse (improved) Psych: Insight: Poor insight present (Psych) (continues to think his wound is healed regardless of reiterating it is not) Judgement: Limited judgement present (Psych) Objective Data Vital Signs Vital Signs: Vital Signs - 24 hr 01/06/22 14:25 01/06/22 17:14 01/06/22 17:17 Temperature 98.4 F Pulse Rate 67 65 Respiratory Rate 14 Blood Pressure 106/71 118/64 Pulse Oximetry 99 Oxygen Delivery 01/06/22 19:15 01/06/22 21:17 01/07/22 04:13 Temperature 97.8 F 97.8 F Pulse Rate 72 55 L Respiratory Rate 16 18 Blood Pressure 112/69 130/67 Pulse Oximetry 100 99 100 Oxygen Delivery Room Air Intake/Output Intake/Output: Intake & Output 01/04/22 01/05/22 01/06/22 01/07/22 23:59 23:59 23:59 23:59 Intake Total 2360 2070 1410 480 Output Total 3400 2550 2900 1000 Balance -1040 -480 -1490 -520 Meds/Results Medications: Active Medications Generic Name Dose Route Start Last Admin Trade Name Freq PRN Reason Stop Dose Admin Acetaminophen 650 mg 01/03/22 08:57 Acetaminophen 325 Mg Tablet PO Q4H PRN Mild Pain (1-3) or Fever Hydrocodone Bitart/Acetaminophen 1 tab 01/03/22 08:57 01/06/22 08:28 Hydrocodone/Acetaminophen (*Crx) 5-325 Mg Tablet PO 1 tab Q4H PRN Administration Pain Rated 4-6 Hydrocodone Bitart/Acetaminophen 1 tab 01/03/22 08:57 01/06/22 20:38 Hydrocodone/Acetaminophen (*Crx) 10-325 Mg Tablet PO 1 tab Q4H PRN Administration Pain Rated 7-10 Famotidine 40 mg 01/01/22 21:35 01/06/22 17
--- NOTE | 2022-01-07 11:14 | PM.DS ---
DS: Admitting Diagnosis Discharge Date 01/07/22 Admitting Diagnosis abscess DS: Discharge Diagnosis Discharge Diagnosis (1) UTI (urinary tract infection): Qualifiers: Hematuria presence: with hematuria Urinary tract infection type: site unspecified Qualified Code(s): N39.0 - Urinary tract infection, site not specified; R31.9 - Hematuria, unspecified Code(s): N39.0 - Urinary tract infection, site not specified Status: Acute Assessment and Plan: -started on Ancef q.12 hours for coverage of both urine as well as skin abscess. -urine culture grew serratia marcescens, resistant to Ancef, switched to Rocephin/Vanc to cover UTI and abscess -per sensitivity report switching to Bactrim on discharge (2) Weakness: Code(s): R53.1 - Weakness Status: Acute Assessment and Plan: -generalized weakness without focal deficit. -could be secondary to current UTI vs toy anal abscess -PT and OT evaluation. -fall precautions. -going to rehab facility on discharge (3) Acute kidney failure: Qualifiers: Acute renal failure type: unspecified Qualified Code(s): N17.9 - Acute kidney failure, unspecified Code(s): N17.9 - Acute kidney failure, unspecified Status: Acute Assessment and Plan: -etiology infection versus dehydration versus kidney disease. Suspect prerenal -IVF hydration -patient's past history says there is a history of heart failure. Echo ordered and shows EF of 65-70% -Avoided Nephrotoxic medications. Held Lasix and Spironolactone but these were restarted now that renal function is WNL -Resolved (4) Abscess: Code(s): L02.91 - Cutaneous abscess, unspecified Status: Acute Assessment and Plan: -toy anal abscess spontaneously draining -wound culture grew group F strep, had to call lab to ask for sensitivities, they were unable to isolate. -continue IV antibiotics -seen by wound care who recommended surgical consult -general surgery consulted for further recommendations. Spoke w/ Dr. Avalos today who states no CT necessary at this time. Pt need to have wound cleaned and packed after every bowel movement. -Discussed case with care coordination regarding placement. Pt needs help packing abscess after each bowel movement. Unable to do it himself and does not have anyone who can help at home. Will be going to rehab facility. -Will switch to Bactrim on discharge. Although we do not have sensitivities it should cover. -will continue wound care at the SNF and follow up with colorectal surgery at [facility] upon discharge from SNF. (5) Hyperkalemia: Code(s): E87.5 - Hyperkalemia Status: Acute Assessment and Plan: -Marginal elevation at 5.1. - Continue IVF and monitor daily labs and VS. -held supplemental potassium initially -resolved, resume KCL supplement and lasix DS: Summary Hospital Course Reason for hospitalization: 61-year-old male patient with significant past medical history of congestive heart failure, cirrhotic liver disease, depression, diarrhea, fatigue, GI bleed, hypokalemia, metabolic acidosis, poor appetite, schizophrenia, history of weight loss and a decubitus ulcer to his buttock, who presented to the hospital for generalized weakness. Please see HPI for further details. Hospital Course: Please see above for details of hospital course. Status at Discharge Cognitive/behavioral status at discharge: stable Functional status at discharge: independent ambulation Overall status at discharge: patient is progressing back to baseline Time Spent with Patient Time attestation: Total time spent providing and/or coordinating discharge services: 60 Time spent: Greater than 30 minutes Exam Narrative: General: No acute distress, non toxic appearing Eyes: PERRL, no scleral icterus HEENT: NCAT, external ears normal, MMM Respiratory: No respiratory distress, Lungs CTA bilaterall
[2022-01-07 12:41] LABS: EDCOVIDSCREEN Positive (Negative)
[2022-01-07 13:45] LABS: SARS-CoV-2 RNA PCR Positive
[2022-01-07 14:12] VITALS: BP 101/60; PULSE 73; RESP 16; TEMP 37.1; O2SAT 97
--- NOTE | 2022-01-07 16:21 | PM.IMPN ---
Progress Note: A&P Assessment and Plan (1) UTI (urinary tract infection): Qualifiers: Hematuria presence: with hematuria Urinary tract infection type: site unspecified Qualified Code(s): N39.0 - Urinary tract infection, site not specified; R31.9 - Hematuria, unspecified Code(s): N39.0 - Urinary tract infection, site not specified Status: Acute Assessment and Plan: -started on Ancef q.12 hours for coverage of both urine as well as skin abscess. -urine culture grew serratia marcescens, resistant to Ancef, switched to Rocephin/Vanc to cover UTI and abscess -per sensitivity report switching to Bactrim on discharge (2) Weakness: Code(s): R53.1 - Weakness Status: Acute Assessment and Plan: -generalized weakness without focal deficit. -could be secondary to current UTI vs toy anal abscess -PT and OT evaluation. -fall precautions. -going to rehab facility on discharge (3) Acute kidney failure: Qualifiers: Acute renal failure type: unspecified Qualified Code(s): N17.9 - Acute kidney failure, unspecified Code(s): N17.9 - Acute kidney failure, unspecified Status: Acute Assessment and Plan: -etiology infection versus dehydration versus kidney disease. Suspect prerenal -IVF hydration -patient's past history says there is a history of heart failure. Echo ordered and shows EF of 65-70% -Avoided Nephrotoxic medications. Held Lasix and Spironolactone but these were restarted now that renal function is WNL -Resolved (4) Abscess: Code(s): L02.91 - Cutaneous abscess, unspecified Status: Acute Assessment and Plan: -toy anal abscess spontaneously draining -wound culture grew group F strep, had to call lab to ask for sensitivities, they were unable to isolate. -continue IV antibiotics -seen by wound care who recommended surgical consult -general surgery consulted for further recommendations. Spoke w/ Dr. Avalos today who states no CT necessary at this time. Pt need to have wound cleaned and packed after every bowel movement. -Discussed case with care coordination regarding placement. Pt needs help packing abscess after each bowel movement. Unable to do it himself and does not have anyone who can help at home. Will be going to rehab facility. -Will switch to Bactrim on discharge. Although we do not have sensitivities it should cover. -will continue wound care at the SNF and follow up with colorectal surgery at [facility] upon discharge from SNF. (5) Hyperkalemia: Code(s): E87.5 - Hyperkalemia Status: Acute Assessment and Plan: -Marginal elevation at 5.1. - Continue IVF and monitor daily labs and VS. -held supplemental potassium initially -resolved, resume KCL supplement and lasix (6) COVID: Code(s): U07.1 - COVID-19 Status: Acute Assessment and Plan: -upon discharge pt tested positive -he is asymptomatic -pending dispo trying to find SNF that will accept him being covid positive Subjective Date/time seen: 01/07/22 16:21 Interval history: 61-year-old male patient with significant past medical history of congestive heart failure, cirrhotic liver disease, depression, diarrhea, fatigue, GI bleed, hypokalemia, metabolic acidosis, poor appetite, schizophrenia, history of weight loss and a decubitus ulcer to his buttock, who presented to the hospital for generalized weakness. Pt feels okay today. Was getting ready for dispo but tested positive for covid. Waiting on placement somewhere that he can go covid positive. No complaints. Review of Systems Review of Systems: All systems reviewed & are unremarkable except as noted in HPI and below Exam Narrative: General: No acute distress, non toxic appearing Eyes: PERRL, no scleral icterus HEENT: NCAT, external ears normal, MMM Respiratory: No respiratory distress, Lungs CTA bilaterally, no wheezing [facility]
[2022-01-07] MEDS: FLUTICASONE PROPIONATE 0.05% NA SPR 16 GM BTL (*BKC) 2 SPRAY NASAL (17:48)
[2022-01-07] MEDS: FAMOTIDINE 20 MG TABLET 40 MG PO (17:50)
[2022-01-07] MEDS: FOLIC ACID 1 MG TABLET PO (17:51)
[2022-01-07] MEDS: SPIRONOLACTONE 50 MG TABLET PO (17:51)
[2022-01-07] MEDS: FUROSEMIDE 20 MG TABLET PO (17:52)
[2022-01-07 17:53] VITALS: PULSE 72
[2022-01-07] MEDS: nadoloL 20 MG TABLET PO (17:53)
[2022-01-07 20:00] VITALS: PULSE 72; RESP 16; O2SAT 97
[2022-01-07] MEDS: traZODone HCL 50 MG TABLET 100 MG PO (20:02)
[2022-01-07] MEDS: MIRTAZAPINE 15 MG TABLET PO (20:02)
[2022-01-07] MEDS: HYDROcodone/acetaminophen (*CRX) 10-325 MG TABLET 1 TAB PO (20:32)
[2022-01-07 22:00] VITALS: BP 124/64; PULSE 64; RESP 21; TEMP 36.8; O2SAT 100
[2022-01-08 05:43] LABS: Basophils Percent Auto 0.2 % (0.2-1.2); Eosinophils Absolute Auto 0.1 K/mm3 (0-0.3); Eosinophils Percent Auto 2.2 % (0-4.4); Hematocrit 36.2 % (42.0-52.0); Hemoglobin 11.6 g/dL (14.0-18.0); Immature Granulocyte Absolute 0.02 K/mm3 (0.00-0.031); Immature Granulocyte Percent A 0.5 % (0-0.5); Immature Platelet Fraction Pct 6.8 % (0.9-11.2); Lymphocytes Absolute Auto 1.32 K/mm3 (0.9-3.2); Lymphocytes Percent Auto 32.9 % (18.3-44.2); Mean Corpuscular Hemoglobin 31.8 pg (26-34); Mean Corpuscular Volume 99.2 fl (80-100); Mean Platelet Volume 11.2 fl (7.4-10.4); Monocytes Absolute Auto 0.5 K/mm3 (0.1-0.6); Monocytes Percent Auto 11.2 % (2.6-8.5); Neutrophils Absolute Auto 2.1 K/mm3 (1.3-6.7); Platelet Count Result 134 k/mm3 (150-375); Red Blood Count 3.65 M/mm3 (4.6-6.20)
[2022-01-08 06:00] VITALS: BP 131/69; PULSE 64; RESP 21; TEMP 36.1; O2SAT 100
[2022-01-08 06:04] LABS: Anion Gap 4 mmol/L (8-16); Blood Urea Nitrogen 7 mg/dL (9-20); Calcium 8.4 mg/dL (8.4-10.2); Carbon Dioxide 24 mmol/L (22-30); Chloride 107 mmol/L (98-107); Estimated CRCL calculation 74 ml/min; Estimated Glomerular Filt Rate > 60; Glucose 90 mg/dL (65-110); Potassium 3.9 mmol/L (3.4-5.0); Sodium 135 mmol/L (137-145)
[2022-01-08] MEDS: POTASSIUM CHLORIDE 20 MEQ TABLET.ER 40 MEQ PO ×2 (09:06→17:22)
[2022-01-08] MEDS: FERROUS SULFATE 324 MG TABLET PO ×2 (09:06→17:25)
--- NOTE | 2022-01-08 12:18 | PM.IMPN ---
Progress Note: A&P Assessment and Plan (1) UTI (urinary tract infection): Qualifiers: Hematuria presence: with hematuria Urinary tract infection type: site unspecified Qualified Code(s): N39.0 - Urinary tract infection, site not specified; R31.9 - Hematuria, unspecified Code(s): N39.0 - Urinary tract infection, site not specified Status: Acute Assessment and Plan: -urine culture grew serratia marcescens, resistant to Ancef, switched to Rocephin/Vanc on 01/04. -Change to Bactrim DS 1 tab BID x 7 days for urine & skin coverage. (2) Weakness: Code(s): R53.1 - Weakness Status: Acute Assessment and Plan: -generalized weakness without focal deficit. -could be secondary to current UTI vs toy anal abscess -PT and OT evaluation. -fall precautions. - Attempting SNF rehab placement for therapy and wound care. Pending placement due to COVID19+ test. (3) Acute kidney failure: Qualifiers: Acute renal failure type: unspecified Qualified Code(s): N17.9 - Acute kidney failure, unspecified Code(s): N17.9 - Acute kidney failure, unspecified Status: Acute Assessment and Plan: -Resolved. Renal function stable. (4) Abscess: Code(s): L02.91 - Cutaneous abscess, unspecified Status: Acute Assessment and Plan: -toy anal abscess. Management per General Surgery -wound culture grew group F strep, had to call lab to ask for sensitivities, they were unable to isolate.?Generally can be treated with Bactrim which would also cover urine (which is resistant to PCN and cephalosporins). -continue abx for total 10 day course. -outpatient follow up with [facility] recommended. (5) Hyperkalemia: Code(s): E87.5 - Hyperkalemia Status: Acute Assessment and Plan: -resolved, continue KCL supplement and lasix at home doses. (6) COVID: Code(s): U07.1 - COVID-19 Status: Acute Assessment and Plan: -SNF transfer COVID19 test positive on 01/07. -continue isolation precautions. -cough present, +rhonchi & wheezing, but no supplemental O2 needs. -hold dexamethasone & remdesivir for now. -CXR today with linguinal opacities. WBC 4, afebrile, and patient has been on Rocephin/Vanc for the past 3-4 days. -Start Incentive spirometry, add delsym PRN, monitor respiratory status. Time Spent With Patient Time with patient: 15 - 25 minutes Subjective Date/time seen: 01/08/22 12:18 Interval history: 61-year-old male patient with significant past medical history of congestive heart failure, cirrhotic liver disease, depression, diarrhea, fatigue, GI bleed, hypokalemia, metabolic acidosis, poor appetite, schizophrenia, history of weight loss and a decubitus ulcer to his buttock, who presented to the hospital for generalized weakness. Pt c/o cough, no chest pain or SOB. He denies sputum. No fevers, chills, diaphoresis, abd pain, N/V/D, constipation or dysuria. Review of Systems Review of Systems: All systems reviewed & are unremarkable except as noted in HPI and below Exam Narrative: General:?No acute distress.? Nontoxic in appearance. No oxygen. HEENT:?NC, AT, PERRL, EOMI.? Sclerae anicteric.? Oral mucosa moist. Neck:??Supple. Respiratory:?Lungs scattered rhonchi and wheezing. RR even and unlabored. Cardiovascular:??Regular rate and rhythm with S1-S2.? No murmur, gallop or rub. Gastrointestinal:??Abdomen is soft, nontender, and nondistended with positive bowel sounds. Skin:??Warm and dry.? No rash or lesions on limited exam. Rectal packing clean & dry. Extremities:??No cyanosis, clubbing, or edema. Radial and pedal pulses intact. No edema. Neurological:??Alert and oriented.? Cranial nerves 2-12 are grossly intact. muscle strength 5/5. Psychiatric:?Normal affect.? Appropriate mood. Objective Data Vital Signs Vital Signs: Vital Signs - 24 hr 01/07/22 14:12 01/07/22 17:53 01/07/22 20:
[2022-01-08] MEDS: PANTOPRAZOLE 40 MG TABLET PO ×2 (12:20→17:26)
[2022-01-08 13:50] VITALS: BP 151/73; PULSE 72; RESP 18; TEMP 36.2; O2SAT 100
[2022-01-08] MEDS: DEXTROMETHORPHAN POLISTIREX 60 MG/10 ML SYRINGE PO (13:51)
[2022-01-08] MEDS: HYDROcodone/acetaminophen (*CRX) 10-325 MG TABLET 1 TAB PO ×2 (13:52→20:55)
[2022-01-08 17:23] VITALS: PULSE 75
[2022-01-08] MEDS: nadoloL 20 MG TABLET PO (17:23)
[2022-01-08] MEDS: FAMOTIDINE 20 MG TABLET 40 MG PO (17:25)
[2022-01-08] MEDS: FUROSEMIDE 20 MG TABLET PO (17:26)
[2022-01-08] MEDS: SACCHAROMYCES BOULARDII 250 MG CAPSULE PO (17:26)
[2022-01-08] MEDS: SPIRONOLACTONE 50 MG TABLET PO (17:26)
[2022-01-08] MEDS: FOLIC ACID 1 MG TABLET PO (17:26)
[2022-01-08] MEDS: FLUTICASONE PROPIONATE 0.05% NA SPR 16 GM BTL (*BKC) 2 SPRAY NASAL (17:27)
[2022-01-08] MEDS: traZODone HCL 50 MG TABLET 100 MG PO (20:51)
[2022-01-08] MEDS: MIRTAZAPINE 15 MG TABLET PO (20:51)
[2022-01-08 22:00] VITALS: BP 129/62; PULSE 62; RESP 21; TEMP 36.6; O2SAT 100
[2022-01-09 06:00] VITALS: BP 131/65; PULSE 65; RESP 21; TEMP 36.4; O2SAT 100
[2022-01-09 06:16] LABS: Hemoglobin 11.1 g/dL (14.0-18.0); Mean Corpuscular HGB Conc 32.6 g/dl (32-36); Mean Corpuscular Hemoglobin 31.7 pg (26-34); Mean Corpuscular Volume 97.1 fl (80-100); Mean Platelet Volume 11.5 fl (7.4-10.4); Platelet Count Result 180 k/mm3 (150-375); Red Cell Distribution Width 14.8 % (11.5-14.5); White Blood Count 5.1 K/mm3 (4.5-10.0)
[2022-01-09 06:30] LABS: Anion Gap 5 mmol/L (8-16); Blood Urea Nitrogen 10 mg/dL (9-20); Calcium 8.3 mg/dL (8.4-10.2); Carbon Dioxide 23 mmol/L (22-30); Chloride 106 mmol/L (98-107); Estimated CRCL calculation 65 ml/min; Estimated Glomerular Filt Rate > 60; Glucose 89 mg/dL (65-110); Potassium 4.4 mmol/L (3.4-5.0); Sodium 134 mmol/L (137-145)
[2022-01-09] MEDS: FERROUS SULFATE 324 MG TABLET PO (08:35)
[2022-01-09] MEDS: POTASSIUM CHLORIDE 20 MEQ TABLET.ER 40 MEQ PO (08:35)
[2022-01-09] MEDS: SACCHAROMYCES BOULARDII 250 MG CAPSULE PO (08:35)
[2022-01-09] MEDS: PANTOPRAZOLE 40 MG TABLET PO (08:36)
[2022-01-09] MEDS: DEXTROMETHORPHAN POLISTIREX 60 MG/10 ML SYRINGE PO (08:42)
--- NOTE | 2022-01-09 09:22 | PCNFU ---
Nutrition Follow-Up Complete: Pt current nutrition is Regular diet and dietary supplements Last recorded weight is 59.1 kg, wt down 0.5kg from last reported wt on 01/08. Recommend re-weighing prior to discharge. Bowel Motility: +BM reported 01/06 Labs Reviewed:Hgb 11.1, Hct 34.0, Na 134, Ca 8.3 Meds Noted: Delsym, ferrous sulfate, protonix, Kcl, Florastor Skin: rectum blister Additional Notes: Reported oral intake is 25%, 75% x2, and 100% x2. Pt is receiving dietary supplements of Ensure Compact BID providing an additional 220kcal and 9g of protein per shake. Spoke with pt via phone due to following covid precautions. Pt reports that his appetite has been good and he has been drinking the dietary supplements. Agree with current diet orders at this time. Will follow up in 7 days if pt has not been discharged.
[2022-01-09 14:00] VITALS: BP 134/72; PULSE 64; RESP 20; TEMP 36.6; O2SAT 97
--- NOTE | 2022-01-09 16:21 | PM.DS ---
DS: Admitting Diagnosis Discharge Date 01/09/22 1106 Admitting Diagnosis UTI Generalize weakness Acute kidney failure Rectal abscess Hyperkalemia DS: Discharge Diagnosis Discharge Diagnosis (1) UTI (urinary tract infection): Qualifiers: Hematuria presence: with hematuria Urinary tract infection type: site unspecified Qualified Code(s): N39.0 - Urinary tract infection, site not specified; R31.9 - Hematuria, unspecified Code(s): N39.0 - Urinary tract infection, site not specified Status: Acute (2) Abscess: Code(s): L02.91 - Cutaneous abscess, unspecified Status: Acute (3) Acute kidney failure: Qualifiers: Acute renal failure type: unspecified Qualified Code(s): N17.9 - Acute kidney failure, unspecified Code(s): N17.9 - Acute kidney failure, unspecified Status: Acute (4) Weakness: Code(s): R53.1 - Weakness Status: Acute (5) COVID: Code(s): U07.1 - COVID-19 Status: Acute (6) Hyperkalemia: Code(s): E87.5 - Hyperkalemia Status: Acute (7) Schizophrenia: Qualifiers: Schizophrenia type: unspecified Qualified Code(s): F20.9 - Schizophrenia, unspecified Code(s): F20.9 - Schizophrenia, unspecified Status: Chronic DS: Summary Hospital Course Reason for hospitalization: UTI Hospital Course: Loy Cartwright is a pleasant 61-year-old male with significant past medical history of congestive heart failure, cirrhotic liver disease, depression, GI bleed, hypokalemia, metabolic acidosis, poor appetite, schizophrenia, history of weight loss and a decubitus ulcer to his buttock. He presented to the emergency room with complaints of having generalized fatigue and weakness for one week prior to admission.? He reported loss of appetite and transient dyspnea.? He felt sluggish and had difficulty in starting his urine stream.? In addition he endorsed a cyst on his buttock that ruptured within the past week prior to admission and had continually been draining.? He denied any fevers or chills, but endorsed emesis.? He denied any overt chest pain, dyspnea at rest, persistent vomiting or diarrhea and no headaches, lightheadedness or dizziness.? In the ED his labs were significant for a white blood cell count of 10.7, potassium of 5.1, creatinine of 3.70 (baseline is normal levels and was 1.19 exactly 1 month prior), BUN of 39, total bili of 1.5 and urine showing positive nitrites, leukocyte esterase of 2+ and greater than 75 wbc's.? Chest x-ray was significant for lingular infiltrates, suggesting atelectasis versus developing pneumonia.? Patient was started on cefazolin based upon his draining cyst on his buttock. He was admitted to the medical floor and continued on Ancef 1 gram Q8 hours, as well as IV hydration. General surgery was consulted. The wound was packed with iodoform 1/4 gauze daily and as needed for bowel movements. The patient had reported bouts of stool incontinence and it was recommended that this be evaluated by Colorectal surgery at [facility]. Wound culture showed strep group F growth. Sensitivities could not be obtained, per lab, however, the patient was treated with Ancef from 01/01 to 01/04, Rocephin 1 gram Q24 and Vancomycin IV (pharmacy dosed) 01/04 to 01/08, and transitioned to oral Bactrim DS 1 tablet BID on 01/08 for an additional 10 days, to complete 14-day abx course. Dressing changes will be continued at discharge until wound is healed with iodoform packing. The patient renal function improved on IV hydration and returned to normal by discharge. Hyperkalemia resolved with improved renal function and stopping his potassium supplement on admission. Furosemide, spironolactone and potassium supplement were resumed prior to discharge and remained within normal limits. Urine culture did show seratia marcescens growth resistant to Ancef. His antibiotic was changed to IV Rocephin 1 gram Q24 hours on 01/04. He wa
== END 2022-01-09 15:16 | DRG 393 ==
LOC: ANHED 13:27 → ANH2MED 14:34
PROVIDERS: Emergency Medicine; Nurse Practitioner Adult Health; Physician Assistant; Admitting Provider Chiropractor; Emergency Provider Emergency Medicine; PCP Family Medicine; Visit Provider Nurse Practitioner Family
DX: K61.0 Anal abscess (principal); U07.1 COVID-19; J18.9 Pneumonia, unspecified organism; N39.0 Urinary tract infection, site not specified; N17.9 Acute kidney failure, unspecified; I85.00 Esophageal varices without bleeding; E87.2 Acidosis; Z16.39 Resistance to other specified antimicrobial drug; J44.0 Chronic obstructive pulmonary disease with (acute) lower respiratory infection; L72.8 Other follicular cysts of the skin and subcutaneous tissue; B96.89 Other specified bacterial agents as the cause of diseases classified elsewhere; B95.4 Other streptococcus as the cause of diseases classified elsewhere; E87.5 Hyperkalemia; R15.9 Full incontinence of feces; I50.9 Heart failure, unspecified; F20.9 Schizophrenia, unspecified; K70.31 Alcoholic cirrhosis of liver with ascites; E86.0 Dehydration; F17.210 Nicotine dependence, cigarettes, uncomplicated
CPT/HCPCS: 36415; 71045; 71046; 80048; 80053; 80202; 81001; 83735; 84443; 85025; 85027; 85055; 85610; 85730; 87070; 87077; 87086; 87088; 87147; 87186; 87205; 87426; 93005; 96361; 96365; 97110; 97161; 97165; 97530; 99285; A9270; C8929; C9803; G0378; J0690; J0696; J1644; J3370; J7030; Q9957; U0003; U0005

== ENCOUNTER 2022-09-23 00:18 | Day surgery (SDC) | payer MEDICARE, MEDICAID, SELFPAY ==
[2022-09-09 13:40] VITALS: BMI 25.2
[2022-09-23 11:30] VITALS: BP 110/85; PULSE 66; RESP 18; TEMP 36.1; O2SAT 100
--- NOTE | 2022-09-23 11:30 | PM.HPGS ---
History of Present Illness History of Present Illness Consent: Risks, benefits, and alternatives have been discussed and questions answered. Patient agrees to proceed with procedure. Chief complaint: abnormal findings on diagnostic imaging Narrative: Loy Cartwright is a 61 year old male with fobt, last attempt of colonoscopy with poor prep Review of Systems Constitutional: Constitutional: Denies headache(s) and Denies weakness Eyes: Eyes: Denies blurry vision ENT: Reports Normal hearing present, Denies headache(s) and Denies neck pain Cardiovascular: Cardiovascular: Denies chest pain and Denies dyspnea Respiratory: Respiratory: Denies dyspnea Gastrointestinal: Gastrointestinal: Reports no additional gastrointestinal complaints Genitourinary: Genitourinary: Denies dysuria Musculoskeletal: Musculoskeletal: Denies neck pain Integumentary/Breasts: Skin/Breast: Denies dry skin Neurologic: Reports Normal hearing present, Denies headache(s) and Denies weakness Psychiatric: Psychiatric: Denies anxiety Endocrine: Endocrine: Denies change in body appearance Hematologic/Lymphatic: Hematologic/Lymphatic: Denies easy bleeding Allergic/Immunologic: Allergic/Immunologic: Denies urticaria PMFSH Past Medical History Medical History (Updated 09/23/22 @ 11:31 by Arsen Giron MD) Abnormal colonoscopy 01/18 CHF (congestive heart failure) Colon cancer screening Colovesical fistula Decubitus ulcer, buttock Depression Diarrhea Diverticulitis of large intestine without perforation or abscess without bleeding Fatigue Fear of loss of control of bowel in public GI bleed Hypokalemia Metabolic acidosis Noncompliance of patient with renal dialysis Occult blood in stools Poor appetite Schizophrenia Tobacco abuse Traumatic arthropathy, right hip Weight loss Surgical History Surgical History History of left hemicolectomy 2019 History of rectal surgery 2019 Repair colorectal fistula Family History Family History Sibling Family history of malignant neoplasm Father Family history of lung cancer Diabetes mellitus Hypertension Mother Family history of congestive heart failure Diabetes mellitus Hypertension Other Hyperlipidemia Social History Social History Smoking packs per day: 0.1 Smoking cigarettes per day: 2.0 Years smoked: 40 Smoking pack-years: 4.00 Smoking status: Current every day smoker Tobacco type: cigarettes Alcohol intake: former Drinks per week: 7 Substance use: former Substance use type: marijuana Other substance usage details: 08/05 pint fireball per day Last use: 12/18/21 Living arrangements: alone Occupation/Education: other Additional occupation/education comments: disabled Sexual Orientation (if Verbalized by the Patient): Straight or Heterosexual Spiritual care concerns: No Agree to blood products: Yes Meds Home Medications and Allergies Home Medications Medication Instructions Recorded Confirmed Type fluticasone propionate 50 2 spray intranasal QPM 01/01/22 09/09/22 History mcg/actuation nasal spray,suspension folic acid 1 mg tablet 1 mg PO QPM 01/01/22 09/09/22 History thiamine HCl (vitamin B1) 100 mg 50 mg PO QPM 01/01/22 09/09/22 History tablet albuterol sulfate 90 mcg/actuation 2 inh inhalation QID PRN shortness 01/09/22 09/09/22 Rx aerosol inhaler of breath or wheezing #6.7 grams nadolol 20 mg tablet 20 mg PO QPM #30 tabs 03/30/22 09/23/22 Rx trazodone 100 mg tablet 100 mg PO HS PRN insomnia #30 tabs 06/18/22 09/09/22 Rx ferrous sulfate 325 mg (65 mg 325 mg PO BID #60 tabs 07/20/22 09/09/22 Rx iron) tablet mirtazapine 15 mg tablet 15 mg PO QHS #30 tabs 07/27/22 09/09/22 Rx spironolactone 50 mg tablet 50 mg PO QPM #90 tabs 08/18/2209/09
[2022-09-23] MEDS: LACTATED RINGERS 1,000 ML 150 ML IV CONT (11:38)
--- NOTE | 2022-09-23 11:57 | WPDANESEPPF ---
Anes - Initial Pre Proc Eval Procedure: Operation Date: 09/23/22 12:30 Proposed Procedures p Colonoscopy - Arsen Giron MD Date/Time: 09/23/22 11:57 Surgeon: Arsen Giron MD Pre Op Diagnosis: abnormal findings on diagnostic imaging Patient Data Age: 61 Gender: M Height: 1.78 m Weight: 77.9 kg Last Vital Signs Temp 96.9 F L 09/23/22 11:30 Pulse 66 09/23/22 11:30 Resp 18 09/23/22 11:30 BP 110/85 09/23/22 11:30 Pulse Ox 100 09/23/22 11:30 O2 Del Method Room Air 09/23/22 11:30 Allergies Allergy/AdvReac Type Severity Reaction Status Date / Time iodine Allergy Unknown Unknown Verified 09/23/22 11:28 Contrast Media Allergy Mild Hives / Uncoded 09/23/22 11:28 Red Face Home Medications Medication Instructions Recorded Confirmed Type fluticasone propionate 50 2 spray intranasal QPM 01/01/22 09/09/22 History mcg/actuation nasal spray,suspension folic acid 1 mg tablet 1 mg PO QPM 01/01/22 09/09/22 History thiamine HCl (vitamin B1) 100 mg 50 mg PO QPM 01/01/22 09/09/22 History tablet albuterol sulfate 90 mcg/actuation 2 inh inhalation QID PRN shortness 01/09/22 09/09/22 Rx aerosol inhaler of breath or wheezing #6.7 grams nadolol 20 mg tablet 20 mg PO QPM #30 tabs 03/30/22 09/23/22 Rx trazodone 100 mg tablet 100 mg PO HS PRN insomnia #30 tabs 06/18/22 09/09/22 Rx ferrous sulfate 325 mg (65 mg 325 mg PO BID #60 tabs 07/20/22 09/09/22 Rx iron) tablet mirtazapine 15 mg tablet 15 mg PO QHS #30 tabs 07/27/22 09/09/22 Rx spironolactone 50 mg tablet 50 mg PO QPM #90 tabs 08/18/22 09/09/22 Rx furosemide 20 mg tablet 20 mg PO QPM #90 tabs 09/07/22 09/09/22 Rx famotidine 40 mg tablet See Rx Instructions .Route 09/21/22 09/22/22 Rx .COMPLEX #90 tabs potassium chloride 20 mEq 40 meq PO BID #120 tabs 09/23/22 Rx tablet,extended release(part/cryst) Patient hx anesthesia problems: none Family hx anesthesia problems: none Results Review: All pre-operative results and documents have been reviewed as part of the pre-operative evaluation. [facility] Past Medical History Medical History (Updated 09/23/22 @ 11:31 by Arsen Giron MD) Abnormal colonoscopy 01/18 CHF (congestive heart failure) Colon cancer screening Colovesical fistula Decubitus ulcer, buttock Depression Diarrhea Diverticulitis of large intestine without perforation or abscess without bleeding Fatigue Fear of loss of control of bowel in public GI bleed Hypokalemia Metabolic acidosis Noncompliance of patient with renal dialysis Occult blood in stools Poor appetite Schizophrenia Tobacco abuse Traumatic arthropathy, right hip Weight loss Surgical History Surgical History History of left hemicolectomy 2019 History of rectal surgery 2019 Repair colorectal fistula Family History Family History Sibling Family history of malignant neoplasm Father Family history of lung cancer Diabetes mellitus Hypertension Mother Family history of congestive heart failure Diabetes mellitus Hypertension Other Hyperlipidemia Social History Social History Smoking packs per day: 0.1 Smoking cigarettes per day: 2.0 Years smoked: 40 Smoking pack-years: 4.00 Smoking status: Current every day smoker Tobacco type: cigarettes Alcohol intake: former Drinks per week: 7 Substance use: former Substance use type: marijuana Other substance usage details: 08/05 pint fireball per day Last use: 12/18/21 Living arrangements: alone Occupation/Education: other Additional occupation/education comments: disabled Sexual Orientation (if Verbalized by the Patient): Straight or Heterosexual Spiritual care concerns: No Agree to blood products: Yes Anes - Eval Final PreProcedure Day
[2022-09-23 12:16] VITALS: BP 101/58; PULSE 63; RESP 25; O2SAT 100
[2022-09-23 12:26] VITALS: BP 129/70; PULSE 53; RESP 24; O2SAT 100
[2022-09-23 12:36] VITALS: BP 127/70; PULSE 62; RESP 20; O2SAT 100
== END 2022-09-23 12:56 | disposition home or self-care (01) ==
PROVIDERS: PCP Family Medicine; Visit Provider Internal Medicine Gastroenterology
PROC: 0DJD8ZZ Inspection of Lower Intestinal Tract, Via Natural or Artificial Opening Endoscopic (ICD-10-PCS; CPT 45378; principal; 2022-09-23 12:30)
DX: Z12.11 Encounter for screening for malignant neoplasm of colon (principal); K57.30 Diverticulosis of large intestine without perforation or abscess without bleeding; R19.5 Other fecal abnormalities; Z98.0 Intestinal bypass and anastomosis status; Z90.49 Acquired absence of other specified parts of digestive tract; Z87.19 Personal history of other diseases of the digestive system; I50.9 Heart failure, unspecified; F32.A Depression, unspecified; F20.9 Schizophrenia, unspecified; F17.210 Nicotine dependence, cigarettes, uncomplicated; Z79.51 Long term (current) use of inhaled steroids
CPT/HCPCS: G0121; J2704; J7120

== ENCOUNTER → 2023-02-11 13:20 | Outpatient (CLI) | payer MEDICARE, MEDICAID, SELFPAY ==
--- NOTE | ~2023-02-11 | XR_ITS ---
EXAMINATION: XR hip RT min 3V w AP pelvis DATE: 02/11/2023 13:50 INDICATION: Right hip pain. TECHNIQUE: An anteroposterior view of the pelvis and 2 views of right hip were obtained. COMPARISON: CT 07/30/2021 FINDINGS: Bone alignment is normal. No fracture. There is advanced right hip osteoarthritis including enlargement of the acetabulum and deformation of the femoral head. There is a loose body in the righ t hip joint. Right hip joint remodeling results in 6.2 cm superior displacement of right lesser troch anter compared to the left lesser trochanter. There is moderate left hip osteoarthritis. There is mil d lumbar spondylosis. IMPRESSION: 1. Advanced right hip osteoarthritis with loose body. 2. Moderate left hip osteoarthritis. Reviewed, dictated and finalized at location E.
== END ==
PROVIDERS: PCP Family Medicine; Visit Provider Family Medicine
DX: M25.551 Pain in right hip (principal); M16.0 Bilateral primary osteoarthritis of hip; M24.051 Loose body in right hip
CPT/HCPCS: 73502

== ENCOUNTER 2023-03-24 10:15 | Outpatient (CLI) | payer MEDICARE, MEDICAID, SELFPAY ==
--- NOTE | ~2023-03-24 | US_ITS ---
US right upper quadrant INDICATION: Cirrhosis of the liver PROCEDURE: Realtime right upper abdominal ultrasound. COMPARISON: No prior studies for comparison. FINDINGS: The pancreas is normal without focal mass or pancreatic ductal dilation. Liver surface is nodular, compatible with cirrhosis. No focal hepatic masses. There is normal directional flow in the portal vein. There are gallstones. No gallbladder wall thickening or pericholecystic fluid. Common bile duct shoaib ures 6 mm. No sonographic Katz's sign. IMPRESSION: 1: Cirrhosis of the liver. 2: Cholelithiasis. Reviewed, dictated and finalized at location B.
== END 2023-03-24 10:16 | disposition home or self-care (01) ==
PROVIDERS: PCP Family Medicine; Visit Provider Internal Medicine Gastroenterology
DX: K74.60 Unspecified cirrhosis of liver (principal); K80.20 Calculus of gallbladder without cholecystitis without obstruction
CPT/HCPCS: 76705

== ENCOUNTER 2023-11-10 10:06 | Outpatient (CLI) | payer MEDICARE, SELFPAY ==
--- NOTE | ~2023-11-10 | US_ITS ---
Limited Abdominal Sonogram: Real-time sonographic imaging of the right upper quadrant was performed. Clinical History: Cirrhosis Findings: The liver somewhat nodular contour, without focal mass lesion or bile duct dilatation. Nataliya n portal vein demonstrates normal direction of flow. The gallbladder is well distended, and demonstra te small layering shadowing stones.. The common bile duct measures 3 mm. The visualized pancreas, ao rta, and IVC are unremarkable. Impression: Nodular liver is compatible cirrhosis. No suspicious mass identified sonographically. Cholelithiasis. Reviewed, dictated and finalized at location M. Impression: Nodular liver is compatible cirrhosis. No suspicious mass identified sonographi sam. Cholelithiasis.
[2023-11-10 11:22] LABS: Hematocrit 48.8 % (42.0-52.0); Hemoglobin 16.3 g/dL (14.0-18.0); Immature Platelet Fraction Pct 7.3 % (0.9-11.2); Mean Corpuscular HGB Conc 33.4 g/dl (32-36); Mean Corpuscular Hemoglobin 31.5 pg (26-34); Mean Corpuscular Volume 94.2 fl (80-100); Mean Platelet Volume 11.2 fl (7.4-10.4); Platelet Count Result 136 k/mm3 (150-375); Red Blood Count 5.18 M/mm3 (4.6-6.20); Red Cell Distribution Width 14.4 % (11.5-14.5); White Blood Count 5.2 K/mm3 (4.5-10.0)
[2023-11-10 11:32] LABS: INR 1.1; Prothrombin Time 14.8 Seconds (11.1-14.7)
[2023-11-10 11:34] LABS: Alanine Aminotransferase 23 U/L (6-50); Albumin Level 4.9 g/dL (3.5-5.1); Alkaline Phosphatase 91 U/L (38-126); Anion Gap 10 mmol/L (4-12); Aspartate Amino Transferase 28 U/L (17-59); Bilirubin,Total 1.2 mg/dL (0.2-1.3); Blood Urea Nitrogen 23 mg/dL (9-20); Calcium 9.9 mg/dL (8.4-10.2); Carbon Dioxide 19 mmol/L (22-30); Chloride 110 mmol/L (98-107); Estimated Glomerular Filt Rate > 60; Glucose 106 mg/dL (65-110); Potassium 4.7 mmol/L (3.4-5.0); Sodium 139 mmol/L (137-145)
== END 2023-11-10 10:07 | disposition home or self-care (01) ==
PROVIDERS: PCP Family Medicine; Visit Provider Internal Medicine Gastroenterology
DX: K70.31 Alcoholic cirrhosis of liver with ascites (principal); K80.20 Calculus of gallbladder without cholecystitis without obstruction
CPT/HCPCS: 36415; 76705; 80053; 85027; 85055; 85610

== ENCOUNTER 2024-05-09 08:38 | Outpatient (CLI) | payer MEDICARE, SELFPAY ==
--- NOTE | ~2024-05-09 | US_ITS ---
US right upper quadrant INDICATION: Cirrhosis PROCEDURE: Realtime right upper abdominal ultrasound. COMPARISON: No prior studies for comparison. FINDINGS: The pancreas is normal without focal mass or pancreatic ductal dilation. Liver surface is nodular, consistent with cirrhosis. Liver echotexture is somewhat heterogeneous, although no discrete mass identified. There is normal directional flow in the portal vein. There are gallstones. No gallbladder wall thickening or pericholecystic fluid. Common bile duct shoaib ures 5 mm. No sonographic Katz's sign. Right renal echotexture is normal. IMPRESSION: 1: Cirrhosis of the liver. 2: Cholelithiasis. Reviewed, dictated and finalized at location B.
== END 2024-05-09 08:39 | disposition home or self-care (01) ==
PROVIDERS: PCP Family Medicine; Visit Provider Internal Medicine Gastroenterology
DX: K70.31 Alcoholic cirrhosis of liver with ascites (principal); K80.20 Calculus of gallbladder without cholecystitis without obstruction
CPT/HCPCS: 76705

== ENCOUNTER 2024-11-24 09:50 | Outpatient (CLI) | payer MEDICARE, SELFPAY ==
--- NOTE | ~2024-11-24 | US_ITS ---
Limited Abdominal Sonogram: Real-time sonographic imaging of the right upper quadrant was performed. Clinical History: Cervical MR Findings: The liver appears normal echotexture with diffusely nodular contour, but no evidence of ma ss lesion or bile duct dilatation. Main portal vein demonstrates normal direction of flow. The gallbl adder is well distended, with multiple small layering gallstones. The common bile duct measures 3 mm. The visualized pancreas, aorta, and IVC are unremarkable. Impression: Cirrhotic morphology of liver. No focal mass evident. Cholelithiasis. Reviewed, dictated and finalized at location . Impression: Cirrhotic morphology of liver. No focal mass evident. Cholelithiasis.
--- OUTSIDE RECORDS SUMMARY | 2024-11-24 10:05 | XMS_ITS | Clinical Summary ---
Author Organization [facility] Address [address] [place] [address] Care Team Providers Care Director Community Center Name Role Phone Paolo Sargent MD Primary Care Provider + Source Comments [facility],non-owned Affiliates and Associated Physician Practices is amultiple site organization consisting of ambulatory clinics and hospital sitesin [place], [place], [place] and [place]. This disclosure is being madepursuant to the Care Everywhere program and may not contain all information available regarding this patient. 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 Gender Identity Not on file Sexual Orientation Not on file Plan of Treatment Health Maintenance Due Date Last Done Comments COLOGUARD (AGES 45-75) - COL ON CA SCREENING 1961 COLON MONITORING 1961 COLONOSCOPY - COLON CA SCREENING 1961 CT COLONOGRAPHY - COLON CA SCREENING 1961 Colorectal Cancer Screening 1961 FIT - COLON CA SCREENING 1961 FLEX SIG - COLON CA SCREENING 1961 LIPID TESTING 1961 HIV SCREENING 1976 HEPATITIS C SCREENING 10/26/1979 DTAP/TDAP/TD VACCINES (1 - Tdap) 1980 PNEUMOCOCCAL VACCINE 50+ (1 of 1 - PCV) 10/31/2011 ZOSTER VACCINE (1 of 2) 10/31/2011 COVID-19 VACCINE ( - 2023-2 5 season) 2024 DEPRESSION SCREENING 08/02/2024 INFLUENZA VACCINE (Season Ended) 2025 Respiratory Syncytial Virus (RSV) Vaccine Pt: or over 60 yrs (1 - 1-dose 75+ series) 2036 HEPATITIS B VACCINE Aged Out No longe r eligible based on patient's age to complete this topic HIB VACCINE Aged Out No longer eligi ble based on patient's age to complete this topic HPV VACCINE Aged Out No longer eligi ble based on patient's age to complete this topic MENINGOCOCCAL (Group B) VACC INE SHARED DECISION-MAKING Aged Out No longer eligibl e based on patient's age to complete this topic MENINGOCOCCAL GROUPS A/C/Y/W VACCINE Aged Out No longer eligible b ased on patient's age to complete this topic Insurance MEDICARE Care Teams Director Community Center Relationship Specialty Start Date End Date Paolo Sargent MD [address] [address] PCP - General 11/22/18
--- OUTSIDE RECORDS SUMMARY | 2024-11-24 10:05 | XMS_ITS | Encounter Summary ---
Author Organization [facility] Address [address] [place] [address] Phone Care Team Providers Care Sales And Marketing Intern Name Role Phone Paolo Sargent MD Primary Care Prov ider Nazario Lawrence MD Unavailable [phone] Encounter Details Date Type Department Care Team (Late st Contact Info) Description 07/30/2021 Orders Only [facility] Scanning, Provider Social History Tobacco Use Types Packs/Day Years Used Date Smoking Tobacco: Every Day Cigarettes 1.5 42.3 Started: 1982 Smokeless Tobacco: Never Alcohol Use Standard Drinks/Week Comments Not Currently 0 (1 standard drink = 0.6 oz pur e alcohol) LAST DRANK 2 YEARS AGO AUDIT-C Answer Date Recorded Q1: How often do you have a drink containing alcohol? 4 or more times a week 03/03/2021 Q2: How many drinks containi ng alcohol do you have on a typical day when you are drinking? 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 Gender Identity Not on file Sexual Orientation Not on file Occupation Industry Job Start Date Job End Date Not currently employed Not on file Not on file Not o n file documented as of this encounter Plan of Treatment Not on file documented as of this encounter Procedures Procedure Name Priority Date/Time Associated Diagnosis Comments SCAN - RADIOLOGY/IMAGING 07/30/2021 documented in this encounter Results * SCAN - RADIOLOGY/IMAGING (07/30/2021) Anatomical Region Laterality Modality Other us Provider Scanning Edited Result - Final documented in this encounter Visit Diagnoses Not on filedocumented in this encounter Care Teams Sales And Marketing Intern Relationship Specialty Start Date End Date Paolo Sargent MD PCP - General Family Medicine 01/05/19 Nazario Lawrence MD [address] [place] [id number] Referring Physician Orthopedic Surgery 12/21/23 documented as of this encounter
--- OUTSIDE RECORDS SUMMARY | 2024-11-24 10:06 | XMS_ITS | Referral Summary ---
Author Organization [facility] Address [address] [place] [address] Care Team Providers Care Architecture Professor Name Role Phone Paolo Sargent MD Primary Care Prov ider Nazario Lawrence MD Unavailable [phone] Allergies Active Allergy Reactions Criticality Noted Date Comments Iodinated Contrast Media Hives Medium 01/05/2019 Medications spironolactone (ALDACTONE) 50 mg tablet Take 1 tablet (50 mg total) by mouth daily 30 tablet 04/07/2019 Active furosemide (LASIX) 20 mg tablet Take 1 tablet (20 mg total) by mouth daily 30 tablet 04/07/2019 Active nadolol (CORGARD) 20 mg tablet Take 1 tablet (20 mg total) by mouth daily 30 tablet 04/07/2019 Active traZODone (DESYREL) 100 mg tablet TK 1 T PO HS 3 05/08/2019 Active naproxen (ALEVE) 220 mg tablet Take by mouth 2 (two) times a day with meals Active fluticasone propionate (FLONASE) 50 mcg/actuation nasal spray U 2 SPRAYS IN EACH NOSTRIL ONCE A DAY 2 07/11/[address] (PROTONIX) 40 mg EC tablet TK 1 T PO BID 3 07/12/2019 Active furosemide (LASIX) 20 mg tablet Take 20 mg by mouth daily Active nadoloL (CORGARD) 20 mg tablet Take 20 mg by mouth daily Active spironolactone (ALDACTONE) 50 mg tablet Take 50 mg by mouth daily Active famotidine (PEPCID) 40 mg tablet TAKE 1 TABLET BY MOUTH DAILY FOR ACID 06/18/2021 Active FeroSuL 325 mg (65 mg iron) tablet Take 1 tablet by mouth 08/06/2021 Active folic acid (FOLVITE) 1 mg tablet Take 1,000 mcg by mouth daily 08/06/2021 Active Vitamin B-1, mononitrate, 100 mg tablet Take 50 mg by mouth daily 08/06/2021 Active Active Problems Problem Noted Date Diagnosed Date Alcohol dependence, episodic drinking behavior 0 08/11/2021 Assessment & Plan (08/11/2021 5:43 PM TAXATION ECONOMIST): I stressed the importance of alcohol abstinence as the most effective means of improving liver function. Esophageal varices without bleeding 05/26/2019 Overview (05/26/2019): Added automatically from request for surgery [id number] Alcoholic cirrhosis of liver without ascites 10/2018 Assessment & Plan (08/11/2021 5:43 PM TAXATION ECONOMIST): His recent hospitalization, reportedly, was marked by renal failure and anasarca. Based on his appearance today, he has improved immensely. I will obtain records of the hospitalization from [facility] in [place], [place]. I am not convinced additional changes need be made in his medical management. I stressed the importance of alcohol abstinence. I bluntly told him no alcohol intake was the best. However, he constantly returned to the statement that he only drank 1 beer over the course of the day. I suspect he is down playing the amount he drinks. If recent laboratory work has been obtained, please fax to my attention at [phone]. He will return in 6- 12 months or when clinically indicated. Assessment & Plan (07/04/2020 6:28 PM TAXATION ECONOMIST): Improved in the face of alcohol abstinence. The hepatic synthetic function is intact. He has no evidence of ascites or lesions to suggest hepatocellular carcinoma. I stressed the importance of repeated imaging of the liver every 6 months. I have ordered an ultrasound that will be performed locally. I stressed the importance of ongoing alcohol abstinence. He will return in 1 year or when clinically indicated. Assessment & Plan (07/13/2019 4:03 PM TAXATION ECONOMIST): Patient is currently doing well from a disease standpoint. He underwent an upper endoscopy prior to his clinic visit today and was found to have grade I esophageal varices. He previously required banding on 04/05/19 and 05/23/19. Abdominal ultrasound from 04/05/19 does not show concern for HCC. He has abstained from alcohol and we have congratulated him on his efforts. He endorses pruritis today which could be related to elevated bilirubin. Therefore, we will plan on checking labs today. He also endorses R testicular pain which seems to wax and wane. This could be from fluid related to ascites or a hernia, and we have asked him to be evaluated by his PCP. In regards to his portal hypertension, he is reports being on lasix 20mg and aldactone 50mg and does not have evidence of ascites on exam. He will continue this for now. He had a sentinal bleeding episode in 04/2019 and has undergone 3 EGD's with today's upper endoscopy showing grade I varices. He will undergo repeat EGD in 6 months. He will continue on nadolol for now. He denies overt hepatic encephalopathy and is compliant on lactulose. He should achieve 3-4 bowel movements per day and can decrease lactulose to once a day if diarrhea is bothersome. He will obtain laboratory evaluation today. MELD-Na score: 11 at 04/05/2019 5:53 PM MELD score: 11 at 04/05/2019 5:53 PM Calculated from: Serum Creatinine: 0.83 mg/dL (Rounded to 1 mg/dL) at 04/05/2019 5:53 PM Serum Sodium: 144 mmol/L (Rounded to 137 mmol/L) at 04/05/2019 5:53 PM Total Bilirubin: 0.5 mg/dL (Rounded to 1 mg/dL) at 04/04/2019 1:36 PM INR(ratio): 1.51 at 04/04/2019 5:02 PM Age: 58 years Assessment & Plan (04/07/2019 8:51 AM CDT): Nodular liver appearance suggestive of cirrhosis on OSH CT 04/04 and history of extensive alcohol use. Found to be mildly jaundiced on exam with significant abdominal distention, now s/p diagnostic tap in ED. Negative for SBP, Cx NGTD. 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 Concern for variceal bleed given sudden onset of hematemesis, history of alcoholic cirrhosis and acute Hgb drop. Am repeat Hgb 4.8 x2, now s/p 3U. - active t/s, transfuse >7 - q8h H/H, daily CBCs - octreotide gtt with 50mcg loading dose, BID PPI, ceftriaxone x7 - GI following, endosopy (04/05) showing: - Multiple non-bleeding duodenal ulcers with no stigmata of bleeding. - Portal hypertensive gastropathy. - Red blood in the cardia. - Large (> 5 mm) esophageal varices with red areli sign. Completely eradicated. Banded x5 - to continue octreotide drip at 50mcg/hr x3 days (end 04/07), ceftriaxone x7 days (to end 04/11), repeat endoscopy in 4w Social History Tobacco Use Types Packs/Day Years [...] on file Legal Sex Male 9:11 PM TAXATION ECONOMIST Gender Identity Not on file Sexual Orientation Not on file Occupation Industry Job Start Date Job End Date Not currently employed Not on file Not on file Not o n file Last Filed Vital Signs Vital Sign Reading Time Taken Comments Blood Pressure 162/80 08/11/2021 11:14 AM TAXATION ECONOMIST Pulse 83 08/11/2021 11:14 AM TAXATION ECONOMIST Temperature 36.6 C (97.9 F) 08/11/2021 11:14 AM TAXATION ECONOMIST Respiratory Rate 18 03/03/2021 12:55 PM CDT Oxygen Saturation 98% 03/03/2021 12:55 PM CDT Inhaled Oxygen Concentration - - Weight 78.5 kg (173 lb) 08/11/2021 11:14 AM TAXATION ECONOMIST Height 177.8 cm (5' 10 ) 08/11/2021 11:14 AM TAXATION ECONOMIST Body Mass Index 24.82 08/11/2021 11:14 AM TAXATION ECONOMIST Plan of Treatment Not on file Insurance MEDICARE MEDICARE [facility] Advance Directives For more information, please contact: [phone] * Full Code (Latest Code Status on File) Date Activated Date Inactivated Comments 03/03/2021 12:39 PM 03/03/2021 5:25 PM * Full Code Date Activated Date Inactivated Comments 02/20/2020 11:53 AM 02/20/2020 6:08 PM * Full Code Date Activated Date Inactivated Comments 07/13/2019 10:07 AM 07/13/2019 5:04 PM * Full Code Date Activated Date Inactivated Comments 05/23/2019 12:17 PM 05/23/2019 6:37 PM * Full Code Date Activated Date Inactivated Comments 04/05/2019 12:25 AM 04/07/2019 11:13 PM Care Teams Architecture Professor Relationship Specialty Start Date End Date Paolo Sargent MD PCP - General Family Medicine 01/05/19 Nazario Lawrence MD [address] [address] Referring Physician Orthopedic Surgery 12/21/23
--- OUTSIDE RECORDS SUMMARY | 2024-11-24 10:06 | XMS_ITS | Clinical Summary ---
Author Organization [facility] Address [address] [place] [address] Care Team Providers Care Senior Qa Engineer Name Role Phone Paolo Sargent MD Primary Care Prov ider Nazario Lawrence MD Unavailable [phone] Allergies Active Allergy Reactions Criticality Noted Date [...] 08/11/2021 Assessment & Plan (08/11/2021 5:43 PM E M ASSEMBLER): I stressed the importance of alcohol abstinence as the most effective means of improving liver function. Esophageal varices without bleeding 05/26/2019 Overview (05/26/2019): Added automatically from request for surgery [id number] Alcoholic cirrhosis of liver without ascites 10/2018 Assessment & Plan (08/11/2021 5:43 PM E M ASSEMBLER): His recent hospitalization, reportedly, was marked by renal failure and anasarca. Based on his appearance today, he has improved immensely. I will obtain records of the hospitalization from [facility] in [place], [place]. I am not convinced additional changes [...] obtained, please fax to my attention at [phone]. He will return in 6- 12 months or when clinically indicated. Assessment & Plan (07/04/2020 6:28 PM E M ASSEMBLER): Improved in the face of alcohol abstinence. [...] indicated. Assessment & Plan (07/13/2019 4:03 PM E M ASSEMBLER): Patient is currently doing well from a [...] (02/14/2019): Added automatically from request for surgery [id number] Colovesical fistula 01/05/2019 Resolved Problems Problem Noted Date Diagnosed Date Resolved Date Duodenal ulcer 04/13/2019 08/11/2021 Overview (04/13/2019): Added automatically from request for surgery [id number] Gastrointestinal hemorrhage with melena 04/04/2019 08/11/2021 Overview (04/05/2019): Added automatically from request for surgery [id number] Assessment & Plan (04/07/2019 8:53 AM CDT): [...] (to end 04/11), repeat endoscopy in 4w Surgical History Surgery Date Site/Laterality Comments HIP PINNING 08/02/1979 - 08/01/1980 Right COLONOSCOPY 08/02/2018 - 08/01/2019 x2 CYSTOSCOPY for growth of bladder LEFT COLECTOMY 02/22/2019 Left Surgeon: Mando Siegel US ABDOMEN COMPLETE W LIVER DOPPLER (C) 04/05/2019 Right COLON SURGERY UPPER GASTROINTESTINAL ENDOSCOPY PARACENTESIS Medical History Medical History Date Comments Colon polyp Depression Anxiety Diverticulitis Bladder mass Smoker Enlarged prostate Cirrhosis (HCC) Duodenal ulcer 04/13/2019 Added automatica lly from request for surgery [id number] Family History Medical History Relation Name Comments Leukemia Father Heart disease Mother Heart failure Mother Diverticulitis Sister 1 Hypertension Sister 1 Leukemia Sister 1 Diverticulitis Sister 2 PONV Neg Hx Relation Name Status Comments Father Mother Sister 1 Sister 2 Social History Tobacco Use Types Packs/Day Years [...] on file Legal Sex Male 9:11 PM E M ASSEMBLER Gender Identity Not on file Sexual Orientation Not on file Occupation Industry Job Start Date Job End Date Not currently employed Not on file Not on file Not o n file Obstetrics History Last Filed Vital Signs Vital Sign Reading Time Taken Comments Blood Pressure 162/80 08/11/2021 11:14 AM E M ASSEMBLER Pulse 83 08/11/2021 11:14 AM E M ASSEMBLER Temperature 36.6 C (97.9 F) 08/11/2021 11:14 AM E M ASSEMBLER Respiratory Rate 18 03/03/2021 12:55 PM CDT Oxygen Saturation 98% 03/03/2021 12:55 PM CDT Inhaled Oxygen Concentration - - Weight 78.5 kg (173 lb) 08/11/2021 11:14 AM E M ASSEMBLER Height 177.8 cm (5' 10 ) 08/11/2021 11:14 AM E M ASSEMBLER Body Mass Index 24.82 08/11/2021 11:14 AM E M ASSEMBLER Plan of Treatment Not on file Insurance MEDICARE MEDICARE [facility] Advance Directives For more information, please contact: [phone] * Full Code (Latest Code Status on [...] 12:25 AM 04/07/2019 11:13 PM Care Teams Senior Qa Engineer Relationship Specialty Start Date End Date Paolo Sargent MD PCP - General Family Medicine 01/05/19 Nazario Lawrence MD [address] [address] Referring Physician Orthopedic Surgery 12/21/23
== END 2024-11-24 09:51 | disposition home or self-care (01) ==
PROVIDERS: PCP Family Medicine; Visit Provider Internal Medicine Gastroenterology
DX: K70.31 Alcoholic cirrhosis of liver with ascites (principal); K80.20 Calculus of gallbladder without cholecystitis without obstruction
CPT/HCPCS: 76705

== ENCOUNTER 2025-05-09 09:06 | Outpatient (CLI) | payer MEDICARE, SELFPAY ==
--- NOTE | ~2025-05-09 | US_ITS ---
Examination: US right upper quadrant Clinical History: Cirrhosis. Comparison: 11/24/2024 Technique: Complete abdominal sonography Findings: Liver: Coarse echotexture and lobulated contour. No discrete mass identified. Normal size. No intrahepatic biliary ductal dilatation. Normal hepatopedal flow main portal vein. Common duct: Normal caliber, 3 mm. Gallbladder: Stones. No wall thickening. No pericholecystic fluid. Negative sonographic Katz's sign per technologist report. Spleen: Unremarkable. Pancreas: Obscured by bowel gas. IMPRESSION: 1. No acute findings or significant change. 2. Cirrhosis. No focal mass identified. 3. Gallstones. Reviewed, dictated and finalized at location R.
[2025-05-09 10:55] LABS: Hematocrit 46.4 % (42.0-52.0); Hemoglobin 15.2 g/dL (14.0-18.0); Immature Platelet Fraction Pct 6.4 % (0.9-11.2); Mean Corpuscular HGB Conc 32.8 g/dl (32-36); Mean Corpuscular Hemoglobin 31.4 pg (26-34); Mean Corpuscular Volume 95.9 fl (80-100); Platelet Count Result 114 k/mm3 (150-375); Red Blood Count 4.84 M/mm3 (4.6-6.20); White Blood Count 4.9 K/mm3 (4.5-10.0)
[2025-05-09 11:11] LABS: INR 1.0; Prothrombin Time 13.7 Seconds (11.1-14.7)
[2025-05-09 11:22] LABS: Alanine Aminotransferase 28 U/L (6-50); Albumin Level 4.2 g/dL (3.5-5.1); Alkaline Phosphatase 115 U/L (38-126); Anion Gap 7 mmol/L (4-12); Aspartate Amino Transferase 39 U/L (17-59); Bilirubin,Total 0.7 mg/dL (0.2-1.3); Blood Urea Nitrogen 17 mg/dL (9-20); Calcium 9.3 mg/dL (8.4-10.2); Carbon Dioxide 22 mmol/L (22-30); Chloride 106 mmol/L (98-107); Estimated Glomerular Filt Rate > 60; Glucose 102 mg/dL (65-110); Potassium 4.9 mmol/L (3.4-5.0); Sodium 135 mmol/L (137-145); Total Protein 8.6 g/dL (6.3-8.2)
== END 2025-05-09 09:07 | disposition home or self-care (01) ==
PROVIDERS: PCP Family Medicine; Visit Provider Internal Medicine Gastroenterology
DX: K70.30 Alcoholic cirrhosis of liver without ascites (principal); K70.31 Alcoholic cirrhosis of liver with ascites
CPT/HCPCS: 36415; 76705; 80053; 85027; 85055; 85610